=== PATIENT | male | born 1940 | race Caucasian/White ===

== ENCOUNTER 2017-06-23 11:17 | Inpatient (IN) | payer MEDICARE ==
--- OUTSIDE RECORDS SUMMARY | 2017-06-23 11:41 | XMS REPORT ---
:1940 External Reference #:[id number] Author Organization [facility] Address [address] [place] [address] Phone [phone] Care Team Providers Name Role Phone King Aponte MD Care Team Information Conference Center Coordinator Unavailable Juno Higgins M.D. Primary Care Physician Unavailable Payers Type Date Identification Numbers Payment Provider Subscriber Medicare Primary Policy Number: [id number] Medicare-[facility] Govn Chetan Finleyеленаgirish SRVS PayID: [id number] [address] [place] [address] Medigap Part B Policy Number: [id number] Aar Chetan Alysa Raul PayID: [id number] [address] [place] [address] Problems Date Description Provider Status Onset: 04/05/2009 Essential hypertension Tera Yoder MD Active Onset: 06/15/2013 Diaphragmatic hernia Juno Cohen M.D. Active Onset: 06/15/2013 Esophageal dysmotility Juno Cohen M.D. Active Onset: 06/02/2013 Essential tremor Juno Cohen M.D. Active Onset: 06/02/2013 Esophageal dysphagia Juno Cohen M.D. Active Onset: 03/04/2012 Difficulty speaking Juno Cohen M.D. 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 Polyethylene Active 3350NF 17 GM in [place], Glycol 1000 /0000 8 ounces Juno Rodriguez of water Santa daily Salagen Active 5mg 1 po qid [place], 0000 prn Juno Rodriguez M.D. Melatonin Active 1 po [place], /0000 daily Juno Rodriguez M.D. Requip Active 2mg 1 po bid [place], 0000 Juno Rodriguez M.D. Warfarin Sodium Active 2.5mg [place], 0000 Juno Rodriguez M.D. Levocetirizine Active 5mg 1 po [place], Dihydrochloride / daily Juno Rodriguez M.D. Vitamin D Active as [place], 0000 directed Juno Rodriguez M.D. Fluoxetine HCL Active Capsules 50mg Midura, King /0000 Sumatriptan Active Tablets 100mg Midura, King Succinate Iron Active Tablets Unknown Pseudoephedrine Active Tablets 30mg 1 two Unknown HCL times per day Phenylephrine 04/22 Hx Solution 2.5% nasal Juno N. HCL /2017 spray Vicki - M.D. 06/17 Ipratropium 04/22 Hx Solution 0.06% 3unit 2 sprays J30.0 Juno N. [place] /2017 s in each Vicki, - nostril 4 M.D. 06/17 times day as needed for rhinitis Lansoprazole 04/01 Hx Capsules 30mg 60cap Take One Juno Cortez /2012 DR frederick Capsule Vicki, - By Mouth M.D. 05/14 Twice Day, 30 Minutes Before Breakfast And Dinner Prevacid 08/20 Hx Capsules 30mg 1mont 1 tab po Tera Nixon DR montoya bid (30 MD Beba - min 06/02 before breakfast and dinner) Tizanidine HCL Hx 4mg take 2 po [place], /0000 tid Kate Bernard M.D. 04/22 Neurontin /00 Hx Unknown - 08/20 Stool Softener / Hx Unknown / - 08/20 Simvastatin Hx Unknown / - 08/20 Ranitidine /00 Hx Unknown / - 08/20 Melatonin Hx Unknown / - 08/20 Testosterone Hx Unknown Enanthate / - 06/02 Betamethasone 00/00 Hx 0.05% apply to [place], /0000 feet as Juno Rodriguez Dipropionate - yuliet M.DLucero 05/14 pr Famotidine / Hx Unknown - 12/24 Topamax Hx 100mg 1 po [place], /0000 daily Kate Bernard M.D. 04/22 Klonopin 00/ Hx 1mg 1 po at [place], /0000 qhs then Kate Bernard 1/2 tab M.DLucero 04/22 Prevacid 00/ Hx Unknown - 12/24 Clotrimazole Hx 1-0.05% apply to [place], /0000 feet as Juno Rodriguez - yuliet M.DLucero 05/14 pr Naproxen 00/ Hx Unknown - 06/02 Zofran / Hx Unknown / - 06/02 Beconase Aq / Hx Unknown - 06/02 Singulair Hx 10mg [place], /0000 Kate Bernard M.D. 04/22 Imitrex 00/ Hx 100mg 1 po prn [place], /0000 Kate Bernard M.D. 04/22 Trazodone HCL 00/ Hx 150mg 1 po qhs [place], /0000 Kate Bernard M.D. 04/22 Bentyl 00/00 Hx Unknown / - 12/24 Amantadine HCL 00/00 Hx 100mg 1 po bid [place], /0000 Kate Bernard M.D. 05/14 Ondansetron HCL 00/00 Hx 4mg [place], /0000 Kate Bernard M.D. 04/22 Neurontin Hx 300mg [place], /0000 Kate Bernard M.D. 05/14 Saw [place] / Hx as [place], /0000 directed Kate Bernard M.D. 05/14 Clomiphene 0000 Hx 50mg as [place], Citrate /0000 directed Kate Bernard M.D. 05/14 Omeprazole 00/00 Hx Midura, King /0000 MD - 04/22 Fluoxetine HCL 00/00 Hx Capsules 20mg Midura, King (PMDD) /0000 - 04/22 Levocetirizine Hx Tablets 5mg Duke MCGRAW, Dihydrochloride /0000 [facility] - [facility]/22 Montelukast / Hx Tablets 10mg Midura, King Sodium /0000 MD - 04/22 Morphine Sulfate Hx Tablets 15mg Midura, King /0000 MD - 04/22 Fluoxetine HCL Hx Capsules 10mg Midura, King /0000 MD - 04/22 Qnasl Hx Aerosol 80mcg/Act Alex P.Darian, /0000 Richar - 06/17 Polyethylene / Hx Powder 3350NF Midura, King Glycol 3350 /0000 MD - 04/22 Ropinirole HCL /00 Hx Tablets 1mg Midura, King /0000 MD - 04/22 Azelastine HCL Hx Solution 0.15% Fenstermacher (Nasal) / Janessa HARTMAN - 06/17 Warfarin Sodium /00 Hx Tablets 5mg Midura, King /0000 MD - 04/22 Clonazepam / Hx Tablets 0.125mg Midura, King /0000 Dispers - 04/22 Trazodone HCL Hx Tablets 50mg Midura, King /0000 MD - 04/22 Topiramate / Hx Tablets 100mg Midura, King /0000 MD - 04/22 Symbicort 00 Hx Aerosol 160-4.5mc Duke MCGRAW, /0000 g/Act Андрей - 04/22 Phenylephrine Hx Solution 2.5% Unknown HCL /0000 - 04/22 Vital Signs Date Vital Result Comment 06/17/2017 Weight 154.00 lb Weight in kg's 69.854 Height 67 inches 5'7" Height in cm's 170.2 cm BMI (Body Mass Index) 24.1 kg/m2 04/22/2017 BP Systolic 160 mmHg BP Diastolic 100 mmHg Heart Rate 65 /min Respiratory Rate 17 /min Weight 154.00 lb Weight in kg's 69.854 Height 67 inches 5'7" Height in cm's 170.2 cm BMI (Body Mass Index) 24.1 kg/m2 05/14/2016 BP Systolic 93 mmHg BP Diastolic 58 mmHg Heart Rate 68 /min Respiratory Rate 17 /min Weight 154.00 lb Weight in kg's 69.854 Height 67 inches 5'7" Height in cm's 170.2 cm BMI (Body Mass Index) 24.1 kg/m2 11/28/2015 BP Systolic 99 mmHg BP Diastolic 49 mmHg Heart Rate 71 /min Respiratory Rate 17 /min Weight 154.00 lb Weight in kg's 69.854 Height 67 inches 5'7" Height in cm's 170.2 cm BMI (Body Mass Index) 24.1 kg/m2 08/18/2013 BP Systolic 119 mmHg BP Diastolic 69 mmHg Heart Rate 91 /min Respiratory Rate 16 /min Weight 185.00 lb Weight in kg's 83.916 Height 67 inches 5'7" Height in cm's 170.2 cm BMI (Body Mass Index) 29.0 kg/m2 06/02/2013 BP Systolic 128 mmHg BP Diastolic 72 mmHg Heart Rate 71 /min Respiratory Rate 16 /min Weight 179.00 lb Weight in kg's 81.194 Height 67 inches 5'7" Height in cm's 170.2 cm BMI (Body Mass Index) 28.0 kg/m2 06/02/2013 Respiratory Rate 17 /min Weight 179.00 lb Weight in kg's 81.194 Height 67 inches 5'7" Height in cm's 170.2 cm BMI (Body Mass Index) 28.0 kg/m2 03/04/2012 BP Systolic 150 mmHg BP Diastolic 80 mmHg Heart Rate 74 /min Respiratory Rate 16 /min Weight 186.00 lb Weight in kg's 84.370 Height 67 inches 5'7" Height in cm's 170.2 cm BMI (Body Mass Index) 29.1 kg/m2 08/21/2011 BP Systolic 121 mmHg BP Diastolic 68 mmHg Heart Rate 62 /min Respiratory Rate 16 /min Weight 186.00 lb Weight in kg's 84.370 Height 67 inches 5'7" Height in cm's 170.2 cm BMI (Body Mass Index) 29.1 kg/m2 04/05/2009 BP Systolic 106 mmHg BP Diastolic 76 mmHg Heart Rate 77 /min Respiratory Rate 16 /min Results Test Date Test Result H/L Range Note Surgical Pathology 10/29/2013 S RUN DATE: <SEE NOTE> Surgical Pathology 09/26/2011 Surgical Pathology 2 <SEE NOTE> 1 RUN DATE: 11/01/13 [facility] LAB LIVE PAGE 1 RUN TIME: [address] [place] [id number] Specimen Inquiry Name: CHETAN CARTER : [address]: Johnny Beckman MD Acct: [id number] Unit: [id number] AGE: 73 Location: ENDO Re10/29/13 SEX: M Status: REG REF SPEC: [id number] FRANCISCO: 10/29/13- SUBM DR: Johnny Beckman MD REQ: [id number] RECD: 10/29/13-1170 STATUS: SOUT OTHR DR: King Cohen MD _ ORDERED: LEVEL IV FINAL DIAGNOSIS Esophagus, GE junction, biopsies: A. Gastroesophageal transition zone mucosa with mild reflux esophagitis and extensive goblet cell metaplasia. B. Reactive squamous and glandular epithelial changes. C. No dysplasia identified. CLINICAL HISTORY Garcia's esophagus, GERD POST-OPERATIVE DIAGNOSIS EGD, u.c. crico negative, prominent epiglottis, esophagus negative. Distal esophagus islands of unremarkable Garcia's. No erosive esophagitis. Stomach, pylorus , and duct retained vegetable material - little digestion. No mucosal disease - impaired gastric peristalsis despite antral initiation. Conclusion: Stable Garcia's, 2. Persistent gastric motility disorder and bezoars. GROSS DESCRIPTION The specimen is received in formalin labeled Chetan Carter, Garcia's Biopsies and consists of a 0.8 x 0.5 x 0.2 cm. aggregate of multiple celaya-white irregular soft tissue fragments. Submitted entirely, one cassette. Signed (signature on file) Mike Nuñez MD 1410 END OF REPORT * ML=Testing performed at Main Lab DEPARTMENT OF PATHOLOGY, [address] [place] [address] Mike Nuñez M.D. Director [facility] # [id number] 2 --- RUN DATE: 09/27/11 [facility] NMI LIVE PAGE 1 RUN TIME: 1340 Specimen Inquiry RUN USER: INTERFACE -- [id number] Status: REG REF Re09/26/11 Age/Sex: 71/M Unit#: [id number] Location: [facility]. : [birth year] -- Specimen: [id number] SOUT Spec Date:09/26/11- Dr: Johnny Beckman MD Spec Type: SURGICAL P Received:09/26/11-1252 Copies to: Juno pearce MD SPECIMEN DISTAL ESOPHAGUS BIOPSIES HISTORY POST-OP DIAGNOSIS: No hiatal hernia. Possible short segment Garcia's. CLINICAL INFORMATION: Voice change. Choking episodes. Reflux. GROSS DESCRIPTION The specimen is received in formalin labelled Chetan Carter, Distal Esophagus Biopsies, and consists of several fragments of celaya-brown tissue measuring in aggregate 0.8 x 0.8 x 0.2 cm. Submitted entirely, one cassette. DIAGNOSIS Distal esophagus, biopsy: A. Squamous mucosa with evidence of reflux disease. B. Cardia type mucosa with extensive intestinal metaplasia and acute gastritis. C. Indefinite for dysplasia. COMMENT Due to marked acute inflammation, definitive evidence of dysplasia cannot be done at this point. Repeat biopsy after treatment and close follow-up is recommended. Signed Electronically by: LEON HYDE 09/27/11 1340 -- -- DEPARTMENT OF PATHOLOGY, [address] [place] [address] [facility] Permit #[id number] Mike Nuñez M.D. Director Leon Hyde M.D. [employer] Dir panfilo -- Procedures Date CPT Code Description Status 05/14/2016 48990 Fiberoptic Laryngoscopy Completed 08/18/2013 62846 Behavioral & Qualitative Analysis Of Voice & Completed Resonance 08/18/2013 80354 Videostroboscopy Completed 06/02/2013 85318 Flex Fiberoptic End Of Swallow Ta Completed 06/02/2013 59818 Eval Of Swallowing Function Oral Completed 03/04/2012 32384 Eval Of Speech, Voice, Communicat Completed 03/04/2012 36198 Videostroboscopy Completed 08/21/2011 41833 Tympanometry Completed 08/21/2011 49902 Comprehensive Audiogram Completed 08/21/2011 82418 Fiberoptic Laryngoscopy Completed 04/05/2009 07005 Fiberoptic Laryngoscopy Completed Encounters Type Date Location Provider CPT E/M Dx Office Visit 06/17/2017 2:15p [place],After 03/31/07 Juno Cohen, 69453 J30.0 [place] H92.02 Office Visit 04/22/2017 3:15p [place],After 03/31/07 Juno Cohen 98404 R51 [place] J30.0 J30.0 R51 Office Visit 11/28/2015 1:45p [place],After 03/31/07 Juno Cortez 66000 S02.2xxD [place] Cohen Office Visit 06/15/2013 2:45p [place],After 03/31/07 Juno Cortez 74094 530.5 [place] Cohen 553.3 Office Visit 12/25/2011 2:15p [place],After 03/31/07 [place] [address] 784.49 530.81 Office Visit 10/23/2011 2:45p [place],After 03/31/07 [place] [address] 784.49 530.81 Office Visit 08/21/2011 2:00p [place],After 03/31/07 [place] [address] 784.49 530.81 389.10 Office Visit 04/05/2009 2:00p [place],After 03/31/07 [place] [address] 527.2 787.20 478.79 401.9 Plan of Care 06/17/2017 - Juno Cohen M.D.J30.0 Vasomotor rhinitisComments:The patient returned today for his rhinitis that I thought was vasomotor rhinitis. He has stopped the Phenylephrine and the Q-Nasl and the Azelastine and the Ipratropium bromide and his headaches are better and his nose is feeling good. As long as he is dong well that is what is important. I do recommend some saline spray. His is to start CPAP and I have recommended he use humidity when he starts the CPAP. you can also get CPAP induced rhinitis and the best option if this happens is the Ipratropium bromide at bedtime.H92.02 Otalgia, left earComments:He also reports some left ear pain. I think this might be referred pain from some cervical musculoskeletal problems He used to box.
--- OUTSIDE RECORDS SUMMARY | 2017-06-23 11:42 | XMS REPORT ---
:1940 External Reference #:[id number] Author Organization [facility] Address [address] [facility] [address] [place] [address] Phone [phone] Care Team Providers Name Role Phone King Aponte MD Primary Care Physician Unavailable Payers Type Date Identification Numbers Payment Provider Subscriber Medicare Primary Effective: Policy Number: Medicare Chetan Watt 1997 [id number] Raul PayID: [id number] [address] [place] [address] [facility] Policy Number: [facility] Chetan Carter [id number] PayID: [id number] [address] [place] [address] Problems Date Description Provider Status Onset: 06/07/2013 Electrocardiogram abnormal Isabella Bejarano M.D. Onset: 06/07/2013 Mixed hyperlipidemia Isabella Bejarano M.D. Onset: 06/07/2013 Conduction disorder of the heart Isabella Bejarano M.D. Onset: 07/01/2013 Supraventricular premature beats Nurse Visit cc Active Onset: 07/01/2013 Premature beats Nurse Visit cc Active Onset: 09/08/2013 Chest pain Isabella Bejarano M.D. Onset: 04/11/2014 Lumbosacral stenosis Chetna Alcazar M.D. Active Onset: 04/11/2014 Chronic migraine without aura Chetna Alcazar M.D. Active Onset: 04/11/2014 Restless legs Chetna Alcazar M.D. Active Onset: 04/11/2014 Idiopathic peripheral neuropathy Chetna Alcazar M.D. Active Onset: 04/19/2015 Lesion of ulnar nerve Chetna Alcazar M.D. Active Onset: 11/09/2015 Localized, primary osteoarthritis Jodi Brothers M.D. 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 Cigarette Use Never Smoked Cigarettes ETOH Use Denies alcohol use Smoking Patient has never smoked Recreational Drug Use Denies Drug Use Daily Caffeine Consumes on average 2 cups of 2-3 regular coffee per day Exercise Type/Frequency Exercises regularly walks every other on treadmill, dance Not recently, not feeling well 04/24/17, still on hold 06/16/17 Allergies, Adverse Reactions, Alerts Date Description Reaction Status Severity Comments 09/04/2015 Wellbutrin "drunk feeling" active when taken with trazodone 04/28/2013 NKDA inactive Medications Medication Date Status Form Strength Qnty SIG Indications Ordering Provider Ondansetron 05/31 Active Tablets 4mg 30tab 1 tab Chetna /2015 Dispers s under gregory Alcazar M.D. every 8 hours as needed for nausea Sumatriptan Active Tablets 100mg 1 tab po Breiman, Succinate / prn MD Juno migraine Polyethylene Active Powder 3350NF qam Darlow, Glycol 3350 /0000 Garret Farmer MD Pilocarpine Active Tablets 5mg 1x day prn Breiman, Hydrochloride / MD [facility] Warfarin Sodium Active Tablets 2.5mg 1 tab po Brown, by mouth Blaze, per protocol Levocetirizine Active Tablets 5mg 90tab 1 po qd Unknown Dihydrochloride /0000 s Omeprazole [address] 20mg 30cap 1 by mouth Unknown /0000 s every day Morphine Sulfate Active Tablets 15mg 60tab 4 tablets Unknown Ir /0000 s po at night Requip 00 Active Tablets 1mg 90tab 1 to 2 Unknown /0000 s tabs everyday Fluoxetine HCL Active Capsules 20mg 2 by mouth Midura, /0000 once MD King daily. 50 mg total per day. Planning to taper to none 06/16/17 Vitamin D3 Active Capsules 2000Unit 1 by mouth Unknown /0000 every day Vitamin B Active Tablets 1 by mouth Unknown Complex /0000 every day Ferrous Active Tablets 325(36Fe) take 1 Unknown Gluconate /0000 mg tablet by mouth twice a day Melatonin Active Capsules 3mg 1 tab by Unknown /0000 mouth every night at bedtime Testosterone Active Solution Im once Unknown Cypionate /0000 every 3 weeks Fluoxetine HCL Active Capsules 10mg 1 by mouth Unknown / every day, in addition to 20 mg tabs. Total 50 mg per day. Planning to taper to none 06/16/17 [place] 03/14 Hx Tablets 5-325mg 30tab 1-2 by s mouth q4-6 Brothers, - hour as M.D. 10/08 needed pain [place] 02/06 Hx Tablets 5-325mg 40tab one to two s tabs by Brothers, - mouth M.D. 02/26 every 4- hours as needed pain [place] 01/28 Hx Tablets 5-325mg 40tab 1-2 by s mouth Brothers, - every 4 to M.D. 02/26 6 hours needed Ondansetron 06/28 Hx Tablets 4mg 30tab 1 tab Q 8h Dispers s sl prn for Ottoniel, - nausea M.D. 07/26 Enoxaparin 06/07 Hx Solution 80mg/0.8M Qutaybeh Sodium /2013 L S. - Maghaydah, 07/23 M.D. Gabapentin 02/02 Hx Capsules 300mg 90cap take 1 po s qhs Ottoniel, - M.D. 04/11 Ropinirole HCL Hx Tablets 1mg 90tab 1 tab by Chetna / s mouth in Ottoniel, - am, 1 by M.DLucero 09/02 mouth hour prior to bedtime, Nasonex 00/00 Hx Suspension 50mcg/Act Breiman, /0000 MD Juno - 04/28 Flunisolide /00 Hx Solution 25mcg/Act Brown, /0000 (0.025%) Kate Thaukr MD 04/28 Androgel Pump 00/00 Hx Gel 20.25mg/A Topical Law, Andrea, /0000 ct daily - (1.62%) 06/07 Clonazepam /00 Hx Tablets 1mg 1 tab tid Brown, /0000 Kate Thakur MD 06/29 Morphine Sulfate 00/00 Hx Tablets 15mg 1 tab qid Brown, /0000 prn Kate Thakur MD 06/07 Famotidine Hx Tablets 40mg 1 tab po [place], /0000 daily Kate Kellogg [employer] 06/07 Tizanidine HCL / Hx Tablets 4mg 1 tab po Brown, /0000 qhs up to Blaze - 6/day prn 09/11 (pt /2015 discontinu ed) Trazodone HCL Hx Tablets 100mg 1 tab po Breiman, /0000 qhs prn- MD Juno - pt states 10/08 tapering, currently 50mg Topiramate /00 Hx Tablets 100mg 1 po qam Breiman, /0000 and 3 po MD Juno - qpm 10/08 Montelukast /00 Hx Tablets 10mg 1 tab po Breiman, Sodium /0000 qhs MD Juno - 07/26 Pancrelipase / Hx Caps [id number] 1 cap po West, /0000 Part s tid estefani Turner MD - meals 02/26 Enoxaparin /00 Hx Solution 80mg/0.8M Brown, Sodium /0000 L Kate Thakur MD 04/28 Levocetirizine 00 Hx Tablets 5mg Brown, Dihydrochloride /0000 Kate Thakur MD 04/28 Fluticasone 00 Hx Suspension 50mcg/Act Brown, Propionate /0000 Kate Thakur MD 04/28 Ondansetron Odt Hx Tablets 4mg 30tab 1 tab sl Chetna /0000 Dispers s prn Kate Alcazar M.D. 05/31 Ondansetron HCL Hx Tablets 4mg Kevin, /0000 Blaze - 01/18 Axiron Hx Solution 30mg/Act Unknown / - 04/[address] 30mg Gisela, /0000 MD Juno - 04/28 Nystatin Hx Suspension [id number] Rk, /0000 t/ML MD Johnny - 04/28 Androderm Hx Patches 4mg/24HR Kevin, / 24HR Blaze, - 04/28 Amoxicillin/Clav Hx Tablets 875-125mg Kevin ulanate / Blaze, Potassium - 04/28 Prednisone Hx Tablets 10mg Kevin, / Blaze, - 04/[address] 15mg Gisela, /0000 MD Juno - 04/28 Levofloxacin Hx Tablets 750mg Kevin, / Blaze, - 04/28 Clarithromycin Hx Tablets 500mg Unknown /0000 - 04/28 Testosterone Hx Oil 200mg/ml Kevin Enanthate / Blaze, - 04/28 Betamethasone Hx Cream 0.05% Breiman, Dipropionate /0000 MD Juno - 11/01 Beconase Aq Hx Suspension 42mcg/Spr Celiaimalisette, /0000 ay MD Juno - 09/14 Testosterone Hx q 2 weeks Unknown /0000 - 02/26 Tramadol Hx Tablets 50mg 50tab prn Unknown /0000 s - 09/14 Oxycodone HCL Hx Tablets 5mg 30tab 1-2 po qhs Unknown /0000 s prn - 03/01 Qnasl Hx Aerosol 80mcg/Act 8.700 2 Unknown /0000 gm inhalation - s in each 06/15 nostr once daily Gabapentin Hx Capsules 100mg 1 by mouth Unknown /0000 qhs - 08/30 Trazodone HCL Hx Tablets 50mg additional Unknown /0000 prn - pt - states 03/07 tapering /2015 Lyrica 00/00 Hx Capsules 50mg (? 3 tablets Unknown /0000 Dose) at bedtime - 09/02 Ropinirole HCL Hx Tablets ER 2mg 1 by mouth Unknown ER /0000 24HR every - night as 09/02 Linzess Hx Capsules 145mcg Take 04/03 Unknown /0000 prn - 04/24 Clonazepam Hx Tablets 0.5 tapering Unknown /0000 down to - 04/03 tab 03/04 by mouth daily Iron Complex Hx Capsules 1 by mouth Unknown /0000 every day - 11/14 Wellbutrin XL Hx Tablets ER 150mg take 1 by Unknown /0000 24HR mouth each - day 04/24 Ipratropium Hx Solution 0.06% instill 2 Unknown [place] sprays - into each 06/15 nostril twice a day as needed for runny nose Azelastine HCL Hx Solution 0.15% Unknown (Nasal) / - 06/15 Vital Signs Date Vital Result Comment 06/16/2017 Height 67.5 inches 5'7.50" Weight 186.25 lb Heart Rate 74 /min BP Systolic Sitting 118 mmHg Lue large cuff BP Diastolic Sitting 70 mmHg Lue large cuff Respiratory Rate 16 /min O2 % BldC Oximetry 98 % On Ra BMI (Body Mass Index) 28.7 kg/m2 04/24/2017 Height 67.5 inches 5'7.50" Weight 176.50 lb no shoes Heart Rate 72 /min BP Systolic Sitting 148 mmHg Rue reg cuff BP Diastolic Sitting 84 mmHg Rue reg cuff Respiratory Rate 16 /min O2 % BldC Oximetry 98 % On Ra BMI (Body Mass Index) 27.2 kg/m2 Neck Circumference in inches 16 03/05/2017 Height 67.5 inches 5'7.50" Weight 177.00 lb Heart Rate 64 /min BP Systolic Sitting 110 mmHg BP Diastolic Sitting 64 mmHg Respiratory Rate 16 /min BMI (Body Mass Index) 27.3 kg/m2 11/15/2016 Height 67.5 inches 5'7.50" Weight 160.00 lb Heart Rate 60 /min BP Systolic Sitting 112 mmHg BP Diastolic Sitting 82 mmHg Respiratory Rate 12 /min BMI (Body Mass Index) 24.7 kg/m2 10/09/2016 Height 67.5 inches 5'7.50" Weight 156.00 lb with shoes Heart Rate 68 /min BP Systolic Sitting 112 mmHg LA reg cuff BP Diastolic Sitting 62 mmHg LA reg cuff BMI (Body Mass Index) 24.1 kg/m2 Ejection Fraction 55% - 60% echo 06/09/13 05/02/2016 Height 67.5 inches 5'7.50" Weight 155.00 lb Respiratory Rate 16 /min Pain Level 3 BMI (Body Mass Index) 23.9 kg/m2 04/04/2016 Height 67.5 inches 5'7.50" Weight 155.00 lb Body Temperature 98.9 F BMI (Body Mass Index) 23.9 kg/m2 03/18/2016 Height 67.5 inches 5'7.50" Weight 155.00 lb Pain Level 8 BMI (Body Mass Index) 23.9 kg/m2 03/07/2016 Height 67.5 inches 5'7.50" Weight 155.00 lb Pain Level 2 BMI (Body Mass Index) 23.9 kg/m2 02/28/2016 Height 67.5 inches 5'7.50" Weight 155.00 lb Heart Rate 80 /min BP Systolic Sitting 122 mmHg BP Diastolic Sitting 68 mmHg Respiratory Rate 18 /min BMI (Body Mass Index) 23.9 kg/m2 02/05/2016 Height 67.5 inches 5'7.50" Weight 157.00 lb Body Temperature 97.6 F BMI (Body Mass Index) 24.2 kg/m2 01/17/2016 Height 67.5 inches 5'7.50" Weight 157.00 lb Heart Rate 69 /min BP Systolic 121 mmHg BP Diastolic 77 mmHg BMI (Body Mass Index) 24.2 kg/m2 12/14/2015 Height 65.5 inches 5'5.50" Weight 165.00 lb Pain Level 5 BMI (Body Mass Index) 27.0 kg/m2 11/09/2015 Height 65.5 inches 5'5.50" Weight 157.00 lb Heart Rate 60 /min Respiratory Rate 16 /min Pain Level 7 BMI (Body Mass Index) 25.7 kg/m2 09/20/2015 Height 67.5 inches 5'7.50" Weight 156.00 lb Heart Rate 76 /min BP Systolic Sitting 122 mmHg BP Diastolic Sitting 64 mmHg Respiratory Rate 16 /min BMI (Body Mass Index) 24.1 kg/m2 09/19/2015 Height 67.5 inches 5'7.50" Weight 156.75 lb with shoes Heart Rate 72 /min BP Systolic 126 mmHg LA reg cuff BP Diastolic 78 mmHg LA reg cuff BMI (Body Mass Index) 24.2 kg/m2 Ejection Fraction 55% stress test 07/22/13 09/04/2015 Height 67.5 inches 5'7.50" Weight 161.00 lb Heart Rate 74 /min BP Systolic Sitting 106 mmHg BP Diastolic Sitting 62 mmHg Respiratory Rate 16 /min BMI (Body Mass Index) 24.8 kg/m2 07/06/2015 Height 67.5 inches 5'7.50" Weight 168.00 lb Heart Rate 76 /min BP Systolic Sitting 110 mmHg BP Diastolic Sitting 76 mmHg Respiratory Rate 17 /min BMI (Body Mass Index) 25.9 kg/m2 04/19/2015 Height 67.5 inches 5'7.50" Weight 168.00 lb Heart Rate 60 /min BP Systolic Sitting 120 mmHg BP Diastolic Sitting 78 mmHg Respiratory Rate 14 /min BMI (Body Mass Index) 25.9 kg/m2 11/28/2014 Height 67.5 inches 5'7.50" Weight 172.00 lb w/shoes Heart Rate 66 /min BP Systolic Sitting 118 mmHg LA reg cuff BP Diastolic Sitting 78 mmHg LA reg cuff BMI (Body Mass Index) 26.5 kg/m2 Ejection Fraction 55 Stress test 07/22/13 11/02/2014 Height 67.5 inches 5'7.50" Weight 172.00 lb Heart Rate 64 /min BP Systolic Sitting 100 mmHg BP Diastolic Sitting 68 mmHg Respiratory Rate 14 /min BMI (Body Mass Index) 26.5 kg/m2 08/31/2014 Height 67.5 inches 5'7.50" Weight 182.00 lb Heart Rate 68 /min BP Systolic Sitting 120 mmHg BP Diastolic Sitting 66 mmHg Respiratory Rate 16 /min BMI (Body Mass Index) 28.1 kg/m2 04/11/2014 Height 67.5 inches 5'7.50" Weight 190.00 lb Heart Rate 72 /min BP Systolic Sitting 106 mmHg BP Diastolic Sitting 64 mmHg Respiratory Rate 16 /min BMI (Body Mass Index) 29.3 kg/m2 03/02/2014 Height 67.5 inches 5'7.50" Weight 196.00 lb Heart Rate 80 /min BP Systolic Sitting 118 mmHg LA, reg BP Diastolic Sitting 74 mmHg LA, reg BMI (Body Mass Index) 30.2 kg/m2 09/22/2013 Height 67.5 inches 5'7.50" Weight 188.00 lb Heart Rate 88 /min BP Systolic Sitting 114 mmHg BP Diastolic Sitting 68 mmHg Respiratory Rate 18 /min BMI (Body Mass Index) 29.0 kg/m2 09/15/2013 Height 67.5 inches 5'7.50" Weight 180.00 lb Heart Rate 100 /min BP Systolic Sitting 120 mmHg BP Diastolic Sitting 76 mmHg Respiratory Rate 16 /min BMI (Body Mass Index) 27.8 kg/m2 09/08/2013 Heart Rate 80 /min BP Systolic Sitting 100 mmHg BP Diastolic Sitting 70 mmHg Respiratory Rate 16 /min 07/26/2013 Heart Rate 96 /min BP Systolic Sitting 128 mmHg BP Diastolic Sitting 68 mmHg 06/07/2013 Weight 187.00 lb Heart Rate 68 /min BP Systolic Sitting 130 mmHg BP Diastolic Sitting 80 mmHg Respiratory Rate 16 /min 04/28/2013 Heart Rate 64 /min BP Systolic Sitting 120 mmHg BP Diastolic Sitting 76 mmHg Respiratory Rate 12 /min 03/04/2013 Height 67.5 inches 5'7.50" Weight 174.00 lb Heart Rate 63 /min BP Systolic 114 mmHg BP Diastolic 71 mmHg BMI (Body Mass Index) 26.8 kg/m2 Results Test Date Test Result H/L Range Note Laboratory test 07/20/2015 Surgical Pathology SEE RESULT BELOW 1 finding Laboratory test 09/08/2013 Troponin I 0.00 ng/mL <0.03 2, 3 finding Basic Metabolic Panel 09/08/2013 Sodium 136 mmol/L 133-145 2 Potassium 3.9 mmol/L 3.7-5.6 2 Chloride 105 mmol/L 101-111 2 Co2 Carbon Dioxide 26 mmol/L 22-32 2 Anion Gap 5 mmol/L 2-11 2 Glucose 93 mg/dL 70-100 2 Blood Urea Nitrogen 22 mg/dL 6-24 2 Creatinine 1.40 mg/dL High 0.67-1.17 2 BUN/Creatinine Ratio 15.7 8-20 2 Calcium 9.0 mg/dL 8.6-10.3 2 Egfr Non- 50.0 >60 2 Egfr 64.2 >60 2, 4 Order 07/01/2013 Holter Monitor <pending> 1 SEE RESULT BELOW Name: CHETAN CARTER : [address]: Johnny Beckman MD Acct: [id number] Unit: [id number] AGE: 75 Location: ENDO Re07/20/15 SEX: M Status: REG REF SPEC: [id number] FRANCISCO: 07/20/15-[address] [facility] [address]: Johnny Beckman MD REQ: [id number] RECD: 07/20/153283 STATUS: VALERIE FLOWERS DR: Asim Slaughter MD _ ORDERED: LEVEL IV FINAL DIAGNOSIS Esophagus, distal, biopsy: -- Squamous and columnar mucosa with chronic inflammation and intestinal metaplasia. -- Negative for dysplasia. CLINICAL HISTORY Resolved Bezoar 10/13/12 POST-OPERATIVE DIAGNOSIS Body of esophagus - normal, distal esophagus 1-2 cm. 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 Signed (signature on file) Shannen Huynh MD 1359 END OF REPORT * ML=Testing performed at Main Lab DEPARTMENT OF PATHOLOGY, [address] [place] [address] Mike Nuñez M.D. Director [facility] # [id number] 2 PLEASE CALL RESULTS TO [phone] 3 Reference Range and Interpretation: TnI (ng/mL) Interpretation Less Than 0.03 ng/mL Not supportive of diagnosis of [place] 0.03 - 0.50 ng/mL Indeterminate: suggest serial studies if clinically indicated. Greater than 0.5 ng/mL Consistent with diagnosis of [place] 4 Because ethnic data is not always readily available, this report includes an eGFR for both -Americans and non- Americans. The National Kidney Disease Education Program (NKDEP) does not endorse the use of the MDRD equation for patients that are not between the ages of 18 and 70, are , have extremes of body size, muscle mass, or nutritional status, or are non- or non-. According to the National Kidney Foundation, irrespective of diagnosis, the stage of the disease is based on the level of kidney function: Stage Description GFR(mL/min/1.73 m(2)) 1 Kidney damage with normal or decreased GFR 90 2 Kidney damage with mild decrease in GFR 60-89 3 Moderate decrease in GFR 30-59 4 Severe decrease in GFR 15-29 5 Kidney failure <15 (or dialysis) Procedures Date CPT Code Description Status 04/29/2017 66030 Polysomnography Sleep Staging 4+ Parameters Completed 10/09/2016 96023 EKG Tracing & Interpretation Completed 03/12/2016 90084 Neuroplasty &/Or Transposition; Ulnar Nerve At Completed Elbow 03/12/2016 42912 Neuroplasty &/Or Transposition; Ulnar Nerve At Completed Elbow 01/23/2016 64427 Neuroplasty &/Or Transposition; Ulnar Nerve At Completed Elbow 01/23/2016 73226 Neuroplasty &/Or Transposition; Ulnar Nerve At Completed Elbow 09/19/2015 49755 EKG Tracing & Interpretation Completed 07/06/2015 02731 Nerve Conduction 07-08 Studies Completed 07/06/2015 49494 Needle Electromyography Complete, Five Or More Muscles Completed Studied 11/28/2014 08214 EKG Tracing & Interpretation Completed 03/02/2014 69543 EKG Tracing & Interpretation Completed 09/08/2013 35224 EKG Tracing & Interpretation Completed 08/16/2013 21228 Treadmill Interp/Report Only Completed 08/16/2013 62952 Stress Test Supervsn W/Out I/R Completed 07/22/2013 94470 ECHO Stress Test Incl Perf Contiuous ekg Monitoring Completed W/Phys Superv 07/22/2013 01576 ECHO Stress Test Incl Perf Contiuous ekg Monitoring Completed W/Phys Superv 07/01/2013 21109 Holter Monitoring 24 HR New Completed 06/10/2013 48932 ECHO Transthoracic, Real-Time 2D With Doppler And Color Completed Flow 06/07/2013 54880 EKG Tracing & Interpretation Completed 07/15/2012 14818 Xray Knee 3 Views Completed 07/15/2012 19321 Rad Exam; Knee, Ap&L Completed 02/07/2012 07076 Nerve Conduction, Sensory Completed 02/07/2012 20164 Nerve Conduction, Motor W/F-Wave Study Completed 02/07/2012 52720 Nerve Conduction, Motor W/O F-Wave Study Completed 02/07/2012 22780 Needle Electromyography Each Extremity W/Related Completed Paraspinal Areas 12/30/2011 80613 Arthroscopy,Shoulder Decompression Of Subacromial Space Completed W/Acromio 12/30/2011 14641 Arthroscopy,Shoulder Decompression Of Subacromial Space Completed W/Acromio 12/30/2011 18195 Arthroscopy Shoulder Debridement Limited Completed 12/30/2011 01865 Arthroscopy Shoulder Debridement Limited Completed Encounters Type Date Location Provider CPT E/M Dx Office Visit 04/24/2017 [place] [address] R06.83 2:30p [facility] [employer] [facility] G25.81 G47.50 Office Visit 03/05/2017 1:30p [facility] Chetna Alcazar M.D. 31715 G31.84 [facility] [employer] Office Visit 11/15/2016 2:30p [facility] Chetna Alcazar M.D. 32633 G25.81 [facility] [employer] R41.89 Office Visit 10/09/2016 4:40p [facility] Helen Wallace, 18747 E78.2 M.DLucero I34.0 I36.1 Office Visit 02/28/2016 11:00a [facility] Chetna Alcazar M.D. 39200 G56.22 [facility] [employer] R41.89 G25.81 Office Visit 12/14/2015 11:00a [facility] Jodi Brothers 75932 G56.21 Of Soledad Pratt G56.22 Office Visit 11/09/2015 1:00p [facility] Jodi Brothers 60396 G56.21 Of Soledad Pratt G56.22 Office Visit 09/20/2015 2:45p [facility] Chetna Alcazar M.D. 43367 G56.21 [facility] [employer] G56.22 R47.81 Office Visit 09/19/2015 3:20p [facility] Helen Wallace, 13775 E78.2 MLuceroDLucero I34.0 I36.1 Office Visit 09/04/2015 3:30p [facility] Chetna Alcazar M.D. 00136 G56.21 [facility] [employer] G56.22 R47.81 Office Visit 07/06/2015 1:00p [facility] Chetna Alcazar M.D. 90866 G56.21 [facility] [employer] G56.22 G56.02 M54.12 R63.4 Office Visit 04/19/2015 2:30p [facility] Chetna Alcazar M.D. 61128 G25.81 [facility] [employer] G43.709 G56.22 G56.21 Office Visit 03/24/2015 8:46a [facility],rodrigue Gasca, 54711 R55 Hospitalists N.P. R00.2 Office Visit 03/23/2015 8:46a [facility], Oskar Estes M.D. 43531 R55 Hospitalists R00.2 Office Visit 11/28/2014 2:40p [facility] Qutaybeh S. Maghaydah, 45784 356.9 M.D. 794.31 272.2 424.0 397.0 Office Visit 11/02/2014 2:00p [facility] [place] [address] 346.70 [facility] [employer] Office Visit 08/31/2014 3:00p [facility] Chetna Alcazar, 22035 724.02 Services [facility] [employer] MLuceroDLucero 333.94 346.70 780.79 Office Visit 04/11/2014 3:00p [facility] Chetna Alcazar M.D. 30056 724.02 [facility] [employer] 356.9 346.70 333.94 Office Visit 03/02/2014 2:40p [facility] Qutaybeh S. Maghaydah, 14308 794.31 M.D. 272.2 397.0 424.0 Office Visit 09/22/2013 2:30p [facility] MINNIE Díaz 01612PWT 724.02 794.31 356.9 728.89 786.50 Office Visit 09/15/2013 2:15p [facility] Chetna Alcazar M.D. 03918 346.70 [facility] [employer] 724.02 333.94 Office Visit 09/08/2013 2:30p [facility] Qutaybeh S. Maghaydah, 40268 794.31 M.DLucero 786.50 272.2 Office Visit 08/16/2013 10:30a [facility] Qutaybeh S. Maghaydah, 12034 794.31 M.D. 427.89 Office Visit 07/26/2013 1:20p [facility] Qutaybeh S. Maghaydah, 27722 427.61 M.DLucero 427.69 272.2 424.0 397.0 Office Visit 07/22/2013 11:30a [facility] Qutaybeh S. Maghaydah, 83710 794.31 M.DLucero 427.61 427.69 Office Visit 06/07/2013 1:40p [facility] Helen Wallace, 25413 346.70 M.DLucero 794.31 272.2 427.89 Office Visit 04/28/2013 1:30p [facility] Chetna Alcazar M.D. 04172 346.70 [facility] [employer] 333.94 724.02 356.9 Office Visit 03/04/2013 9:30a [facility] Of Giacomo Ortiz M.D. 15793 836.2 C.M.ALucero 840.9 840.0 Office Visit 10/08/2012 2:45p [facility] Of Ambrosio Coughlin 99290 836.2 C.MJonny Pratt Office Visit 09/03/2012 10:30a [facility] Of Ambrosio Coughlin 40315 719.46 C.Rafi Pratt 840.7 Office Visit 07/29/2012 10:15a [facility] Of Ambrosio Coughlin 33794 719.46 C.MJonny Pratt 726.12 Office Visit 07/15/2012 10:15a [facility] Of Ambrosio Coughlin 88511 719.46 C.Rafi Pratt Office Visit 02/07/2012 12:30p [facility] Chetna Alcazar M.D. 48115 356.9 Services Of Bi 724.02 788.62 Office Visit 02/03/2012 1:30p [facility] Chetna Alcazar M.D. 96760 333.94 Services Of Bi 724.02 Office Visit 12/19/2011 11:00a [facility] Of Ambrosio Coughlin M.D. 22427 726.2 C.MJonny 726.19 Office Visit 11/21/2011 10:00a [facility] Of Ambrosio Coughlin 66538 726.19 C.MJonny Pratt 726.2 Office Visit 11/18/2011 1:45p [facility] Chetna Alcazar M.D. 44768 346.90 Services Of [employer] 333.94 Office Visit 05/03/2010 9:00a [facility] Of Giacomo Ortiz M.D. 86619 726.5 C.M.A. 728.89 Office Visit 03/01/2010 8:30a [facility] Of Giacomo Ortiz M.D. 14184 726.5 C.M.A. Office Visit 04/19/2009 1:45a [facility],pc Ashlyn Vyas, 72314 977.9 Hospitalists M.D. 304.90 Office Visit 04/18/2009 2:00a [facility], Ashlyn Lilliam, 74636 300.00 Hospitalists M.D. 304.90 Office Visit 04/17/2009 2:15a [facility], Ashlyn Pradoima, 05786 292.0 Hospitalists M.D. 977.9 300.00 276.8 Office Visit 04/16/2009 3:15a [facility], Ashlyn Vyas, 48158 427.89 Hospitalists M.D. 977.9 292.0 276.8 Office Visit 04/15/2009 12:30a [facility], Nilton Albrecht, 72410 977.9 Hospitalists M.D. 304.90 427.89 Office Visit 01/20/2007 9:30a [facility] Cayetano Olmstead, 38216 354.2 Of [facility] 723.1 723.0 Plan of Care Future Appointment(s):09/12/2017 2:15 pm - Chetna Alcazar M.D. at [facility] [facility]06/16/2017 - Rosario Golden DNP, RN, MANAGER H[employer]AN [employer]OURCES-BCG47.33 Obstructive sleep apnea (adult) (pediatric)New Orders:Sleep-HomecareComments: NPSG AHI 16.6/hour, worse supine 47/hour, prone 40/hour, madelaine oxygen 79% wt 177Follow up:6 weeksRecommendations:Sleep apnea to start PAP at 5-12 cm Review of sleep study in detail. Review of risks of untreated sleep apnea including cardiovascular events: rhythm irregularities, heart attack , stroke; gastroesophageal reflux disease (GERD); diabetes; anxiety, depression ; high blood pressure; accidents (machinery and automobile) Recommendation for PAP other treatment modalities NON-PAP including oral appliance/mandibular advancement device, positional strategies , and surgery discussed. Referral for PAP device to be sent to [facility] [facility] phone: [phone] Equipment appointment will take about 45 minutes, the DME provider will call you within 5 days to set you up for the device. If you do not hear from them call the Sleep Center. The mask will have a 30-day guarantee, if you have mask problems call the DME provider to have a fitting for a different mask.If you have problems with the air pressure call the sleep center and speak to a nurse. If you haveany sleepiness while driving you MUST avoid operating a vehicle or machinery. If you have any further questions, please call the Sleep Disorder Center at [phone].
--- OUTSIDE RECORDS SUMMARY | 2017-06-23 11:42 | XMS REPORT ---
:1940 External Reference #:[id number] Author Organization [facility] Address [address] [facility] [address] [place] [address] Phone [phone] Care Team Providers Name Role Phone King Aponte MD Primary Care Physician Unavailable Payers Type Date Identification Numbers Payment Provider Subscriber Medicare Primary Effective: Policy Number: Medicare Chetan Watt 1997 [id number] Raul PayID: [id number] [address] [place] [address] [facility] Policy Number: [facility] Chetan Carter [id number] PayID: [id number] [address] [place] [address] Problems Date Description Provider Status Onset: 06/07/2013 [...] No known sleep apnea Father due to GA () Father 94 Mother Parkinson's Disease Mother due to Natural Causes () Children None First Sister Alive And Well Social History Type Date Description Comments Marital Status Single Lives With Alone 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 Planning to taper to none 06/16/17 [place] 03/14 Hx Tablets 5-325mg 30tab 1-2 by s mouth q4-6 Brothers, - hour as M.D. 10/08 needed pain [place] 02/06 Hx Tablets 5-325mg 40tab one to two s tabs by Brothers, - mouth M.D. 02/26 every 4- hours as needed pain [place] 01/28 Hx Tablets 5-325mg 40tab 1-2 by [...] Hx Solution 25mcg/Act Brown, /0000 (0.025%) Kate Thakur MD 04/28 Androgel Pump 00/00 Hx Gel 20.25mg/A Topical Law, Andrea, /0000 ct daily - (1.62%) 06/07 Clonazepam /00 Hx Tablets 1mg 1 tab tid Brown, /0000 Kate Thakur MD 06/29 Morphine Sulfate 00/00 Hx Tablets 15mg 1 tab qid Brown, /0000 prn Kate Thakur MD 06/07 Famotidine Hx Tablets 40mg 1 tab po [place], /0000 daily Kate Kellogg PATHOLOGY TECH-C 06/07 Tizanidine HCL / Hx Tablets 4mg [...] [place] - 07/26 Pancrelipase / Hx Caps 30180Mkds 1 cap po [place], /0000 Part s [...] MD Juno - 04/28 Nystatin Hx Suspension 222891Dmv Rk, /0000 t/ML MD Johnny - 04/28 [...] Ipratropium Hx Solution 0.06% instill 2 Unknown [place] sprays - into each 06/15 nostril twice [...] [address]: Johnny Beckman MD Acct: [id number] Unit: [id number] AGE: 75 Location: ENDO Re07/20/15 SEX: M Status: REG REF SPEC: [id number] FRANCISCO: 07/20/15-1240 [facility] DR: Johnny Beckman MD REQ: [id number] RECD: 07/20/151953 STATUS: VALERIE FLOWERS DR: Asim Slaughter MD [...] performed at Main Lab DEPARTMENT OF PATHOLOGY, [address] [place] [address] Mike Nueñz M.D. Director [facility] # [id number] 2 PLEASE CALL RESULTS TO [phone] 3 Reference Range and Interpretation: TnI (ng/mL) Interpretation Less Than 0.03 ng/mL Not supportive of diagnosis of GA 0.03 - 0.50 ng/mL Indeterminate: suggest serial studies if clinically indicated. Greater than 0.5 ng/mL Consistent with diagnosis of GA 4 Because ethnic data is not always [...] Procedures Date CPT Code Description Status 04/29/2017 48806 Polysomnography Sleep Staging 4+ Parameters Completed 10/09/2016 47900 EKG Tracing & Interpretation Completed 03/12/2016 33558 Neuroplasty &/Or Transposition; Ulnar Nerve At Completed Elbow 03/12/2016 45018 Neuroplasty &/Or Transposition; Ulnar Nerve At Completed Elbow 01/23/2016 62964 Neuroplasty &/Or Transposition; Ulnar Nerve At Completed Elbow 01/23/2016 81797 Neuroplasty &/Or Transposition; Ulnar Nerve At Completed Elbow 09/19/2015 44999 EKG Tracing & Interpretation Completed 07/06/2015 15152 Nerve Conduction 07-08 Studies Completed 07/06/2015 22564 Needle Electromyography Complete, Five Or More Muscles Completed Studied 11/28/2014 20386 EKG Tracing & Interpretation Completed 03/02/2014 47063 EKG Tracing & Interpretation Completed 09/08/2013 45100 EKG Tracing & Interpretation Completed 08/16/2013 89654 Treadmill Interp/Report Only Completed 08/16/2013 81584 Stress Test Supervsn W/Out I/R Completed 07/22/2013 17707 ECHO Stress Test Incl Perf Contiuous ekg Monitoring Completed W/Phys Superv 07/22/2013 22697 ECHO Stress Test Incl Perf Contiuous ekg Monitoring Completed W/Phys Superv 07/01/2013 96097 Holter Monitoring 24 HR New Completed 06/10/2013 11820 ECHO Transthoracic, Real-Time 2D With Doppler And Color Completed Flow 06/07/2013 78775 EKG Tracing & Interpretation Completed 07/15/2012 36540 Xray Knee 3 Views Completed 07/15/2012 27741 Rad Exam; Knee, Ap&L Completed 02/07/2012 85122 Nerve Conduction, Sensory Completed 02/07/2012 27579 Nerve Conduction, Motor W/F-Wave Study Completed 02/07/2012 96612 Nerve Conduction, Motor W/O F-Wave Study Completed 02/07/2012 17566 Needle Electromyography Each Extremity W/Related Completed Paraspinal Areas 12/30/2011 50089 Arthroscopy,Shoulder Decompression Of Subacromial Space Completed W/Acromio 12/30/2011 49125 Arthroscopy,Shoulder Decompression Of Subacromial Space Completed W/Acromio 12/30/2011 65420 Arthroscopy Shoulder Debridement Limited Completed 12/30/2011 98090 Arthroscopy Shoulder Debridement Limited Completed Encounters Type Date Location Provider CPT E/M Dx Office Visit 04/24/2017 [place] [address] R06.83 2:30p Services Of [facility] G25.81 G47.50 Office Visit 03/05/2017 1:30p [facility] Chetna Alcazar M.D. 68956 G31.84 Services Of Web Designer Office Visit 11/15/2016 2:30p [facility] Chetna Alcazar M.D. 72463 G25.81 Services Of Web Designer R41.89 Office Visit 10/09/2016 4:40p [facility] Helen Wallace, 87247 E78.2 M.DLucero I34.0 I36.1 Office Visit 02/28/2016 11:00a [facility] Chetna Alcazar M.D. 98426 G56.22 Services Of Web Designer R41.89 G25.81 Office Visit 12/14/2015 11:00a [facility] Jodi Brothers 99252 G56.21 Of Soledad Pratt G56.22 Office Visit 11/09/2015 1:00p [facility] Jodi Brothers 18793 G56.21 Of Soledad Pratt G56.22 Office Visit 09/20/2015 2:45p [facility] Chetna Alcazar M.D. 23255 G56.21 Services Of Web Designer G56.22 R47.81 Office Visit 09/19/2015 3:20p [facility] Helen Wallace, 22411 E78.2 MLuceroDLucero I34.0 I36.1 Office Visit 09/04/2015 3:30p [facility] Chetna Alcazar M.D. 00994 G56.21 Services Of Web Designer G56.22 R47.81 Office Visit 07/06/2015 1:00p [facility] Chetna Alcazar M.D. 46074 G56.21 Services Of Web Designer G56.22 G56.02 M54.12 R63.4 Office Visit 04/19/2015 2:30p [facility] Chetna Alcazar M.D. 63010 G25.81 Services Of Web Designer G43.709 G56.22 G56.21 Office Visit 03/24/2015 8:46a [facility],rodrigue Gasca, 80372 R55 Hospitalists N.P. R00.2 Office Visit 03/23/2015 8:46a [facility], Oskar Estes M.D. 99403 R55 Hospitalists R00.2 Office Visit 11/28/2014 2:40p [facility] Qutaybeh S. Maghaydah, 83850 356.9 M.D. 794.31 272.2 424.0 397.0 Office Visit 11/02/2014 2:00p [facility] [place] [address] 346.70 Services Of Web Designer Office Visit 08/31/2014 3:00p [facility] Chetna Alcazar, 18607 724.02 Services Of Web Designer MLuceroDLucero 333.94 346.70 780.79 Office Visit 04/11/2014 3:00p [facility] Chetna Alcazar M.D. 03943 724.02 Services Of Web Designer 356.9 346.70 333.94 Office Visit 03/02/2014 2:40p [facility] Qutaybeh S. Maghaydah, 22096 794.31 M.D. 272.2 397.0 424.0 Office Visit 09/22/2013 2:30p [facility] MINNIE Díaz 41648QWL 724.02 794.31 356.9 728.89 786.50 Office Visit 09/15/2013 2:15p [facility] Chetna Alcazar M.D. 48881 346.70 Services Of Web Designer 724.02 333.94 Office Visit 09/08/2013 2:30p [facility] Qutaybeh S. Maghaydah, 25229 794.31 M.DLucero 786.50 272.2 Office Visit 08/16/2013 10:30a [facility] Qutaybeh S. Maghaydah, 66661 794.31 M.D. 427.89 Office Visit 07/26/2013 1:20p [facility] Qutaybeh S. Maghaydah, 98592 427.61 M.DLucero 427.69 272.2 424.0 397.0 Office Visit 07/22/2013 11:30a [facility] Qutaybeh S. Maghaydah, 86060 794.31 M.DLucero 427.61 427.69 Office Visit 06/07/2013 1:40p [facility] Helen Wallace, 70736 346.70 M.DLucero 794.31 272.2 427.89 Office Visit 04/28/2013 1:30p [facility] Chetna Alcazar M.D. 88052 346.70 Services Of Web Designer 333.94 724.02 356.9 Office Visit 03/04/2013 9:30a [facility] Of Giacomo Ortiz M.D. 57226 836.2 C.M.ALucero 840.9 840.0 Office Visit 10/08/2012 2:45p [facility] Of Ambrosio Coughlin 14706 836.2 C.MJonny Pratt Office Visit 09/03/2012 10:30a [facility] Of Ambrosio Coughlin 27722 719.46 C.Rafi Pratt 840.7 Office Visit 07/29/2012 10:15a [facility] Of Ambrosio Coughlin 35635 719.46 C.MJonny Pratt 726.12 Office Visit 07/15/2012 10:15a [facility] Of Ambrosio Coughlin 67065 719.46 C.Rafi Pratt Office Visit 02/07/2012 12:30p [facility] Chetna Alcazar M.D. 91019 356.9 Services Of Bi 724.02 788.62 Office Visit 02/03/2012 1:30p [facility] Chetna Alcazar M.D. 21626 333.94 Services Of Bi 724.02 Office Visit 12/19/2011 11:00a [facility] Of Ambrosio Coughlin M.D. 44357 726.2 C.MJonny 726.19 Office Visit 11/21/2011 10:00a [facility] Of Ambrosio Coughlin 79730 726.19 C.MJonny Pratt 726.2 Office Visit 11/18/2011 1:45p [facility] Chetna Alcazar M.D. 56762 346.90 Services Of Web Designer 333.94 Office Visit 05/03/2010 9:00a [facility] Of Giacomo Ortiz M.D. 50865 726.5 C.M.A. 728.89 Office Visit 03/01/2010 8:30a [facility] Of Giacomo Ortiz M.D. 85687 726.5 C.M.A. Office Visit 04/19/2009 1:45a [facility],pc Ashlyn Vyas, 35714 977.9 Hospitalists M.D. 304.90 Office Visit 04/18/2009 2:00a [facility],pc Ashlyn Pradoima, 85298 300.00 Hospitalists M.D. 304.90 Office Visit 04/17/2009 2:15a [facility], Ashlyn Vyas, 39867 292.0 Hospitalists M.D. 977.9 300.00 276.8 Office Visit 04/16/2009 3:15a [facility],pc Ashlyn Vyas, 23474 427.89 Hospitalists M.D. 977.9 292.0 276.8 Office Visit 04/15/2009 12:30a [facility], Nilton Albrecht, 47391 977.9 Hospitalists M.D. 304.90 427.89 Office Visit 01/20/2007 9:30a [facility] Cayetano Olmstead, 22731 354.2 Of [facility] 723.1 723.0 Plan of Care Future Appointment(s):08/05/2017 2:00 pm - Rosario Golden DNP, RN, KRYSTA- at [facility]09/12/2017 2:15 pm - Chetna Alcazar M.D. at [facility]06/16/2017 - Rosario Golden DNP, RN, PATHOLOGY TECH- BCG47.33 Obstructive sleep apnea (adult) (pediatric)New Orders:Sleep- HomecareComments:04/29 NPSG AHI 16.6/hour, worse supine 47/hour, prone 40/ hour, madelaine oxygen 79% wt 177Follow up:6 weeksRecommendations:Sleep apnea to start PAP at 5-12 cm Review of sleep study in detail. Review of risks of untreated sleep apnea including cardiovascular events: rhythm irregularities, heart attack, stroke; gastroesophageal reflux disease (GERD); diabetes; anxiety , depression; high blood pressure; accidents (machinery and automobile) Recommendation for PAP other treatment modalities NON-PAP including oral appliance/mandibular advancement device, positional strategies , and surgery discussed. Referral for PAP device to be sent to [facility] phone: [phone] Equipment appointment will take about 45 minutes, [...] please call the Sleep Disorder Center at .
[2017-06-23] MEDS ORDERED: NS 0.9% 1000 ML* 1,000 ML IV ONE (12:25)
[2017-06-23 13:02] LABS: ABS Basophils 0 10^3/ul (0-0.2); ABS Eosinophils 0.2 10^3/ul (0-0.6); ABS Lymphocytes 0.9 10^3/ul (1.0-4.8); ABS Monocytes 0.7 10^3/ul (0-0.8); ABS Neutrophils 4.8 10^3/ul (1.5-7.7); ABS Nucleated RBC 0 10^3/ul; Eosinophil % 3.1 % (0-6); Hematocrit 44 % (42-52); Hemoglobin 14.9 g/dl (14.0-18.0); Lymphocyte % 13.8 % (25-47); Mean Corpuscular HGB Conc 34 g/dl (31-36); Mean Corpuscular Hemoglobin 31 pg (27-31); Mean Corpuscular Volume 93 fL (80-94); Mean Platelet Volume 9.5 um3 (7.4-10.4); Nucleated Red Blood Cells % 0.1; Platelet Count 179 10^3/ul (150-450); Red Blood Count 4.75 10^6/ul (4.0-5.4); Red Cell Distribution Width 14 % (10.5-15); White Blood Count 6.7 10^3/ul (3.5-10.8)
[2017-06-23 13:20] LABS: EGFR Non-African American 61.5 (>60)
[2017-06-23 13:26] LABS: INR 5.28 (0.77-1.02)
--- NOTE | 2017-06-23 13:28 | RAD ---
HISTORY: Chest pain COMPARISONS: March 23, 2015 VIEWS: 1: frontal portable view of the chest at 12:55 PM FINDINGS: LINES AND TUBES: None. CARDIOMEDIASTINAL SILHOUETTE: The cardiomediastinal silhouette is normal for portable technique. PLEURA: The costophrenic angles are sharp. No pleural abnormalities are noted. LUNG PARENCHYMA: The lungs are clear. ABDOMEN: The upper abdomen is clear. There is no subphrenic gas. BONES AND SOFT TISSUES: No bone or soft tissue abnormalities are noted. IMPRESSION: NO ACTIVE CARDIOPULMONARY DISEASE.
[2017-06-23] MEDS ORDERED: Iohexol 300* (CONTRAST) 10 ML SDV IV ONE (14:59)
--- NOTE | 2017-06-23 16:11 | RAD ---
CLINICAL HISTORY: Right lower quadrant pain. Relevant surgical history includes appendectomy. COMPARISON: Most recent comparison CT of the abdomen and pelvis is dated September 21, 2015 TECHNIQUE: Contrast enhanced CT examination of the abdomen and pelvis from the lung bases through the initial tuberosities. The patient received 100 mL Omnipaque 350 intravenously prior to imaging.The patient received oral contrast as well prior to imaging. FINDINGS: VISUALIZED LUNG BASES: The visualized lung bases are grossly clear. There is no pleural effusion. ABDOMEN AND PELVIS: The liver, spleen, pancreas and adrenal glands are grossly normal in appearance. 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 The gallbladder is normal. The kidneys are normal in appearance without focal mass, calcification or signs of hydronephrosis. The oral contrast has progressed as far as the distal small bowel which limits evaluation of the terminal ileum and colon. At the low right of midline small bowel there is minimal dilatation of the small bowel up to just shy of 3 cm in diameter (coronal image 46). Distal to this there is relative reduction in the luminal diameter of the small bowel.. Consistent with the patient's surgical history, the appendix is not seen. The colon is largely stool-filled. The transverse colon measures 7 cm in diameter. There is no definite wall thickening or focal inflammatory change. There is no gross retroperitoneal or mesenteric lymphadenopathy. The pelvic viscera is normal in appearance. The abdominal aorta and iliac arteries are normal in course and diameter. Degenerative changes include multilevel loss of intervertebral disc height involving the lower thoracic and lumbar spine.There are no sinister bone lesions. IMPRESSION: 1. The midpoint small bowel is relatively dilated up to just shy of 3 cm. Though this does not represent pathologic small bowel dilatation by size criteria, it is comparatively reduced distal to this point potentially representing a partial small bowel obstruction. 2. There is a large amount of stool throughout the length of the colon with the transverse colon minimally dilated up to 7 cm in diameter. Please correlate to clinical signs and symptoms of constipation. 3. The common portal vein is dilated up to 1.6 cm in diameter which can be a finding associated with portal venous hypertension. There are no other signs of portal venous hypertension including dilated perigastric veins or splenomegaly. 4. Additional chronic, degenerative and postsurgical changes described in the body of the report.
[2017-06-23] MEDS ORDERED: NS 0.9% 1000 ML* 1,000 ML IV SCH (18:00)
--- NOTE | 2017-06-23 18:46 | ED ---
Angélica Flaherty Julia, scribed for Gio Muñiz on 06/23/17 at 1224 . Abdominal Pain/Male - HPI Summary HPI Summary: This patient is a 76 year old M presenting to [facility] with a chief complaint of sudden RLQ abdominal pain since this morning. Patient reports nausea for past two days. The patient rates the pain 1/10 in severity. Patient describes pain as gas bubbles. He states he is not passing gas. Patient had an appendectomy. - History of Current Complaint Chief Complaint: EDAbdPain Stated Complaint: RIGHT SIDE ABD PAIN Time Seen by Provider: 06/23/17 12:20 Hx Obtained From: Patient Onset/Duration: Sudden Onset, Lasting Hours - currently improved Severity Initially: Moderate Severity Currently: Mild Pain Intensity: 1 Pain Scale Used: 0-10 Numeric Location: Discrete At: RLQ Radiates: No Associated Signs And Symptoms: Positive: Constipation - unable to pass gas - Allergies/Home Medications Allergies/Adverse Reactions: Allergies Allergy/AdvReac Type Severity Reaction Status Date / Time buspirone [From BuSpar] Allergy Unknown Verified 06/23/17 13:22 Reaction Details Horse/Equine Containing Allergy Unknown Verified 06/23/17 13:22 Products Reaction Details testosterone Allergy Unknown Verified 06/23/17 13:22 Reaction Details Home Medications: Home Medications Cephalexin CAP* [Keflex CAP*] 500 mg PO BID 06/23/17 [History Confirmed 06/23/17 ] FLUoxetine CAP* [PROzac CAP*] 20 - 40 mg PO DAILY 06/23/17 [History Confirmed ] Montelukast Sodium TAB* [Singulair TAB*] 10 mg PO DAILY 06/23/17 [History Confirmed 06/23/17] Morphine Sulfate 15 mg PO Q6H PRN MDD 4 tablets 06/23/17 [History Confirmed ] Polyethylene Glycol 3350* [Miralax*] 17 gm PO DAILY PRN 06/23/17 [History Confirmed 06/23/17] SUMAtriptan TAB* [Imitrex TAB*] 100 mg PO DAILY PRN 06/23/17 [History Confirmed 06/23/17] Testosterone Cypionate [Depo-Testosterone] 0.5 ml IM .EVERYTHREEWEEKS 06/23/17 [ History Confirmed 06/23/17] Triamterene/HCTZ 37.5-25 MG* [Dyazide CAP*] 1 cap PO DAILY 06/23/17 [History Confirmed 06/23/17] Warfarin TAB(*) [Coumadin TAB(*)] 7.5 mg PO EVERY OTHER DAY 06/23/17 [History Confirmed 06/23/17] Warfarin TAB(*) [Coumadin TAB(*)] 10 mg PO EVERY OTHER DAY 06/23/17 [History Confirmed 06/23/17] rOPINIRole TAB* [Requip TAB*] 1 mg PO BID 06/23/17 [History Confirmed 06/23/17] PMH/Surg Hx/FS Hx/Imm Hx Endocrine/Hematology History: Reports: Hx Anemia - IRON TABLET Denies: Hx Diabetes, Hx Thyroid Disease Cardiovascular History: Reports: Other Cardiovascular Problems/Disorders - DVT 2012-LEFT LEG Denies: Hx Angina, Hx Congestive Heart Failure, Hx Coronary Artery Disease, Hx Deep Vein Thrombosis, Hx Hypercholesterolemia, Hx Hypertension, Hx Myocardial Infarction, Hx Pacemaker/ICD, Hx Valvular Heart Disease Respiratory History: Reports: Hx Asthma - "slight" Denies: Hx Chronic Obstructive Pulmonary Disease (COPD), Hx Lung Cancer GI History: Reports: Hx Gastroesophageal Reflux Disease - CONTROL WITH MEDS, Hx Irritable Bowel - POSSIBLE PER PATIENT, Other GI Disorders - HX BEZOAR 1 YEAR AGO. also slow peristalsis Denies: Hx Gall Bladder Disease, Hx Gastrointestinal Bleed, Hx Ulcer, Hx Urosepsis History: Denies: Hx Kidney Stones, Hx Renal Disease Musculoskeletal History: Reports: Hx Scoliosis, Other Musculoskeletal History - spinal stenosis, and extreme restless leg syndrome Sensory History: Reports: Hx Contacts or Glasses - GLASSES Denies: Hx Hearing Aid Opthamlomology History: Reports: Hx Contacts or Glasses - GLASSES Neurological History: Reports: Hx Headaches - SOMETIMES DAILY, MAYBE SIDE EFFECT OF MEDICATION, Hx Migraine - LAST ONE WAS 12/7 - USUALLY 2 TIMES A WEEK Denies: Hx Dementia, Hx Seizures, Hx Transient Ischemic Attacks (TIA) Comment Only: Other Neuro Impairments/Disorders - DYSTHIMIA Psychiatric History: Reports: Hx Depression - CONTROL WITH MED Denies: Hx Anxiety, Hx Panic Disorder, Hx Schizophrenia, Hx Bipolar Disorder - Surgical History Surgery Procedure, Year, and Place: APPENDECTOMY, [facility]. TONSILLECTOMY A CHILD. [facility]. 2003 L4-5 LAMINECTOMY, [facility]. 1964 AND 2000'S LEFT SHOULDER SURGERY. 2011 RIGHT SHOULDER SURGERY, [facility]. 1970'S HEMORRHOIDECTOMY,. 01/23/2016 LEFT ELBOW DECOMPRESSION SURGERY, [facility] Hx Anesthesia Reactions: No - Immunization History Date of Tetanus Vaccine: Unk Date of Influenza Vaccine: Fall 2014 Infectious Disease History: No Infectious Disease History: Denies: Traveled Outside the [place] in Last 30 Days - Family History Known Family History: Negative: Renal Disease, Blood Disorder - Social History Alcohol Use: None Substance Use Type: Reports: None Smoking Status (MU): Never Smoked Tobacco Review of Systems Negative: Fever Positive: Abdominal Pain, Nausea All Other Systems Reviewed And Are Negative: Yes Physical Exam - Summary Physical Exam Summary: Appearance: Well appearing, no pain distress Skin: warm, dry, reflects adequate perfusion Head/face: normal Eyes: EOMI, CAL ENT: normal Neck: supple, non-tender Respiratory: CTA, breath sounds present Cardiovascular: RRR, pulses symmetrical Abdomen: RLQ tender, soft Bowel: present Musculoskeletal: normal, strength/ROM intact Neuro: normal, sensory motor intact, A&Ox3 Triage Information Reviewed: Yes Vital Signs On Initial Exam: Initial Vitals Temp Pulse Resp BP Pulse Ox 97.2 F 80 18 140/98 98 06/23/17 11:25 06/23/17 11:25 06/23/17 11:25 06/23/17 11:25 06/23/17 11:25 Vital Signs Reviewed: Yes Diagnostics - Vital Signs Vital Signs Temp Pulse Resp BP Pulse Ox 06/23/17 11:25 97.2 F 80 18 140/98 98 - Laboratory Lab Results: Lab Results 06/23/17 06/23/17 06/23/17 Range/Units 12:52 12:52 12:52 WBC 6.7 (3.5-10.8) 10^3/ul RBC 4.75 (4.0-5.4) 10^6/ul Hgb 14.9 (14.0-18.0) g/dl Hct 44 (42-52) % MCV 93 (80-94) fL MCH 31 (27-31) pg MCHC 34 (31-36) g/dl RDW 14 (10.5-15) % Plt Count 179 (150-450) 10^3/ul MPV 9.5 (7.4-10.4) um3 Neut % (Auto) 71.9 (38-83) % Lymph % (Auto) 13.8 L (25-47) % Mercer % (Auto) 10.7 H (0-7) % Eos % (Auto) 3.1 (0-6) % Baso % (Auto) 0.5 (0-2) % Absolute Neuts (auto) 4.8 (1.5-7.7) 10^3/ul Absolute Lymphs (auto) 0.9 L (1.0-4.8) 10^3/ul Absolute Monos (auto) 0.7 (0-0.8) 10^3/ul Absolute Eos (auto) 0.2 (0-0.6) 10^3/ul Absolute Basos (auto) 0 (0-0.2) 10^3/ul Absolute Nucleated RBC 0 10^3/ul Nucleated RBC % 0.1 INR (Anticoag Therapy) 5.28 H* (0.77-1.02) APTT 53.0 H (26.0-36.3) seconds Sodium 128 L (133-145) mmol/L Potassium 4.0 (3.5-5.0) mmol/L Chloride 93 L (101-111) mmol/L Carbon Dioxide 31 (22-32) mmol/L Anion Gap 4 (2-11) mmol/L BUN 21 (6-24) mg/dL Creatinine 1.16 (0.67-1.17) mg/dL Est GFR ( Amer) 79.2 (>60) Est GFR (Non-Af Amer) 61.5 (>60) BUN/Creatinine Ratio 18.1 (8-20) Glucose 102 H (70-100) mg/dL Lactic Acid (0.5-2.0) mmol/L Calcium 9.7 (8.6-10.3) mg/dL Total Bilirubin 0.50 (0.2-1.0) mg/dL AST 18 (13-39) U/L ALT 17 (7-52) U/L Alkaline Phosphatase 75 (34-104) U/L Troponin I 0.00 (<0.04) ng/mL C-Reactive Protein 4.04 (< 5.00) mg/L Total Protein 6.5 (6.4-8.9) g/dL Albumin 4.1 (3.2-5.2) g/dL Globulin 2.4 (2-4) g/dL Albumin/Globulin Ratio 1.7 (1-3) Lipase < 10 L (11.0-82.0) U/L 06/23/17 Range/Units 12:52 WBC (3.5-10.8) 10^3/ul RBC (4.0-5.4) 10^6/ul Hgb (14.0-18.0) g/dl Hct (42-52) % MCV (80-94) fL MCH (27-31) pg MCHC (31-36) g/dl RDW (10.5-15) % Plt Count (150-450) 10^3/ul MPV (7.4-10.4) um3 Neut % (Auto) (38-83) % Lymph % (Auto) (25-47) % Mercer % (Auto) (0-7) % Eos % (Auto) (0-6) % Baso % (Auto) (0-2) % Absolute Neuts (auto) (1.5-7.7) 10^3/ul Absolute Lymphs (auto) (1.0-4.8) 10^3/ul Absolute Monos (auto) (0-0.8) 10^3/ul Absolute Eos (auto) (0-0.6) 10^3/ul Absolute Basos (auto) (0-0.2) 10^3/ul Absolute Nucleated RBC 10^3/ul Nucleated RBC % INR (Anticoag Therapy) (0.77-1.02) APTT (26.0-36.3) seconds Sodium (133-145) mmol/L Potassium (3.5-5.0) mmol/L Chloride (101-111) mmol/L Carbon Dioxide (22-32) mmol/L Anion Gap (2-11) mmol/L BUN (6-24) mg/dL Creatinine (0.67-1.17) mg/dL Est GFR ( Amer) (>60) Est GFR (Non-Af Amer) (>60) BUN/Creatinine Ratio (8-20) Glucose (70-100) mg/dL Lactic Acid 0.9 (0.5-2.0) mmol/L Calcium (8.6-10.3) mg/dL Total Bilirubin (0.2-1.0) mg/dL AST (13-39) U/L ALT (7-52) U/L Alkaline Phosphatase (34-104) U/L Troponin I (<0.04) ng/mL C-Reactive Protein (< 5.00) mg/L Total Protein (6.4-8.9) g/dL Albumin (3.2-5.2) g/dL Globulin (2-4) g/dL Albumin/Globulin Ratio (1-3) Lipase (11.0-82.0) U/L Result Diagrams: 06/23/17 12:52 06/23/17 12:52 Lab Statement: Any lab studies that have been ordered have been reviewed, and results considered in the medical decision making process. - Radiology CXR Radiology Interpretation Completed By: Radiologist - NO ACTIVE CARDIOPULMONARY DISEASE. ED Physician has reviewed this report. - CT A/P CT Interpretation Completed By: Radiologist - 1. The midpoint small bowel is relatively dilated up to just shy of 3 cm. Though this does not represent pathologic small bowel dilatation by size criteria, it is comparatively reduced distal to this point potentially representing a partial small bowel obstruction. 2. There is a large amount of stool throughout the length of the colon with the transverse colon minimally dilated up to 7 cm in diameter. Please correlate to clinical signs and symptoms of constipation. 3. The common portal vein is dilated up to 1.6 cm in diameter which can be a finding associated with portal venous hypertension. There are no other signs of portal venous hypertension including dilated perigastric veins or splenomegaly. 4. Additional chronic, degenerative and postsurgical changes described in the body of the report. ED Physician has reviewed this report. - EKG 1240 Cardiac Rate: NL - at 67 BPM EKG Rhythm: Sinus Rhythm ST Segment: Non-Specific Re-Evaluation - Re-Evaluation 1 Re-Evaluation Time: 16:30 Comment: Discussed results with patient. Patient will be admitted. Abdominal Pain Fem Course/Dx - Course Course Of Treatment: Patient presents with sudden RLQ abdominal pain since this morning. A CXR and EKG are of no acute concern. A CT A/P is indicative of a partial SBO. Lab results reveal and INR of 5.28. Dr. España recommends patient is admitted to medicine. Dr. Carvajal agrees to admit and will speak to Dr. España. - Diagnoses Differential Diagnosis/HQI/PQRI: Bowel Obstruction, Diverticulitis, Gall Bladder Disease, Pancreatitis, Renal Colic, Ureteral Stone Provider Diagnoses: Small bowel obstruction, partial Discharge - Sign-Out/Discharge Documenting (check all that apply): Discharge - Discharge Plan Condition: Stable Disposition: ADMITTED TO [facility] - Billing Disposition and Condition Condition: STABLE Disposition: [facility]P-[facility] Consult Consult: At 16:35, Dr. España, surgeon, recommends patient be admitted to medicine. At 16:45, Dr. Carvajal, hospitalist, agrees to admit patient and states she will speak with Dr. España. The documentation as recorded by the Angélica rey Julia accurately reflects the service I personally performed and the decisions made by , Gio Muñiz.
--- NOTE | 2017-06-23 21:03 | HP ---
HISTORY AND PHYSICAL: DATE OF ADMISSION: 06/23/17 TIME OF ADMISSION: 5:30 p.m. PCP: Dr. Aponte. CHIEF COMPLAINT: Chest pain. HISTORY OF PRESENT ILLNESS: This is a 76-year-old male with history of spinal stenosis. He is presenting with left-sided abdominal pain that started this morning at 9 a.m. He says he woke between 7 and 8 a.m. and felt okay; however, after he ate breakfast, which consisted of oatmeal, blueberries and coffee, he began to have sharp left-sided lower quadrant abdominal pain without radiation that was associated with some nausea. So, he came to the emergency department. In thinking back on the past two days, he does admit to having some nausea yesterday; however, he had eaten as usual and had no emesis. He has not had any recent fevers or chills. He does note a change in the caliber of his stool. His last bowel movement was approximately one hour ago and he says it was thin like a pencil and yesterday he had had several hard bowel movements. He does have spinal stenosis for which he takes morphine chronically for. He has noticed no changes in his lower extremity strength. He denies any urinary or fecal incontinence and he has no lower extremity numbness or tingling. He also reported one brief episode of left sided chest pain that occurred at rest this morning, which also raised his concern and caused him to come to the emergency department. REVIEW OF SYSTEMS: He denies fevers, chills, weight loss, weight gain. He does complain of decreased appetite and nausea. He denies cough, shortness of breath, headache, rashes. PAST MEDICAL HISTORY: 1. Chronic pain syndrome. 2. Restless leg syndrome. 3. Spinal stenosis. 4. GERD. 5. Migraines. PAST SURGICAL HISTORY: Appendectomy many years ago. SOCIAL HISTORY: He does not smoke. He does not drink. 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 He has a roommate who was his emergency contact. Her name is Marlene Wilburn and her phone number is [phone]. PHYSICAL EXAMINATION GENERAL: Alert, well appearing man, in no distress wearing a ball cap. VITAL SIGNS: Blood pressure 142/90, heart rate 68, pulse ox 96% on room air, temperature 97.2 degrees. HEENT: Pupils are equal, round and reactive to light, no nystagmus. Mucosa moist without pharyngeal exudate or erythema. NECK: No cervical lymphadenopathy. No jugular venous pressure. LUNGS: Clear bilaterally. No wheezes, rales or rhonchi. CHEST: Regular rate and rhythm. No murmurs. PMI nondisplaced. ABDOMEN: Soft, liver is nonpalpable. He has mild tenderness to deep palpation in the right lower quadrant without rebound. He has no guarding. No CVA tenderness. No spinous process tenderness. EXTREMITIES: Strength is 5/5 in all extremities. He has trace lower extremity edema bilaterally. His sensation is intact in bilateral lower extremities. PSYCHOLOGIC: Poor short term memory. Flat affect. LABORATORY DATA: White blood cells 6.7, hemoglobin 14.9, platelets 179, INR 5.28, sodium 128, potassium 4.0, chloride 93, BUN 21, creatinine 1.16, glucose 102, lactate 0.9, LFTs are within normal limits. Lipase is less than 10. IMAGING: Abdomen and pelvis CT shows: 1. The mid point small bowel is relatively dilated up to just shy of 3 cm though this does not represent pathologic small bowel dilation by size criteria. It is comparatively reduced distal to this point potentially representing a partial small bowel obstruction. 2. There is large amount of stool throughout the length of the colon with the transverse colon minimally dilated up to 7 cm in diameter. Please correlate to clinical signs and symptoms of constipation. 3. The common portal vein is dilated up to 1.6 cm in diameter, which can be a finding associated with portal venous hypertension. No other signs of portal venous hypertension. ASSESSMENT AND PLAN: This is a 76-year-old male with a history of spinal stenosis who presents to the emergency department with right lower quadrant abdominal pain and is found to have concerns for a partial small bowel obstruction on CT scan. 1. Concern for partial small bowel obstruction on CT scan. He does have some clinical findings concerning for a partial small bowel obstruction including nausea and some abdominal pain. He does note thin hard stools since yesterday. At this point I would like to admit him for supportive care. If he develops any vomiting, he should have an NG tube placed but there is no indication for one right now. Surgery has been consulted by the emergency department. I am keeping him n.p.o. and giving him normal saline. His small bowel obstruction versus ileus may be caused by his narcotics. He does have history of abdominal surgery with an appendectomy; however, there is no evidence of adhesions leading to an small bowel obstruction on his CT scan. I do not see any other medication on his home medication list that would cause decreased GI transit. 2. Coagulopathy. He is on warfarin for his history of deep vein thrombosis. The deep vein thrombosis was last reported in our system in 2014. He is not sure why he had a deep vein thrombosis and whether it was provoked or unprovoked , so presumably the reason he is on warfarin three years later is because it was an unprovoked deep vein thrombosis. It is also likely increased in the setting of poor p.o. intake over the past day. He has no evidence of liver dysfunction, so I am holding his warfarin. He also has no evidence of bleeding. 3. Hyponatremia, likely hypovolemic. So, I am starting normal saline. 4. Spinal stenosis. He is on chronic morphine and has no evidence of spinal involvement on physical exam that could be contributing to his partial small bowel obstruction. 5. DVT prophylaxis, supratherapeutic on therapeutic anticoagulation. 6. Disposition. Admit to hospitalist service, n.p.o. and full code. [id number]/[facility] #: [id number] [facility]ENTERUnruly
[2017-06-23] MEDS: Morphine INJ* 2 MG/ML 1 ML CARPUJECT IV PRN (21:35)
[2017-06-24] MEDS: Morphine INJ* 2 MG/ML 1 ML CARPUJECT IV PRN ×3 (03:14→23:09)
[2017-06-24 04:34] LABS: Urine Appearance Clear; Urine Blood Negative (Negative); Urine Color Yellow; Urine Ketones Negative (Negative); Urine Protein Negative (Negative); Urine Specific Gravity 1.012 (1.010-1.030); Urine Urobilinogen Negative (Negative)
[2017-06-24 06:53] LABS: ABS Basophils 0 10^3/ul (0-0.2); ABS Eosinophils 0.3 10^3/ul (0-0.6); ABS Lymphocytes 0.9 10^3/ul (1.0-4.8); ABS Monocytes 0.6 10^3/ul (0-0.8); ABS Neutrophils 3.9 10^3/ul (1.5-7.7); ABS Nucleated RBC 0 10^3/ul; Eosinophil % 5.1 % (0-6); Hematocrit 43 % (42-52); Hemoglobin 14.8 g/dl (14.0-18.0); Lymphocyte % 15.7 % (25-47); Mean Corpuscular HGB Conc 35 g/dl (31-36); Mean Corpuscular Hemoglobin 32 pg (27-31); Mean Corpuscular Volume 92 fL (80-94); Mean Platelet Volume 9.5 um3 (7.4-10.4); Nucleated Red Blood Cells % 0; Platelet Count 155 10^3/ul (150-450); Red Blood Count 4.62 10^6/ul (4.0-5.4); Red Cell Distribution Width 14 % (10.5-15); White Blood Count 5.7 10^3/ul (3.5-10.8)
[2017-06-24 07:11] LABS: EGFR Non-African American 72.2 (>60)
[2017-06-24 07:31] LABS: INR 5.14 (0.77-1.02)
[2017-06-24] MEDS ORDERED: Polyethylene Glycol 3350* 17 GM PACKET PO PRN (10:01)
[2017-06-24] MEDS ORDERED: Morphine ORAL.SOLN 10 mg* 2 MG/ML UDC 5 ml PO PRN (10:01)
[2017-06-24] MEDS: Ondansetron INJ* 2 MG/ML VIAL IV PRN ×2 (10:59→18:14)
[2017-06-24] MEDS: Cephalexin CAP* 500 MG PO SCH ×2 (11:00→20:17)
[2017-06-24] MEDS: Montelukast Sodium TAB* 10 MG PO SCH (11:00)
[2017-06-24] MEDS: Triamterene/HCTZ 37.5-25 MG* CAP PO SCH (11:00)
[2017-06-24] MEDS: FLUoxetine CAP* 20 MG PO SCH (11:00)
[2017-06-24] MEDS: Acetaminophen TAB* 325 MG PO PRN (11:01)
[2017-06-24] MEDS ORDERED: Methylnaltrexone SQ (NF) 12 MG/0.6 ML VIAL SUBCUT ONE (11:03)
[2017-06-24] MEDS ORDERED: METHYLNALTREXONE 12 MG/0.6 ML SUBCUT ONE (11:30)
[2017-06-24] MEDS: SUMAtriptan TAB* 100 MG PO PRN (12:18)
[2017-06-24] MEDS: NS 0.9% 1000 ML* 1,000 ML IV SCH (12:18)
--- NOTE | 2017-06-24 13:06 | PN ---
Subjective Date of Service: 06/24/17 Interval History: Patient seen and examined. Was nauseous this AM, now resolved. No vomiting, states abdominal pain is tolerable and improving. Also states he feels a migraine coming on. Denies fever or chills. Had BM this am mixed watery and some formed stool per RN. Described stool as pencil thin at home, still feels somewhat constipated. Denies fever or chills, no SOB, no chest pain. Per RN, patient requested psychiatric consultation, states he feels his depression is getting worse and is concerned. Objective Active Medications: Acetaminophen (Tylenol Tab*) 650 mg PO Q6H PRN PRN Reason: FEVER/HEADACHE Last Admin: 06/24/17 11:01 Dose: 650 mg Cephalexin HCl (Keflex Cap*) 500 mg PO BID [facility] Last Admin: 06/24/17 11:00 Dose: 500 mg Fluoxetine HCl (Prozac Cap*) 20 mg PO DAILY [facility] Last Admin: 06/24/17 11:00 Dose: 20 mg Sodium Chloride (Ns 0.9% 1000 Ml*) 1,000 mls @ 100 mls/hr IV PER RATE [facility] Last Admin: 06/24/17 12:18 Dose: 100 mls/hr Montelukast Sodium (Singulair Tab*) 10 mg PO DAILY [facility] Last Admin: 06/24/17 11:00 Dose: 10 mg Morphine Sulfate (Morphine Inj (Syringe)*) 2 mg IV Q4H PRN PRN Reason: PAIN Last Admin: 06/24/17 03:14 Dose: 2 mg Morphine Sulfate (Morphine Oral.Soln 10 Mg*) 15 mg PO Q6H PRN PRN Reason: PAIN Ondansetron HCl (Zofran Inj*) 4 mg IV Q4H PRN PRN Reason: NAUSEA Last Admin: 06/24/17 10:59 Dose: 4 mg Polyethylene Glycol/Electrolytes (Miralax*) 17 gm PO DAILY PRN PRN Reason: CONSTIPATION Ropinirole HCl (Requip Tab*) 1 mg PO BID [facility] Sumatriptan Succinate (Imitrex Tab*) 100 mg PO DAILY PRN PRN Reason: HEADACHE Last Admin: 06/24/17 12:18 Dose: 100 mg Triamterene/HCTZ (Dyazide Cap*) 1 cap PO DAILY [facility] Last Admin: 03/27/18 11:00 Dose: 1 cap Oxygen Devices in Use Now: None Appearance: Alert, NAD, well appearing Eyes: No Scleral Icterus, PERRLA Ears/Nose/Mouth/Throat: NL Teeth, Lips, Gums, Mucous Membranes Moist Neck: NL Appearance and Movements; NL JVP, Trachea Midline Respiratory: Symmetrical Chest Expansion and Respiratory Effort, Clear to Auscultation Cardiovascular: NL Sounds; No Murmurs; No JVD, RRR, No Edema Abdominal: - - tender RLQ and LLQ, hyperactive BS noted Extremities: No Edema, No Clubbing, Cyanosis Skin: No Rash or Ulcers Neurological: Alert and Oriented x 3, NL Gait Nutrition: - - NPO since admission Result Diagrams: 06/24/17 06:37 06/24/17 06:37 Additional Lab and Data: Lab Results 06/23/17 06/23/17 06/23/17 Range/Units 12:52 12:52 12:52 WBC 6.7 (3.5-10.8) 10^3/ul RBC 4.75 (4.0-5.4) 10^6/ul Hgb 14.9 (14.0-18.0) g/dl Hct 44 (42-52) % MCV 93 (80-94) fL MCH 31 (27-31) pg MCHC 34 (31-36) g/dl RDW 14 (10.5-15) % Plt Count 179 (150-450) 10^3/ul MPV 9.5 (7.4-10.4) um3 Neut % (Auto) 71.9 (38-83) % Lymph % (Auto) 13.8 L (25-47) % [place] % (Auto) 10.7 H (0-7) % Eos % (Auto) 3.1 (0-6) % Baso % (Auto) 0.5 (0-2) % Absolute Neuts (auto) 4.8 (1.5-7.7) 10^3/ul Absolute Lymphs (auto) 0.9 L (1.0-4.8) 10^3/ul Absolute Monos (auto) 0.7 (0-0.8) 10^3/ul Absolute Eos (auto) 0.2 (0-0.6) 10^3/ul Absolute Basos (auto) 0 (0-0.2) 10^3/ul Absolute Nucleated RBC 0 10^3/ul Nucleated RBC % 0.1 INR (Anticoag Therapy) 5.28 H* (0.77-1.02) APTT 53.0 H (26.0-36.3) seconds Sodium 128 L (133-145) mmol/L Potassium 4.0 (3.5-5.0) mmol/L Chloride 93 L (101-111) mmol/L Carbon Dioxide 31 (22-32) mmol/L Anion Gap 4 (2-11) mmol/L BUN 21 (6-24) mg/dL Creatinine 1.16 (0.67-1.17) mg/dL Est GFR ( Amer) 79.2 (>60) Est GFR (Non-Af Amer) 61.5 (>60) BUN/Creatinine Ratio 18.1 (8-20) Glucose 102 H (70-100) mg/dL Lactic Acid (0.5-2.0) mmol/L Calcium 9.7 (8.6-10.3) mg/dL Total Bilirubin 0.50 (0.2-1.0) mg/dL AST 18 (13-39) U/L ALT 17 (7-52) U/L Alkaline Phosphatase 75 (34-104) U/L Troponin I 0.00 (<0.04) ng/mL C-Reactive Protein 4.04 (< 5.00) mg/L Total Protein 6.5 (6.4-8.9) g/dL Albumin 4.1 (3.2-5.2) g/dL Globulin 2.4 (2-4) g/dL Albumin/Globulin Ratio 1.7 (1-3) Lipase < 10 L (11.0-82.0) U/L 06/23/17 Range/Units 12:52 WBC (3.5-10.8) 10^3/ul RBC (4.0-5.4) 10^6/ul Hgb (14.0-18.0) g/dl Hct (42-52) % MCV (80-94) fL MCH (27-31) pg MCHC (31-36) g/dl RDW (10.5-15) % Plt Count (150-450) 10^3/ul MPV (7.4-10.4) um3 Neut % (Auto) (38-83) % Lymph % (Auto) (25-47) % [place] % (Auto) (0-7) % Eos % (Auto) (0-6) % Baso % (Auto) (0-2) % Absolute Neuts (auto) (1.5-7.7) 10^3/ul Absolute Lymphs (auto) (1.0-4.8) 10^3/ul Absolute Monos (auto) (0-0.8) 10^3/ul Absolute Eos (auto) (0-0.6) 10^3/ul Absolute Basos (auto) (0-0.2) 10^3/ul Absolute Nucleated RBC 10^3/ul Nucleated RBC % INR (Anticoag Therapy) (0.77-1.02) APTT (26.0-36.3) seconds Sodium (133-145) mmol/L Potassium (3.5-5.0) mmol/L Chloride (101-111) mmol/L Carbon Dioxide (22-32) mmol/L Anion Gap (2-11) mmol/L BUN (6-24) mg/dL Creatinine (0.67-1.17) mg/dL Est GFR ( Amer) (>60) Est GFR (Non-Af Amer) (>60) BUN/Creatinine Ratio (8-20) Glucose (70-100) mg/dL Lactic Acid 0.9 (0.5-2.0) mmol/L Calcium (8.6-10.3) mg/dL Total Bilirubin (0.2-1.0) mg/dL AST (13-39) U/L ALT (7-52) U/L Alkaline Phosphatase (34-104) U/L Troponin I (<0.04) ng/mL C-Reactive Protein (< 5.00) mg/L Total Protein (6.4-8.9) g/dL Albumin (3.2-5.2) g/dL Globulin (2-4) g/dL Albumin/Globulin Ratio (1-3) Lipase (11.0-82.0) U/L Diagnostic Imaging: Patient Name: COLLETTE NOLAND Medical Record#: [id number] Ordering Physician: Gio Muñiz MD Acct.#: [id number] : 1940 Age: 76 Sex: M Location: EMERGENCY DEPARTMENT Exam Date: 06/23/17 1226 ADM Status: REG ER Order Information: CT ABD/PEL W Accession Number: [id number] CPT: 99896 CLINICAL HISTORY: Right lower quadrant pain. Relevant surgical history includes appendectomy. COMPARISON: Most recent comparison CT of the abdomen and pelvis is dated August TECHNIQUE: Contrast enhanced CT examination of the abdomen and pelvis from the lung bases through the initial tuberosities. The patient received 100 mL Omnipaque 350 intravenously prior to imaging.The patient received oral contrast as well prior to imaging. FINDINGS: VISUALIZED LUNG BASES: The visualized lung bases are grossly clear. There is no pleural effusion. ABDOMEN AND PELVIS: The liver, spleen, pancreas and adrenal glands are grossly normal in appearance. 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 The gallbladder is normal. The kidneys are normal in appearance without focal mass, calcification or signs of hydronephrosis. The oral contrast has progressed as far as the distal small bowel which limits evaluation of the terminal ileum and colon. At the low right of midline small bowel there is minimal dilatation of the small bowel up to just shy of 3 cm in diameter (coronal image 46). Distal to this there is relative reduction in the luminal diameter of the small bowel.. Consistent with the patient's surgical history, the appendix is not seen. The colon is largely stool-filled. The transverse colon measures 7 cm in diameter. There is no definite wall thickening or focal inflammatory change. There is no gross retroperitoneal or mesenteric lymphadenopathy. The pelvic viscera is normal in appearance. The abdominal aorta and iliac arteries are normal in course and diameter. Degenerative changes include multilevel loss of intervertebral disc height involving the lower thoracic and lumbar spine.There are no sinister bone lesions. IMPRESSION: 1. The midpoint small bowel is relatively dilated up to just shy of 3 cm. Though this does not represent pathologic small bowel dilatation by size criteria, it is comparatively reduced distal to this point potentially representing a partial small bowel obstruction. 2. There is a large amount of stool throughout the length of the colon with the transverse colon minimally dilated up to 7 cm in diameter. Please correlate to clinical signs and symptoms of constipation. 3. The common portal vein is dilated up to 1.6 cm in diameter which can be a finding associated with portal venous hypertension. There are no other signs of portal venous hypertension including dilated perigastric veins or splenomegaly. 4. Additional chronic, degenerative and postsurgical changes described in the body of the report. 1 of 2 Assess/Plan/Problems-Billing Assessment: This is a 76 year old male patient with hx of chronic back pain/spinal stenosis , GERD and previous abdominal surgery that presents with abdominal pain, obstipation, supratherapeutic INR and hyponatremia. - Patient Problems (1) Abdominal pain Code(s): R10.9 - UNSPECIFIED ABDOMINAL PAIN SNOMED Code(s): 68480583 Comment: - Per notes, CT abdomen was reviewed by surgery while in ER and feels it does not represent partial SBO - No n/v, no need for NG tube and pain is improving - Will trial clears - Recommend outpatient colonoscopy to ensure no masses given current symptoms (2) Constipation due to pain medication therapy Code(s): K59.03 - DRUG INDUCED CONSTIPATION SNOMED Code(s): 44902673 Comment: - Will trial one dose of relistor and see if this pain is a result of narcotic induced constipation, as CT did show large amount of stool - If relistor helps, would recommend follow up with PCP for intiating movantik as an outpatient and scheduling outpatient colonoscopy (3) Supratherapeutic INR Code(s): R79.1 - ABNORMAL COAGULATION PROFILE SNOMED Code(s): 901579899 Comment: - INR remains at 5.14 today, hold coumadin for another day and recheck INR in AM - No obvious signs of bleeding (4) Depression Code(s): F32.9 - MAJOR DEPRESSIVE DISORDER, SINGLE EPISODE, UNSPECIFIED SNOMED Code(s): 72104367 Comment: - On fluoxatine - Patient requested psych eval, feels his mood is declining - Consulted psychiatry (5) Chronic pain Code(s): G89.29 - OTHER CHRONIC PAIN SNOMED Code(s): 51257306 Comment: - 2/2 spinal stenosis - Continue home morphine dose - Discussed resulting constipation and chronic opioid use at length with patient (6) Migraines Code(s): G43.909 - MIGRAINE, UNSP, NOT INTRACTABLE, WITHOUT STATUS MIGRAINOSUS SNOMED Code(s): 56115493 Comment: - Sumatriptan as needed (7) Spinal stenosis Code(s): M48.00 - SPINAL STENOSIS, SITE UNSPECIFIED SNOMED Code(s): 45655142 Comment: - Continue PO morphine as needed (8) Restless leg syndrome Comment: - Continue requip (9) Hypertension Code(s): I10 - ESSENTIAL (PRIMARY) HYPERTENSION SNOMED Code(s): 01519980 Comment: - Continue home BP meds (10) DVT prophylaxis Code(s): NFV2119 - SNOMED Code(s): 254136245 Comment: - On coumadin with high INR (11) Full code status Code(s): Z78.9 - OTHER SPECIFIED HEALTH STATUS SNOMED Code(s): 503518583 Status and Disposition: Remain inpatient Counseling and/or Coordination of Care Minutes: coordinated with staff and RN.
[2017-06-24] MEDS: ALPRAZolam TAB* 0.25 MG PO PRN (15:54)
--- NOTE | 2017-06-24 16:32 | CONS ---
CC: Hospitalist * CONSULTATION NOTE: DATE OF CONSULTATION: 06/24/17 SUPERVISING PHYSICIAN: Dean Moreno MD. JUSTIFICATION FOR CONSULT: The patient requests a psychiatric consult. CHIEF COMPLAINT: "I am quite bummed and have been for a couple of days." HISTORY OF PRESENT ILLNESS: The patient is a 76-year-old man who is single, who lives with a roommate, and he has a history of mild depression. He is found in room 414-2, reclining in bed. He is here due to a bowel obstruction. Chetan is not thinking of suicide. 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 He states that he is forgetting huge amounts of information, but when pursued about that, it appears that it is most like things like "I can't find my keys and what appointment did I have today." He also complaints of having a "odd throat for quite a while, it is granular, a prolonged cough." He is stressed by aging it appears. He is also stressed by this physical problem of having a bowel obstruction which is the problem he is being treated for here. His symptoms include decreased energy, some psychomotor retardation, a little bit of worry about memory and cognitive deficits, but he does not meet criteria for major depressive disorder or generalized anxiety disorder. In fact, he does not talk about anxiety at all other than being worried about his memory and his bowels. PAST PSYCHIATRIC HISTORY: He states that he was on an antidepressant which was Prozac. He said he was switched to something else, but he does not know what it is. Nevertheless, it appears to be Prozac 20 mg daily. He states he has tried it several times in the past. He thinks that he restarted Prozac and a month and a half ago, but he states it could be as recently as a couple of weeks. PAST MEDICAL HISTORY: He has spinal stenosis. He has chronic pain, restless leg syndrome, GERD, migraine, hypertension, and depression. MEDICATIONS: He takes morphine for spinal stenosis. Dr. Aponte is his primary care physician. He takes testosterone injections which are prescribed by Dr. Tucker, and he declares that his memory is poor as he forgets things very easily. FAMILY HISTORY: He states that his family is psychiatrically well. He states his dad used to use dextroamphetamine and his dad was a psychiatrist and psychoanalyst in [place]. Sometimes Chetan would borrow some of that Dexedrine and he states he quit doing that. Mom does not have a psychiatric history. SUBSTANCE ABUSE: He denies using nicotine, alcohol, or pot or any other illegal substance. SOCIAL HISTORY: He grew up in [facility]. He denies abuse. He went to [employer] for social work and he went to [employer] for graduate school. He has a roommate, it is not a sexual relationship, but she is helpful to him. 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 No history. No legal problems. REVIEW OF SYSTEMS: The patient reports feeling alert. Denies shortness of breath, heat or cold intolerance, chest pain, or abdominal pain. Denies neurological symptoms. Denies fevers or changes in weight. MENTAL STATUS EXAM: He grooming is adequate, he is wearing a baseball cap. He appears to have some psycho-motor retardation. His eye contact is good. He is calm and cooperative. His speech is normal rate and tone. His volume is slightly low. He appears to be dysthymic. He has a full affect. Thought processes are clear. The rate is potentially a little slowed. He has clear thought content. He is not suicidal, not homicidal. He is not experiencing any hallucinations. His insight is fair. His judgment is good. He is alert and awake x3. He has average to high intelligence given his academic background. RECOMMENDATIONS: It would be helpful to Chetan to try a trial of Wellbutrin XL 150 mg in addition to the Prozac that he is already taking. It may also be helpful to increase the Prozac up to 40 mg. These can be done in tandem. Thank you for this interesting consult. SHYLA FRANKLIN, OLIVERIO [id number]/[facility] #: [id number] DELON
[2017-06-24] MEDS: rOPINIRole TAB* 1 MG PO SCH (16:48)
[2017-06-24] MEDS ORDERED: PROCHLORPERAZINE INJ 5 MG/ML 2 ML VIAL IV PRN (19:38)
[2017-06-24] MEDS ORDERED: rOPINIRole TAB* 1 MG PO SCH (21:00)
[2017-06-24] MEDS ORDERED: Ropinirole TAB* 0.5 MG TAB PO ONE (21:32)
[2017-06-25] MEDS: NS 0.9% 1000 ML* 1,000 ML IV SCH (00:06)
[2017-06-25] MEDS ORDERED: CMCS: Melatonin (NF) 3 MG TAB PO PRN (00:06)
[2017-06-25] MEDS: ALPRAZolam TAB* 0.25 MG PO PRN (00:07)
[2017-06-25] MEDS: Acetaminophen TAB* 325 MG PO PRN (02:49)
[2017-06-25] MEDS: Morphine INJ* 2 MG/ML 1 ML CARPUJECT IV PRN ×2 (02:56→11:48)
[2017-06-25 06:46] LABS: INR 3.85 (0.77-1.02)
[2017-06-25] MEDS: SUMAtriptan TAB* 100 MG PO PRN (08:02)
[2017-06-25] MEDS: FLUoxetine CAP* 20 MG PO SCH (09:00)
[2017-06-25] MEDS: Triamterene/HCTZ 37.5-25 MG* CAP PO SCH (09:00)
[2017-06-25] MEDS: Cephalexin CAP* 500 MG PO SCH (09:00)
[2017-06-25] MEDS: Montelukast Sodium TAB* 10 MG PO SCH (09:01)
[2017-06-25 13:09] VITALS: BP 126/78
[2017-06-25] MEDS: rOPINIRole TAB* 1 MG PO SCH (13:53)
[2017-06-25] MEDS ORDERED: BuPROPion XL* 150 MG TAB.XL PO SCH (14:00)
--- NOTE | 2017-06-26 08:04 | DS ---
CC: Dr. Aponte * DISCHARGE SUMMARY: DATE OF ADMISSION: 06/23/17 DATE OF DISCHARGE: 06/25/17 PRIMARY CARE PROVIDER: Dr. King Aponte. ATTENDING FOR THIS ADMISSION: Dr. Teresa Carvajal. MY ATTENDING FOR TODAY: Dr. Janell Bess.* (DICTATED BY OZZIE DAVIS NP) HOSPITAL COURSE: This is a pleasant 76-year-old male patient who arrived in the emergency department with a complaint of abdominal pain and bloating. The patient states he was not able to pass gas and he had point tenderness in the right and left lower quadrants. Abdomen and pelvis were scanned by CT imaging, which showed potentially a partial small bowel obstruction. The mid point of small bowel was relatively dilated just under 3 cm. Also, there was a large amount of stool throughout the length of colon with the transverse colon also mildly dilated to 7 cm. The emergency doctor actually had a discussion with Surgery and reviewed the CAT scan. Surgery did not feel that the patient actually met criteria for a partial small-bowel obstruction; however, it was thought that he should be admitted for further monitoring in case the patient did become fully obstructed or show clinical signs of ileus. Of significant note, the patient does take chronic pain medications. 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 The patient was given aggressive hydration with normal saline, kept n.p.o. and then was advanced to clears. Today, patient states pain has just about gone. He is passing gas and has had several bowel movements. He did receive one dose of Relistor yesterday and we discussed bowel regimen with him at the point of discharge. Also of note, patient did state that he was having some ongoing depression and requested to be seen by Psychiatry. He was seen by Lilly Morgan, psychiatric behavioral unit whose consultation states that the patient does not meet criteria for major depressive disorder. He is on an antidepressant at home. However, she felt it would be warranted to add an additional medication and then have outpatient followup. The patient was not making any statements of harming himself or others. She has been very appropriate and has had no further issues. The patient was ready to be discharged today on 06/25/17. PHYSICAL EXAMINATION: Vital signs on the day of discharge, 97.5 temperature, heart rate 63, respiratory rate 18, satting at 98% on room air, blood pressure is 126/78. HEENT: The patient is atraumatic, normocephalic. PERRLA with nonicteric sclerae. Neck is supple, nontender. No JVD noted. No thyromegaly appreciated. Cardiovascular: S1, S2 were present. No murmurs, gallops, or rubs. Rate and rhythm are regular. Lungs are clear bilaterally to auscultation with no wheezing, rhonchi, or rales. Abdomen is soft, nontender. Positive bowel sounds in all 4 quadrants. No rebound or guarding noted. was deferred. Musculoskeletal: There is no clubbing, no cyanosis, and no edema. He has +2 distal pulses palpable. Steady gait. Neurologic: Grossly intact with no focal deficits. Psychiatric: He is cooperative and appropriate , although he does have a bit of a flat affect. LABORATORY DATA: WBC is 5.7, RBC is 4.62, hemoglobin 14.8, hematocrit 43, platelets 155. Sodium 132, potassium 4.0, chloride 99, CO2 27, BUN 13, creatinine 1.01, GFR 72.2, glucose 88, lactic acid 0.9, calcium 9.1. DISCHARGE DIAGNOSES: 1. Abdominal pain likely related to constipation, not likely a small bowel obstruction. 2. Migraine headache. 3. Nausea and vomiting, now resolved. 4. History of depression. 5. History of deep venous thrombosis in the past with supratherapeutic INR. 6. Chronic pain secondary to spinal stenosis. 7. Restless leg syndrome. 8. Hypertension. DISCHARGE MEDICATIONS: Include: 1. Tylenol 650 mg q. 6 hours as needed. 2. Xanax 0.25 mg q. 8 hours as needed. 3. Bupropion/hydrochloride XL 150 mg daily. 4. Keflex 500 mg 2 times a day. 5. Fluoxetine 20 mg daily. 6. Singulair 10 mg daily. 7. Morphine oral solution 15 mg q. 6 hours as needed. 8. MiraLax 17 g daily. 9. Ropinirole 1 mg daily at 3 o'clock. 10. Imitrex 100 mg daily as needed. 11. Dyazide one capsule daily. 12. Warfarin 2.5 mg daily, although this is on hold until Friday. 13. Testosterone cypionate 0.5 mL IM every 3 weeks. FOLLOWUP: This patient was instructed to followup with Dr. King Aponte this week and further clarify his dose of Coumadin. His INR was supratherapeutic while here. INR today is 3.85, but was 5.28 at admission. His Coumadin has been held for the duration of this admission. We suggest holding the Coumadin at least until Friday, then restarting and having his INR tested on the when he goes to see his primary care provider. It would also be warranted for patient to seek outpatient psychotherapy services as needed for his depression and also for monitoring of his current medication changes. Patient was discharged in stable condition on 06/25/17. Diet: Recommended soft diet and continued bowel regimen. The patient was also instructed to return to the emergency department or call his primary care physician if his abdominal pain increases again or he has any concurrent nausea and vomiting with abdominal pain which may require additional imaging at that point. OZZIE DAVIS NP [id number]/[facility] #: [id number] DELON
== END 2017-06-25 14:00 | disposition home or self-care (01) | DRG 392 ==
LOC: ED 11:17 → MED 17:46 → OBSVTOIN 06-24 09:30
PROVIDERS: ADMIT Internal Medicine; ATTEND Hospitalist
DX: K59.03 Drug induced constipation (principal); E87.1 Hypo-osmolality and hyponatremia; G43.909 Migraine, unspecified, not intractable, without status migrainosus; F32.9 Major depressive disorder, single episode, unspecified; M48.00 Spinal stenosis, site unspecified; G25.81 Restless legs syndrome; I10 Essential (primary) hypertension; R10.32 Left lower quadrant pain; G89.4 Chronic pain syndrome; K21.9 Gastro-esophageal reflux disease without esophagitis; R79.1 Abnormal coagulation profile; E86.1 Hypovolemia; Z79.01 Long term (current) use of anticoagulants; Z86.718 Personal history of other venous thrombosis and embolism
CPT/HCPCS: 36415; 71045; 74177; 80048; 80053; 81003; 83605; 83690; 84484; 85025; 85610; 85730; 86140; 93005; 99284; A9270-GY; G0378; J0780; J2270; J2405; Q9967

== ENCOUNTER 2017-06-26 15:43 | Emergency (ER) | payer MEDICARE ==
[2017-06-26] MEDS ORDERED: NS 0.9% 1000 ML* 1,000 ML IV ONE (16:57)
[2017-06-26 17:47] LABS: ABS Basophils 0 10^3/ul (0-0.2); ABS Eosinophils 0.1 10^3/ul (0-0.6); ABS Lymphocytes 0.8 10^3/ul (1.0-4.8); ABS Monocytes 0.6 10^3/ul (0-0.8); ABS Neutrophils 5.9 10^3/ul (1.5-7.7); ABS Nucleated RBC 0 10^3/ul; Eosinophil % 1.7 % (0-6); Hematocrit 42 % (42-52); Hemoglobin 14.4 g/dl (14.0-18.0); Lymphocyte % 10.4 % (25-47); Mean Corpuscular HGB Conc 35 g/dl (31-36); Mean Corpuscular Hemoglobin 32 pg (27-31); Mean Corpuscular Volume 92 fL (80-94); Mean Platelet Volume 9.7 um3 (7.4-10.4); Nucleated Red Blood Cells % 0.1; Platelet Count 169 10^3/ul (150-450); Red Blood Count 4.52 10^6/ul (4.0-5.4); Red Cell Distribution Width 14 % (10.5-15); White Blood Count 7.5 10^3/ul (3.5-10.8)
--- NOTE | 2017-06-26 17:52 | RAD ---
INDICATION: Abdominal pain COMPARISON: None TECHNIQUE: Supine and upright views of the abdomen were obtained. FINDINGS: Dilated loops of air-filled bowel measure up to 9.2 cm in diameter overlying the left abdomen. There is a large amount of stool overlying the cecum. There is no definite free intraperitoneal air. There is a paucity of gas overlying the distal colon and rectum. The rectum appears to be stool filled measuring 10 cm in diameter. IMPRESSION: In the correct clinical setting radiographic findings could be compatible with rectal fecal impaction with subsequent colonic dilatation up to 9.2 cm in diameter. There is no evidence of free air.
[2017-06-26 17:55] LABS: INR 3.77 (0.77-1.02)
[2017-06-26 18:02] LABS: EGFR Non-African American 71.4 (>60)
[2017-06-26] MEDS ORDERED: Magnesium CITRATE* 300 ML BTL PO ONE (18:09)
--- NOTE | 2017-06-26 18:36 | ED ---
Wing Flaherty Stephanie, scribed for Lele Roman MD on 06/26/17 at 1657 . Abdominal Pain/Male - HPI Summary HPI Summary: The pt is a 76 y/o M presenting to the ED with c/o RLQ pain that began at 14: 30. The pt was discharged from [facility] yesterday for the same chief complaint. He states that he felt fine last night at home after he was discharged. Symptoms include diarrhea that occurred yesterday prior to discharge from hospital and nausea. The abd pain is described as an intermittent stabbing pain and is rated as a 6 in severity. The pt denies fever and chills. Aggravating factors include standing up straight. - History of Current Complaint Chief Complaint: EDAbdPain Stated Complaint: ABD PAIN Time Seen by Provider: 06/26/17 16:37 Hx Obtained From: Patient Onset/Duration: Sudden Onset, Lasting Hours - 2, Still Present Timing: Intermittent Severity Currently: Moderate Pain Intensity: 6 Pain Scale Used: 0-10 Numeric Location: Discrete At: RLQ Radiates: No Character: Sharp Aggravating Factor(s): Other: - standing up straight Alleviating Factor(s): Nothing Associated Signs And Symptoms: Positive: Nausea, Diarrhea, Other - Negative: chills. Negative: Fever - Allergies/Home Medications Allergies/Adverse Reactions: Allergies Allergy/AdvReac Type Severity Reaction Status Date / Time buspirone [From BuSpar] Allergy Unknown Verified 06/26/17 17:43 Reaction Details Horse/Equine Containing Allergy Unknown Verified 06/26/17 17:43 Products Reaction Details testosterone Allergy Unknown Verified 06/26/17 17:43 Reaction Details PMH/Surg Hx/FS Hx/Imm Hx Endocrine/Hematology History: Reports: Hx Anemia - IRON TABLET Denies: Hx Diabetes, Hx Thyroid Disease Cardiovascular History: Reports: Other Cardiovascular Problems/Disorders - DVT 2013-LEFT LEG Denies: Hx Angina, Hx Congestive Heart Failure, Hx Coronary Artery Disease, Hx Deep Vein Thrombosis, Hx Hypercholesterolemia, Hx Hypertension, Hx Myocardial Infarction, Hx Pacemaker/ICD, Hx Valvular Heart Disease Respiratory History: Reports: Hx Asthma - "slight" Denies: Hx Chronic Obstructive Pulmonary Disease (COPD), Hx Lung Cancer GI History: Reports: Hx Gastroesophageal Reflux Disease - CONTROL WITH MEDS, Hx Irritable Bowel - POSSIBLE PER PATIENT, Other GI Disorders - HX BEZOAR 1 YEAR AGO. also slow peristalsis Denies: Hx Gall Bladder Disease, Hx Gastrointestinal Bleed, Hx Ulcer, Hx Urosepsis History: Denies: Hx Kidney Stones, Hx Renal Disease Musculoskeletal History: Reports: Hx Scoliosis, Other Musculoskeletal History - spinal stenosis, and extreme restless leg syndrome Sensory History: Reports: Hx Contacts or Glasses - GLASSES Denies: Hx Hearing Aid Opthamlomology History: Reports: Hx Contacts or Glasses - GLASSES Neurological History: Reports: Hx Headaches - SOMETIMES DAILY, MAYBE SIDE EFFECT OF MEDICATION, Hx Migraine - LAST ONE WAS 03/06 - USUALLY 2 TIMES A WEEK Denies: Hx Dementia, Hx Seizures, Hx Transient Ischemic Attacks (TIA) Comment Only: Other Neuro Impairments/Disorders - DYSTHIMIA Psychiatric History: Reports: Hx Depression - CONTROL WITH MED Denies: Hx Anxiety, Hx Panic Disorder, Hx Schizophrenia, Hx Bipolar Disorder - Surgical History Surgery Procedure, Year, and Place: APPENDECTOMY, [facility]. TONSILLECTOMY A CHILD. JAW SURGERY. 2003 L4-5 LAMINECTOMY, [facility] [place]. 1964 AND LEFT SHOULDER SURGERY. 2011 RIGHT SHOULDER SURGERY, [facility]. HEMORRHOIDECTOMY,. 01/23/2016 LEFT ELBOW DECOMPRESSION SURGERY, [facility] Hx Anesthesia Reactions: No - Immunization History Date of Tetanus Vaccine: Unk Date of Influenza Vaccine: Fall 2014 Infectious Disease History: No Infectious Disease History: Denies: Traveled Outside the [place] in Last 30 Days - Family History Known Family History: Negative: Renal Disease, Blood Disorder - Social History Occupation: Retired Lives: Alone Alcohol Use: None Hx Substance Use: No Substance Use Type: Reports: None Hx Tobacco Use: No Smoking Status (MU): Never Smoked Tobacco Have You Smoked in the Last Year: No Review of Systems Negative: Fever, Chills Positive: Abdominal Pain, Diarrhea, Nausea All Other Systems Reviewed And Are Negative: Yes Physical Exam - Summary Physical Exam Summary: General: well-appearing, no pain distress Skin: warm, color reflects adequate perfusion, dry Head: normal Eyes: EOMI, CAL ENT: normal Neck: supple, nontender Respiratory: CTA, breath sounds present Cardiovascular: RRR Abdomen: soft, mild tenderness to palpation to RLQ and suprapubic region Bowel: positive bowel sounds Musculoskeletal: normal, strength/ROM intact Neurological: normal, sensory/motor intact, A&O x3 Psychological: affect/mood appropriate Triage Information Reviewed: Yes Vital Signs On Initial Exam: Initial Vitals Temp Pulse Resp BP Pulse Ox 98.7 F 84 20 140/81 97 06/26/17 15:59 06/26/17 15:59 06/26/17 15:59 06/26/17 15:59 06/26/17 15:59 Vital Signs Reviewed: Yes Diagnostics - Vital Signs Vital Signs Temp Pulse Resp BP Pulse Ox 06/26/17 15:59 98.7 F 84 20 140/81 97 - Laboratory Lab Results: Lab Results 06/26/17 06/26/17 06/26/17 Range/Units 17:27 17:27 17:27 WBC (3.5-10.8) 10^3/ul RBC (4.0-5.4) 10^6/ul Hgb (14.0-18.0) g/dl Hct (42-52) % MCV (80-94) fL MCH (27-31) pg MCHC (31-36) g/dl RDW (10.5-15) % Plt Count (150-450) 10^3/ul MPV (7.4-10.4) um3 Neut % (Auto) (38-83) % Lymph % (Auto) (25-47) % [place] % (Auto) (0-7) % Eos % (Auto) (0-6) % Baso % (Auto) (0-2) % Absolute Neuts (auto) (1.5-7.7) 10^3/ul Absolute Lymphs (auto) (1.0-4.8) 10^3/ul Absolute Monos (auto) (0-0.8) 10^3/ul Absolute Eos (auto) (0-0.6) 10^3/ul Absolute Basos (auto) (0-0.2) 10^3/ul Absolute Nucleated RBC 10^3/ul Nucleated RBC % INR (Anticoag Therapy) 3.77 H (0.77-1.02) APTT 55.3 H (26.0-36.3) seconds Sodium 132 L (139-145) mmol/L Potassium 4.8 (3.5-5.0) mmol/L Chloride 97 L (101-111) mmol/L Carbon Dioxide 27 (22-32) mmol/L Anion Gap 8 (2-11) mmol/L BUN 16 (6-24) mg/dL Creatinine 1.02 (0.67-1.17) mg/dL Est GFR ( Amer) 91.8 (>60) Est GFR (Non-Af Amer) 71.4 (>60) BUN/Creatinine Ratio 15.7 (8-20) Glucose 99 (70-100) mg/dL Lactic Acid (0.5-2.0) mmol/L Calcium 9.3 (8.6-10.3) mg/dL Total Bilirubin 0.70 (0.2-1.0) mg/dL AST 25 (13-39) U/L ALT 23 (7-52) U/L Alkaline Phosphatase 71 (34-104) U/L C-Reactive Protein 2.22 (< 5.00) mg/L B-Natriuretic Peptide 19 ( - 100) pg/mL Total Protein 6.3 L (6.4-8.9) g/dL Albumin 4.1 (3.2-5.2) g/dL Globulin 2.2 (2-4) g/dL Albumin/Globulin Ratio 1.9 (1-3) Lipase 75 (11.0-82.0) U/L 06/26/17 06/26/17 Range/Units 17:27 17:27 WBC 7.5 (3.5-10.8) 10^3/ul RBC 4.52 (4.0-5.4) 10^6/ul Hgb 14.4 (14.0-18.0) g/dl Hct 42 (42-52) % MCV 92 (80-94) fL MCH 32 H (27-31) pg MCHC 35 (31-36) g/dl RDW 14 (10.5-15) % Plt Count 169 (150-450) 10^3/ul MPV 9.7 (7.4-10.4) um3 Neut % (Auto) 79.3 (38-83) % Lymph % (Auto) 10.4 L (25-47) % [place] % (Auto) 8.1 H (0-7) % Eos % (Auto) 1.7 (0-6) % Baso % (Auto) 0.5 (0-2) % Absolute Neuts (auto) 5.9 (1.5-7.7) 10^3/ul Absolute Lymphs (auto) 0.8 L (1.0-4.8) 10^3/ul Absolute Monos (auto) 0.6 (0-0.8) 10^3/ul Absolute Eos (auto) 0.1 (0-0.6) 10^3/ul Absolute Basos (auto) 0 (0-0.2) 10^3/ul Absolute Nucleated RBC 0 10^3/ul Nucleated RBC % 0.1 INR (Anticoag Therapy) (0.77-1.02) APTT (26.0-36.3) seconds Sodium (139-145) mmol/L Potassium (3.5-5.0) mmol/L Chloride (101-111) mmol/L Carbon Dioxide (22-32) mmol/L Anion Gap (2-11) mmol/L BUN (6-24) mg/dL Creatinine (0.67-1.17) mg/dL Est GFR ( Amer) (>60) Est GFR (Non-Af Amer) (>60) BUN/Creatinine Ratio (8-20) Glucose (70-100) mg/dL Lactic Acid 1.5 (0.5-2.0) mmol/L Calcium (8.6-10.3) mg/dL Total Bilirubin (0.2-1.0) mg/dL AST (13-39) U/L ALT (7-52) U/L Alkaline Phosphatase (34-104) U/L C-Reactive Protein (< 5.00) mg/L B-Natriuretic Peptide ( - 100) pg/mL Total Protein (6.4-8.9) g/dL Albumin (3.2-5.2) g/dL Globulin (2-4) g/dL Albumin/Globulin Ratio (1-3) Lipase (11.0-82.0) U/L Result Diagrams: 06/26/17 17:27 06/26/17 17:27 Lab Statement: Any lab studies that have been ordered have been reviewed, and results considered in the medical decision making process. - Radiology Abdomen XRay Xray Interpretation: Positive (See Comments) Radiology Interpretation Completed By: Radiologist - In the correct clinical setting radiographic findings could be compatible with rectal fecal impaction with subsequent colonic dilatation up to 9.2 cm in diameter. There is no evidence of free air. ED physician has reviewed this report. Re-Evaluation - Re-Evaluation First Eval Re-Evaluation Time: 18:14 Change: Improved - The pt's pain has improved. ED physician offered the pt an enema. The pt declined the enema. ED physician discussed plan of discharge with the pt. The pt understands discharge instructions and agrees to discharge plan. The pt will be sent home with a bottle of magnesium citrate. Abdominal Pain Fem Course/Dx - Course Course Of Treatment: BP noted and advised to follow up with PCP. PAIN IMPROVED IN ED. DISCUSSED RESULTS WITH THE PATIENT AND RECOMMENDED AN ENEMA. PATIENT DECLINED THE ENEMA AND ASKED FOR ORAL MEDICATION. HOME WITH MAG CITRATE. F/U PMD; RETURN IF WORSE. - Diagnoses Provider Diagnoses: Elevated BP without diagnosis of hypertension, Abdominal pain, Abdominal pain, right lateral, Suprapubic abdominal pain, Constipation Discharge - Sign-Out/Discharge Documenting (check all that apply): Discharge - Discharge Plan Condition: Stable Disposition: HOME Patient Education Materials: Constipation (ED), High Fiber Diet (ED), Acute Abdominal Pain (ED) Referrals: King Aponte MD [Primary Care Provider] - Additional Instructions: FOLLOW UP WITH YOUR DOCTOR. RETURN TO THE EMERGENCY DEPARTMENT FOR ANY WORSENING OF YOUR CONDITION OR QUESTIONS OR CONCERNS. - Billing Disposition and Condition Condition: STABLE Disposition: HOME The documentation as recorded by the Wing rey Stephanie accurately reflects the service I personally performed and the decisions made by me, Lele Roman MD.
[2017-06-26 18:56] VITALS: BP 133/77
== END 2017-06-26 18:56 | disposition home or self-care (01) ==
LOC: ED 15:43
DX: R03.0 Elevated blood-pressure reading, without diagnosis of hypertension (principal); K59.00 Constipation, unspecified; R11.0 Nausea; R19.7 Diarrhea, unspecified; R10.9 Unspecified abdominal pain
CPT/HCPCS: 36415; 74019; 80053; 83605; 83690; 83880; 85025; 85610; 85730; 86140; 96360; 99282; A9270-GY

== ENCOUNTER 2018-05-18 16:18 | Inpatient (IN) | payer MEDICARE ==
[2018-05-18 17:26] LABS: Urine Appearance Cloudy; Urine Bilirubin Negative (Negative); Urine Blood Negative (Negative); Urine Color Amber; Urine Glucose Negative (Negative); Urine Ketones Negative (Negative); Urine Nitrite Negative (Negative); Urine Protein Negative (Negative); Urine Specific Gravity 1.012 (1.010-1.030); Urine Urobilinogen Negative (Negative)
[2018-05-18 18:02] LABS: ABS Basophils 0 10^3/ul (0-0.2); ABS Eosinophils 0.3 10^3/ul (0-0.6); ABS Lymphocytes 0.7 10^3/ul (1.0-4.8); ABS Monocytes 0.7 10^3/ul (0-0.8); ABS Neutrophils 3.6 10^3/ul (1.5-7.7); ABS Nucleated RBC 0 10^3/ul; Eosinophil % 5.4 %; Hematocrit 36 % (42-52); Hemoglobin 12.2 g/dl (14.0-18.0); Lymphocyte % 12.6 %; Mean Corpuscular HGB Conc 33 g/dl (31-36); Mean Corpuscular Hemoglobin 30 pg (27-31); Mean Corpuscular Volume 89 fL (80-94); Mean Platelet Volume 9.4 fL (7.4-10.4); Nucleated Red Blood Cells % 0.1; Platelet Count 173 10^3/ul (150-450); Red Cell Distribution Width 15 % (10.5-15); White Blood Count 5.4 10^3/ul (3.5-10.8)
[2018-05-18 18:10] LABS: INR 4.97 (0.77-1.02)
[2018-05-18 18:17] LABS: Albumin 3.8 g/dL (3.2-5.2); Albumin/Globulin Ratio 1.9 (1-3); BUN/Creatinine Ratio 32.1 (8-20); Calcium 8.6 mg/dL (8.6-10.3); EGFR African American 59.8 (>60); EGFR Non-African American 49.4 (>60); Magnesium 2.1 mg/dL (1.9-2.7); Phosphorus 3.3 mg/dL (2.5-5.0); Potassium 5.7 mmol/L (3.5-5.0); Total Bilirubin 0.3 mg/dL (0.2-1.0); Total Protein 5.8 g/dL (6.4-8.9)
[2018-05-18] MEDS ORDERED: Patiromer POWDER* 8.4 GM PAK PO ONE (20:18)
--- NOTE | 2018-05-18 20:18 | ED ---
Lower Extremity - HPI Summary HPI Summary: Patient sent by PCP Dr. Cabrales to ED for evaluation of bilateral foot and leg swelling and decreased blood pressure. Asians themselves unaware of what blood pressure reading was at PCP. Patient states he has a history of bilateral pedal edema, states worse today. Also complains of fatigue and decreased energy 4 days. Chronic nausea each a.m. states 4 pounds weight gain since 4 days. Denies CP, SOB, fever, cough, sore throat, abdominal pain, change in urine, change in BM. Endoscope in January 2018 for chronic nausea negative. Patient on Coumadin for history of blood clot 2 more than 5 years ago. Medical history is GERD, HTN, migraines, blood clots, chronic back pain. - History of Current Complaint Chief Complaint: EDGeneral Stated Complaint: ABD AND CHEST PAIN/BOTH LEGS SWOLLEN Time Seen by Provider: 05/18/18 16:44 Hx Obtained From: Patient, Family/Commercial Attorney Mechanism Of Injury: Unknown Onset of Pain: Days Onset/Duration: Weeks Severity Initially: Mild Severity Currently: Mild Pain Intensity: 2 Pain Scale Used: 0-10 Numeric Timing: Constant Location: Is Discrete @ Character Of Pain: Dull Associated Signs And Symptoms: Positive: Swelling Aggravating Factor(s): Standing, Ambulation, Weight Bearing - Allergies/Home Medications Allergies/Adverse Reactions: Allergies Allergy/AdvReac Type Severity Reaction Status Date / Time buspirone [From BuSpar] Allergy Unknown Verified 05/18/18 16:29 Reaction Details cat dander Allergy Hay fever Verified 05/18/18 16:29 dog dander Allergy Hay fever Verified 05/18/18 16:29 Horse/Equine Containing Allergy Hay fever Verified 05/18/18 16:29 Products testosterone Allergy Redness Verified 05/18/18 16:29 Home Medications: Home Medications LevoCETirizine TAB (NF) [Xyzal TAB (NF)] 5 mg PO QPM 05/18/18 [History Confirmed 05/18/18] Morphine Sulfate 30 mg PO TID 05/18/18 [History Confirmed 05/18/18] PMH/Surg Hx/FS Hx/Imm Hx Endocrine/Hematology History: Reports: Hx Anemia - IRON TABLET Denies: Hx Diabetes, Hx Thyroid Disease Cardiovascular History: Reports: Other Cardiovascular Problems/Disorders - DVT 2012-LEFT LEG Denies: Hx Angina, Hx Congestive Heart Failure, Hx Coronary Artery Disease, Hx Deep Vein Thrombosis, Hx Hypercholesterolemia, Hx Hypertension, Hx Myocardial Infarction, Hx Pacemaker/ICD, Hx Valvular Heart Disease Respiratory History: Reports: Hx Asthma - "slight" Denies: Hx Chronic Obstructive Pulmonary Disease (COPD), Hx Lung Cancer GI History: Reports: Hx Gastroesophageal Reflux Disease - CONTROL WITH MEDS, Hx Irritable Bowel - POSSIBLE PER PATIENT, Other GI Disorders - HX BEZOAR 1 YEAR AGO. also slow peristalsis Denies: Hx Gall Bladder Disease, Hx Gastrointestinal Bleed, Hx Ulcer, Hx Urosepsis History: Denies: Hx Kidney Stones, Hx Renal Disease Musculoskeletal History: Reports: Hx Scoliosis, Other Musculoskeletal History - spinal stenosis, and extreme restless leg syndrome Sensory History: Reports: Hx Contacts or Glasses - GLASSES Denies: Hx Hearing Aid Opthamlomology History: Reports: Hx Contacts or Glasses - GLASSES Neurological History: Reports: Hx Headaches - SOMETIMES DAILY, MAYBE SIDE EFFECT OF MEDICATION, Hx Migraine - LAST ONE WAS 03/06 - USUALLY 2 TIMES A WEEK Denies: Hx Dementia, Hx Seizures, Hx Transient Ischemic Attacks (TIA) Comment Only: Other Neuro Impairments/Disorders - DYSTHIMIA Psychiatric History: Reports: Hx Depression - CONTROL WITH MED Denies: Hx Anxiety, Hx Panic Disorder, Hx Schizophrenia, Hx Bipolar Disorder - Surgical History Surgery Procedure, Year, and Place: APPENDECTOMY, [facility]. TONSILLECTOMY A CHILD. JAW SURGERY. 2003 L4-5 LAMINECTOMY, [facility] [place]. [place] AND LEFT SHOULDER SURGERY. 2011 RIGHT SHOULDER SURGERY, [facility]. HEMORRHOIDECTOMY,. 01/23/2016 LEFT ELBOW DECOMPRESSION SURGERY, [facility] Anesthesia Reactions: No - Immunization History Date of Tetanus Vaccine: Unk Date of Influenza Vaccine: Fall 2014 Infectious Disease History: No Infectious Disease History: Denies: Traveled Outside the [place] in Last 30 Days - Family History Known Family History: Negative: Renal Disease, Blood Disorder - Social History Alcohol Use: None Hx Substance Use: No Substance Use Type: Reports: None Hx Tobacco Use: No Smoking Status (MU): Never Smoked Tobacco Have You Smoked in the Last Year: No Review of Systems Constitutional: Negative Eyes: Negative ENT: Negative Cardiovascular: Negative Respiratory: Negative Gastrointestinal: Negative Genitourinary: Negative Musculoskeletal: Negative Skin: Other Neurological: Negative Psychological: Normal All Other Systems Reviewed And Are Negative: Yes Physical Exam - Summary Physical Exam Summary: Minimal swelling and bilateral lower extremities. Nonpitting. PMS intact bilateral extremities. No erythema, ecchymosis, deformity, extra warmth noted. Triage Information Reviewed: Yes Vital Signs On Initial Exam: Initial Vitals Temp Pulse Resp BP Pulse Ox 98 F 79 20 105/57 96 05/18/18 16:22 05/18/18 16:22 05/18/18 16:22 05/18/18 16:22 05/18/18 16:22 Vital Signs Reviewed: Yes Appearance: Positive: Well-Appearing Skin: Positive: Warm Head/Face: Positive: Normal Head/Face Inspection Eyes: Positive: Normal Neck: Positive: Supple Respiratory/Lung Sounds: Positive: Clear to Auscultation Cardiovascular: Positive: Normal Abdomen Description: Positive: Nontender Musculoskeletal: Positive: Normal Neurological: Positive: Normal Psychiatric: Positive: Normal - Mobile Coma Scale Best Eye Response: 4 - Spontaneous Best Motor Response: 6 - Obeys Commands Best Verbal Response: 5 - Oriented Coma Scale Total: 15 Diagnostics - Vital Signs Vital Signs Temp Pulse Resp BP Pulse Ox 05/18/18 20:00 20 05/18/18 19:34 59 15 126/76 96 05/18/18 19:04 60 17 128/79 96 05/18/18 19:00 60 18 97 05/18/18 18:39 59 17 130/62 98 05/18/18 18:09 60 16 103/62 98 05/18/18 18:00 56 14 97 05/18/18 17:40 52 13 108/61 96 05/18/18 17:05 58 12 111/63 98 05/18/18 17:03 15 05/18/18 16:22 98 F 79 20 105/57 96 - Laboratory Lab Results: Lab Results 05/18/18 05/18/18 05/18/18 Range/Units 17:19 17:44 17:44 WBC 5.4 (3.5-10.8) 10^3/ul RBC 4.10 (4.00-5.40) 10^6/ul Hgb 12.2 L (14.0-18.0) g/dl Hct 36 L (42-52) % MCV 89 (80-94) fL MCH 30 (27-31) pg MCHC 33 (31-36) g/dl RDW 15 (10.5-15) % Plt Count 173 (150-450) 10^3/ul MPV 9.4 (7.4-10.4) fL Neut % (Auto) 67.5 % Lymph % (Auto) 12.6 % [place] % (Auto) 13.8 % Eos % (Auto) 5.4 % Baso % (Auto) 0.7 % Absolute Neuts (auto) 3.6 (1.5-7.7) 10^3/ul Absolute Lymphs (auto) 0.7 L (1.0-4.8) 10^3/ul Absolute Monos (auto) 0.7 (0-0.8) 10^3/ul Absolute Eos (auto) 0.3 (0-0.6) 10^3/ul Absolute Basos (auto) 0 (0-0.2) 10^3/ul Absolute Nucleated RBC 0 10^3/ul Nucleated RBC % 0.1 INR (Anticoag Therapy) 4.97 H (0.77-1.02) Sodium (135-145) mmol/L Potassium (3.5-5.0) mmol/L Chloride (101-111) mmol/L Carbon Dioxide (22-32) mmol/L Anion Gap (2-11) mmol/L BUN (6-24) mg/dL Creatinine (0.67-1.17) mg/dL Est GFR ( Amer) (>60) Est GFR (Non-Af Amer) (>60) BUN/Creatinine Ratio (8-20) Glucose (70-100) mg/dL Calcium (8.6-10.3) mg/dL Phosphorus (2.5-5.0) mg/dL Magnesium (1.9-2.7) mg/dL Total Bilirubin (0.2-1.0) mg/dL AST (13-39) U/L ALT (7-52) U/L Alkaline Phosphatase (34-104) U/L Troponin I (<0.04) ng/mL B-Natriuretic Peptide (<=100) pg/mL Total Protein (6.4-8.9) g/dL Albumin (3.2-5.2) g/dL Globulin (2-4) g/dL Albumin/Globulin Ratio (1-3) Urine Color [place] Urine Appearance Cloudy Urine pH 6.0 (5-9) Ur Specific [place] 1.012 (1.010-1.030) Urine Protein Negative (Negative) Urine Ketones Negative (Negative) Urine Blood Negative (Negative) Urine Nitrate Negative (Negative) Urine Bilirubin Negative (Negative) Urine Urobilinogen Negative (Negative) Ur Leukocyte Esterase Negative (Negative) Urine Glucose Negative (Negative) 05/18/18 05/18/18 Range/Units 17:44 17:44 WBC (3.5-10.8) 10^3/ul RBC (4.00-5.40) 10^6/ul Hgb (14.0-18.0) g/dl Hct (42-52) % MCV (80-94) fL MCH (27-31) pg MCHC (31-36) g/dl RDW (10.5-15) % Plt Count (150-450) 10^3/ul MPV (7.4-10.4) fL Neut % (Auto) % Lymph % (Auto) % [place] % (Auto) % Eos % (Auto) % Baso % (Auto) % Absolute Neuts (auto) (1.5-7.7) 10^3/ul Absolute Lymphs (auto) (1.0-4.8) 10^3/ul Absolute Monos (auto) (0-0.8) 10^3/ul Absolute Eos (auto) (0-0.6) 10^3/ul Absolute Basos (auto) (0-0.2) 10^3/ul Absolute Nucleated RBC 10^3/ul Nucleated RBC % INR (Anticoag Therapy) (0.77-1.02) Sodium 125 L (135-145) mmol/L Potassium 5.7 H (3.5-5.0) mmol/L Chloride 96 L (101-111) mmol/L Carbon Dioxide 27 (22-32) mmol/L Anion Gap 2 (2-11) mmol/L BUN 45 H (6-24) mg/dL Creatinine 1.40 H (0.67-1.17) mg/dL Est GFR ( Amer) 59.8 (>60) Est GFR (Non-Af Amer) 49.4 (>60) BUN/Creatinine Ratio 32.1 H (8-20) Glucose 86 (70-100) mg/dL Calcium 8.6 (8.6-10.3) mg/dL Phosphorus 3.3 (2.5-5.0) mg/dL Magnesium 2.1 (1.9-2.7) mg/dL Total Bilirubin 0.30 (0.2-1.0) mg/dL AST 19 (13-39) U/L ALT 19 (7-52) U/L Alkaline Phosphatase 62 (34-104) U/L Troponin I 0.00 (<0.04) ng/mL B-Natriuretic Peptide 32 (<=100) pg/mL Total Protein 5.8 L (6.4-8.9) g/dL Albumin 3.8 (3.2-5.2) g/dL Globulin 2.0 (2-4) g/dL Albumin/Globulin Ratio 1.9 (1-3) Urine Color Urine Appearance Urine pH (5-9) Ur Specific [place] (1.010-1.030) Urine Protein (Negative) Urine Ketones (Negative) Urine Blood (Negative) Urine Nitrate (Negative) Urine Bilirubin (Negative) Urine Urobilinogen (Negative) Ur Leukocyte Esterase (Negative) Urine Glucose (Negative) Result Diagrams: 05/18/18 17:44 05/18/18 17:44 Lab Statement: Any lab studies that have been ordered have been reviewed, and results considered in the medical decision making process. Lower Extremity Course/Dx - Course Course Of Treatment: atient sent by PCP Dr. Cabrales to ED for evaluation of bilateral foot and leg swelling and decreased blood pressure. Asians themselves unaware of what blood pressure reading was at PCP. Patient states he has a history of bilateral pedal edema, states worse today. Also complains of fatigue and decreased energy 4 days. Chronic nausea each a.m. states 4 pounds weight gain since 4 days. Denies CP, SOB, fever, cough, sore throat, abdominal pain, change in urine, change in BM. Endoscope in January 2018 for chronic nausea negative. Patient on Coumadin for history of blood clot 2 more than 5 years ago. Medical history is GERD, HTN, migraines, blood clots, chronic back pain. Physical exam:Minimal swelling and bilateral lower extremities. Nonpitting. PMS intact bilateral extremities. No erythema, ecchymosis, deformity, extra warmth noted. Vital signs within normal limits. Sodium 125. Potassium 5.7. Creatinine 1.4. Labs otherwise unremarkable. Chest x-ray unremarkable. EKG unremarkable. Admitted to hospitalist for hyponatremia, hyperkalemia,CHRISTIANO. - Diagnoses Provider Diagnoses: Edema of both lower legs due to peripheral venous insufficiency, Hyponatremia, Hyperkalemia, Acute kidney injury, Dehydration Discharge - Sign-Out/Discharge Documenting (check all that apply): Patient Departure Patient Received Moderate/Deep Sedation with Procedure: No - Discharge Plan Condition: Stable Disposition: ADMITTED TO [facility] - Billing Disposition and Condition Condition: STABLE Disposition: Admitted to [facility]
[2018-05-18] MEDS ORDERED: Heparin VIAL(*) 5000 UNITS/ML VIAL (FIVE THOUSAND) SUBCUT SCH (22:00)
[2018-05-18] MEDS ORDERED: rOPINIRole TAB* 1 MG PO SCH (22:00)
--- NOTE | 2018-05-18 22:10 | ADMNOTE ---
Subjective Date of Service: 05/18/18 Interval History: ADMISSION HISTORY AND PHYSICAL PCP: Fadi CC: confusion HPI: 77 year old man was sent to ER by his PCP office, Dr. Aponte's office, due to edema, pallor, and 10 lb weight gain. There was also some concern of h/o Garcia's esophagus, h/o GI bleed, sees Dr. Melendez. The patient denies abdominal pain, melena. He does feel weak, tired, and admits to confusion. He does not remember how he got to the ER, though his roommate drove him. He does admit to nausea, headache. He cannot give any other information. Family History: Findings - mother of parkinsons, father natural causes , 1/2 sister well Social History: Findings - single, no children, lives w/ roommate Marlene Wilburn who is HCP, non-smoker, no alcohol/drugs Past Medical History: Findings - chronic back pain, spinal stenosis, RLS, GERD, migraine, h/o depression, h/o DVT 2013, Garcia's esophagus; PSH appendectomy Review of Systems - Measurements Intake and Output: Intake and Output Last 24 Hours 05/16/18 05/17/18 05/18/18 05/19/18 06:59 06:59 06:59 06:59 Weight 96.162 kg - Review of Systems General Comments: poor historian Constitutional Symptoms: Positive: Weight Gain Dermatology: Positive: Normal HEENT: Positive: Normal Eyes: Positive: Normal Thyroid: Positive: Normal Pulmonary: Positive: Normal Cardiology: Positive: Normal Negative: Chest Pain Gastroenterology: Positive: Nausea Negative: Diarrhea, Blood in Stools, Change in Bowel Habits, Haematemesis, Melena Genital - Urinary: Positive: Normal Genitourinary - Male: Negative: Prostatism Musculoskeletal: Negative: Joint Pain Endocrinology: Positive: Normal Neurology: Positive: Headache Psychiatry: Positive: Normal Objective Active Medications: Home Meds: Cholecalciferol (Vitamin D Tab*) 2,000 units PO QAM [facility] Clonazepam (Klonopin Tab(*)) 0.5 mg PO BEDTIME [facility] Montelukast Sodium (Singulair Tab*) 10 mg PO BEDTIME [facility] Morphine Sulfate (Morphine Tab (Nf)) 30 mg PO TID [facility] Omeprazole (Prilosec Cap*) 40 mg PO BID [facility] Polyethylene Glycol/Electrolytes (Miralax*) 17 gm PO DAILY [facility] Ropinirole HCl (Requip Tab*) 1 mg PO .UP TO 6 TIMES DAILY [facility] Tizanidine HCl (Zanaflex Tab*) 4 mg PO TID [facility] Vital Signs - 8 hr 05/18/18 05/18/18 05/18/18 17:40 18:00 18:09 Temperature Pulse Rate 52 56 60 Respiratory 13 14 16 Rate Blood Pressure 108/61 103/62 (mmHg) O2 Sat by Pulse 96 97 98 Oximetry 05/18/18 05/18/18 05/18/18 18:39 19:00 19:04 Temperature Pulse Rate 59 60 60 Respiratory 17 18 17 Rate Blood Pressure 130/62 128/79 (mmHg) O2 Sat by Pulse 98 97 96 Oximetry 05/18/18 05/18/18 19:34 20:00 Temperature Pulse Rate 59 Respiratory 15 20 Rate Blood Pressure 126/76 (mmHg) O2 Sat by Pulse 96 Oximetry Oxygen Devices in Use Now: None Appearance: alert, no distress Eyes: No Scleral Icterus Ears/Nose/Mouth/Throat: NL Teeth, Lips, Gums Neck: NL Appearance and Movements; NL JVP Respiratory: Symmetrical Chest Expansion and Respiratory Effort Cardiovascular: NL Sounds; No Murmurs; No JVD, - - 1+ pitting edema bilat LE Abdominal: No Hepatosplenomegaly, - - +BS, distended, soft Lymphatic: No Cervical Adenopathy Skin: No Rash or Ulcers Neurological: Alert and Oriented x 3 Lines/Tubes/Other Access: Clean, Dry and Intact Peripheral IV Nutrition: Taking PO's Result Diagrams: 05/18/18 17:44 05/18/18 17:44 Additional Lab and Data: Laboratory Tests 05/18/18 05/18/18 05/18/18 17:19 17:44 17:44 INR (Anticoag Therapy) 4.97 H Phosphorus 3.3 Magnesium 2.1 AST 19 ALT 19 Alkaline Phosphatase 62 Troponin I 0.00 B-Natriuretic Peptide Albumin 3.8 Urine Color [place]isselle Ur Specific [place] 1.012 Urine Blood Negative 05/18/18 17:44 INR (Anticoag Therapy) Phosphorus Magnesium AST ALT Alkaline Phosphatase Troponin I B-Natriuretic Peptide 32 Albumin Urine Color Ur Specific [place] Urine Blood Diagnostic Imaging: CXR: no infiltrates, COPD Head CT: pending EKG Data: NSR, normal axis, early transition, ? lead placement Assess/Plan/Problems-Billing Assessment: 77 year old presenting w/ hyponatremia, confusion - Patient Problems (1) Hyponatremia with excess extracellular fluid volume Current Visit: Yes Status: Acute Priority: High Code(s): E87.1 - HYPO- OSMOLALITY AND HYPONATREMIA SNOMED Code(s): 01062907 Comment: -patient has confusion due to low sodium, so admission is required -volume status is mildly hypervolemic, so treatment will be fluid restriction -suspect element of SIADH, no clear cause seen, no lung lesion -will recheck BMP in AM (2) Acute kidney injury Current Visit: Yes Status: Acute Priority: Medium Code(s): N17.9 - ACUTE KIDNEY FAILURE, UNSPECIFIED SNOMED Code(s): 64139669 Comment: -Creatinine well above baseline -may be extravascularly overloaded but intravascularly depleted -will hold any offending medications, recheck in AM -checking FENa, to assess whether pre-renal or renal (3) Supratherapeutic INR Current Visit: No Status: Acute Priority: Medium Code(s): R79.1 - ABNORMAL COAGULATION PROFILE SNOMED Code(s): 201466965 Comment: - INR elevated, compliance in question - hold coumadin for one day and recheck INR in AM - No obvious signs of bleeding (4) Hypertension Current Visit: No Status: Acute Priority: Low Code(s): I10 - ESSENTIAL ( PRIMARY) HYPERTENSION SNOMED Code(s): 86655012 Comment: - BP has been mildly elevated - not currently requiring BP meds - would add norvasc if needed, should not alter sodium (5) DVT prophylaxis Current Visit: No Status: Acute Priority: Low Code(s): IEX9241 - SNOMED Code(s): 551051774 Comment: - On coumadin with high INR Status and Disposition: observation status
[2018-05-18] MEDS: Morphine ORAL.SOLN 10 mg* 2 MG/ML UDC 5 ml PO SCH (23:31)
[2018-05-18] MEDS: clonazePAM TAB(*) 0.5 MG PO SCH (23:32)
[2018-05-18] MEDS ORDERED: Ropinirole TAB* 0.5 MG TAB ONE (23:38)
[2018-05-18] MEDS: rOPINIRole TAB* 1 MG PO SCH (23:42)
[2018-05-19 06:49] LABS: ABS Basophils 0.1 10^3/ul (0-0.2); ABS Eosinophils 0.3 10^3/ul (0-0.6); ABS Lymphocytes 0.7 10^3/ul (1.0-4.8); ABS Monocytes 0.5 10^3/ul (0-0.8); ABS Neutrophils 3.5 10^3/ul (1.5-7.7); ABS Nucleated RBC 0 10^3/ul; Eosinophil % 5.1 %; Hematocrit 43 % (42-52); Hemoglobin 14.3 g/dl (14.0-18.0); Lymphocyte % 14.1 %; Mean Corpuscular HGB Conc 34 g/dl (31-36); Mean Corpuscular Hemoglobin 30 pg (27-31); Mean Corpuscular Volume 89 fL (80-94); Mean Platelet Volume 9.8 fL (7.4-10.4); Nucleated Red Blood Cells % 0; Platelet Count 187 10^3/ul (150-450); Red Cell Distribution Width 15 % (10.5-15); White Blood Count 5.1 10^3/ul (3.5-10.8)
[2018-05-19 06:56] LABS: INR 3.9 (0.77-1.02)
[2018-05-19 07:06] LABS: BUN/Creatinine Ratio 28.4 (8-20); Calcium 9.7 mg/dL (8.6-10.3); EGFR African American 74.3 (>60); EGFR Non-African American 61.4 (>60); Potassium 4.6 mmol/L (3.5-5.0)
[2018-05-19] MEDS ORDERED: Polyethylene Glycol 3350* 17 GM PACKET PO SCH (09:00)
[2018-05-19] MEDS: rOPINIRole TAB* 1 MG PO SCH ×2 (09:24→19:42)
[2018-05-19] MEDS: tiZANidine TAB* 2 MG PO SCH ×3 (09:24→19:41)
[2018-05-19] MEDS: Cholecalciferol TAB* 1000 UNITS PO SCH (09:25)
[2018-05-19] MEDS: Morphine ORAL.SOLN 10 mg* 2 MG/ML UDC 5 ml PO SCH ×3 (09:26→20:42)
[2018-05-19] MEDS: Pantoprazole TAB * 40 MG TAB PO SCH ×2 (09:26→19:41)
[2018-05-19] MEDS ORDERED: Magnesium Hydroxide LIQ* 30 ML UDC PO ONE (11:08)
[2018-05-19] MEDS: Acetaminophen TAB* 325 MG PO PRN (13:39)
[2018-05-19 14:22] LABS: Calcium 9.4 mg/dL (8.6-10.3); EGFR African American 81.5 (>60); EGFR Non-African American 67.4 (>60); Potassium 4.7 mmol/L (3.5-5.0)
[2018-05-19] MEDS: rOPINIRole TAB* 1 MG PO PRN (14:49)
[2018-05-19] MEDS ORDERED: Polyethylene Glycol 3350* 17 GM PACKET PO ONE (14:53)
[2018-05-19] MEDS: Ibuprofen TAB* 600 MG PO PRN (15:02)
--- NOTE | 2018-05-19 17:18 | PN ---
Subjective Date of Service: 05/19/18 Interval History: Mr. Carter is feeling better today. He does not remember all the events from yesterday. Feels his memory is fuzzy. He has not had problems with low sodium in the past. He does not feel as though he consume a lot of water, but feels like he typically drinks less than he should. He does report constipation - has not had a BM in 1 week. He typically suffers from constipation, but this is worse than usual. Otherwise denies CP, SOB, N/V. Family History: Unchanged from Admission Social History: Unchanged from Admission Past Medical History: Unchanged from Admission Objective Active Medications: Acetaminophen (Tylenol Tab*) 650 mg PO Q4H PRN FEVER/PAIN Cholecalciferol (Vitamin D Tab*) 2,000 units PO QAM [facility] Clonazepam (Klonopin Tab(*)) 0.5 mg PO BEDTIME [facility] Ibuprofen (Motrin Tab*) 600 mg PO Q6H PRN PAIN Montelukast Sodium (Singulair Tab*) 10 mg PO BEDTIME [facility] Morphine Sulfate (Morphine Oral.Soln 10 Mg*) 30 mg PO TID [facility] Pantoprazole Sodium (Protonix Tab*) 40 mg PO BID [facility] Polyethylene Glycol/Electrolytes (Miralax*) 17 gm PO DAILY [facility] Ropinirole HCl (Requip Tab*) 1 mg PO BID [facility] Ropinirole HCl (Requip Tab*) 1 mg PO BID PRN [facility] Tizanidine HCl (Zanaflex Tab*) 4 mg PO TID [facility] Vital Signs - 8 hr 05/19/18 05/19/18 05/19/18 09:26 11:26 13:39 Respiratory 16 16 16 Rate Oxygen Devices in Use Now: None Appearance: Elderly male sitting in bed in NAD Eyes: No Scleral Icterus Ears/Nose/Mouth/Throat: Mucous Membranes Moist Neck: NL Appearance and Movements; NL JVP, Trachea Midline Respiratory: Symmetrical Chest Expansion and Respiratory Effort, Clear to Auscultation Cardiovascular: NL Sounds; No Murmurs; No JVD, RRR Abdominal: - - Mildly distended, nontender Extremities: No Edema Skin: No Rash or Ulcers Neurological: Alert and Oriented x 3 Lines/Tubes/Other Access: Clean, Dry and Intact Peripheral IV Nutrition: Taking PO's Result Diagrams: 05/19/18 06:33 05/19/18 13:44 Assess/Plan/Problems-Billing Assessment: Mr. Carter is a 77 yo M with PMH of chronic pain, migraines, DVT, depression , and GERD; who presented to the ED with c/o confusion and was found to be hyponatremic. - Patient Problems (1) Hyponatremia with excess extracellular fluid volume Code(s): E87.1 - HYPO-OSMOLALITY AND HYPONATREMIA Comment: - Improved today; confusion also improved - Suspect element of SIADH, no clear cause - Continue fluid restriction but will increase to 1500mL/day (2) Constipation Code(s): K59.00 - CONSTIPATION, UNSPECIFIED Comment: - Unclear etiology, but appears to be chronic - Continue aggressive bowel regmien (3) Acute kidney injury Code(s): N17.9 - ACUTE KIDNEY FAILURE, UNSPECIFIED Comment: - Resolved - Likely prerenal, but FENa has not been obtained (4) Migraines Code(s): G43.909 - MIGRAINE, UNSP, NOT INTRACTABLE, WITHOUT STATUS MIGRAINOSUS Comment: - Resume sumatriptan (5) History of DVT (deep vein thrombosis) Code(s): Z86.718 - PERSONAL HISTORY OF OTHER VENOUS THROMBOSIS AND EMBOLISM Comment: - Reportedly in 2013 - Hold warfarin d/t supratherapeutic INR (6) Hypertension Code(s): I10 - ESSENTIAL (PRIMARY) HYPERTENSION Comment: - Slightly hypertensive, SBP 130-150s - Not on outpatient medication; will hold off on medication at this point (7) Restless leg syndrome Comment: - Continue Requip (8) GERD (gastroesophageal reflux disease) Code(s): K21.9 - GASTRO-ESOPHAGEAL REFLUX DISEASE WITHOUT ESOPHAGITIS Comment : - Continue pantoprazole (9) DVT prophylaxis Comment: - Resume warfarin when INR normalizes (10) Full code status Code(s): Z78.9 - OTHER SPECIFIED HEALTH STATUS Comment: Status and Disposition: Inpatient. Anticipate d/c home when medically stable. Attending: Tangela Raya
[2018-05-19 18:01] LABS: Urine Creatinine Concentration 82.94 mg/dL
[2018-05-19] MEDS: SUMAtriptan TAB* 100 MG PO PRN (18:10)
[2018-05-19] MEDS: Montelukast Sodium TAB* 10 MG PO SCH (19:41)
[2018-05-19] MEDS: clonazePAM TAB(*) 0.5 MG PO SCH (20:42)
[2018-05-19] MEDS ORDERED: ALPRAZolam TAB* 0.5 MG PO ONE (23:28)
[2018-05-20] MEDS: rOPINIRole TAB* 1 MG PO PRN (00:08)
[2018-05-20] MEDS: Ibuprofen TAB* 600 MG PO PRN ×3 (00:08→22:26)
[2018-05-20 07:27] LABS: BUN/Creatinine Ratio 26.4 (8-20); EGFR African American 70.7 (>60); EGFR Non-African American 58.5 (>60); Potassium 4.5 mmol/L (3.5-5.0)
[2018-05-20] MEDS ORDERED: Magnesium Hydroxide LIQ* 30 ML UDC PO ONE (08:27)
[2018-05-20] MEDS: Acetaminophen TAB* 325 MG PO PRN (08:47)
[2018-05-20] MEDS: Polyethylene Glycol 3350* 17 GM PACKET PO SCH (10:05)
[2018-05-20] MEDS: tiZANidine TAB* 2 MG PO SCH ×3 (10:06→20:17)
[2018-05-20] MEDS: Pantoprazole TAB * 40 MG TAB PO SCH ×2 (10:06→20:17)
[2018-05-20] MEDS: Cholecalciferol TAB* 1000 UNITS PO SCH (10:06)
[2018-05-20] MEDS: Morphine ORAL.SOLN 10 mg* 2 MG/ML UDC 5 ml PO SCH ×3 (10:06→20:16)
[2018-05-20] MEDS: rOPINIRole TAB* 1 MG PO SCH ×2 (10:06→20:17)
[2018-05-20] MEDS: Tamsulosin CAP* 0.4 MG PO SCH (11:51)
[2018-05-20] MEDS: SUMAtriptan TAB* 100 MG PO PRN (15:35)
[2018-05-20 15:56] LABS: INR 1.52 (0.77-1.02)
[2018-05-20 15:59] LABS: BUN/Creatinine Ratio 25.6 (8-20); EGFR African American 68.1 (>60); EGFR Non-African American 56.3 (>60); Potassium 4.5 mmol/L (3.5-5.0)
[2018-05-20] MEDS ORDERED: Bisacodyl SUPP* 10 MG SUPP PR ONE (16:29)
--- NOTE | 2018-05-20 16:33 | PN ---
Subjective Date of Service: 05/20/18 Interval History: Mr. Carter is feeling ok today. He still has not had a BM and is feeling bloated. He continues to have difficulty emptying his bladder, but has not required any further straight cathing. He denies CP, SOB, N/V. No confusion. Had a headache this morning, but states this is typical for him. Family History: Unchanged from Admission Social History: Unchanged from Admission Past Medical History: Unchanged from Admission Objective Active Medications: Acetaminophen (Tylenol Tab*) 650 mg PO Q4H PRN FEVER/PAIN Cholecalciferol (Vitamin D Tab*) 2,000 units PO QAM [facility] Clonazepam (Klonopin Tab(*)) 0.5 mg PO BEDTIME [facility] Sodium Chloride (Ns 0.9% 1000 Ml) 1,000 mls @ 75 mls/hr IV PER RATE [facility] Ibuprofen (Motrin Tab*) 600 mg PO Q6H PRN PAIN Montelukast Sodium (Singulair Tab*) 10 mg PO BEDTIME [facility] Morphine Sulfate (Morphine Oral.Soln 10 Mg*) 30 mg PO TID [facility] Pantoprazole Sodium (Protonix Tab*) 40 mg PO BID [facility] Polyethylene Glycol/Electrolytes (Miralax*) 17 gm PO DAILY [facility] Ropinirole HCl (Requip Tab*) 1 mg PO BID [facility] Ropinirole HCl (Requip Tab*) 1 mg PO BID PRN [facility] Sumatriptan Succinate (Imitrex Tab*) 100 mg PO DAILY PRN [facility] Tamsulosin HCl (Flomax Cap*) 0.4 mg PO DAILY [facility] Tizanidine HCl (Zanaflex Tab*) 4 mg PO TID [facility] Vital Signs - 8 hr 05/20/18 05/20/18 10:06 14:06 Respiratory 20 20 Rate Oxygen Devices in Use Now: None Appearance: Elderly male sitting in bed in NAD Eyes: No Scleral Icterus Ears/Nose/Mouth/Throat: Mucous Membranes Moist Neck: NL Appearance and Movements; NL JVP, Trachea Midline Respiratory: Symmetrical Chest Expansion and Respiratory Effort, Clear to Auscultation Cardiovascular: NL Sounds; No Murmurs; No JVD, RRR Abdominal: - - Distended, slightly tender to palpation Skin: No Rash or Ulcers Neurological: Alert and Oriented x 3 Lines/Tubes/Other Access: Clean, Dry and Intact Peripheral IV Nutrition: Taking PO's Result Diagrams: 05/19/18 06:33 05/21/18 05:52 Assess/Plan/Problems-Billing Assessment: Mr. Carter is a 77 yo M with PMH of chronic pain, migraines, DVT, depression , and GERD; who presented to the ED with c/o confusion and was found to be hyponatremic. - Patient Problems (1) Acute kidney injury Code(s): N17.9 - ACUTE KIDNEY FAILURE, UNSPECIFIED Comment: - Present on admission then resolved, but creatinine back up today - FENa indicates prerenal source, likely hypovolemia at this point - Likely exacerbated by fluid restriction - Start NS at 75mL/hr and recheck in the AM (2) Constipation Code(s): K59.00 - CONSTIPATION, UNSPECIFIED Comment: - Unclear etiology, but appears to be chronic - Continue aggressive bowel regmien (3) Hyponatremia with excess extracellular fluid volume Code(s): E87.1 - HYPO-OSMOLALITY AND HYPONATREMIA Comment: - Resolved - Possible element of SIADH, no clear cause - Stop fluid restriction d/t CHRISTIANO (4) Migraines Code(s): G43.909 - MIGRAINE, UNSP, NOT INTRACTABLE, WITHOUT STATUS MIGRAINOSUS Comment: - Continue sumatriptan, ibuprofen (5) History of DVT (deep vein thrombosis) Code(s): Z86.718 - PERSONAL HISTORY OF OTHER VENOUS THROMBOSIS AND EMBOLISM Comment: - Reportedly in 2013 - Resume warfarin today (6) Hypertension Code(s): I10 - ESSENTIAL (PRIMARY) HYPERTENSION Comment: - Normotensive, SBP 110-120s - Not on outpatient medication (7) BPH (benign prostatic hyperplasia) Code(s): N40.0 - BENIGN PROSTATIC HYPERPLASIA WITHOUT LOWER URINRY TRACT SYMP Comment: - New diagnosis based on urinary retention and imcomplete emptying - Start tamsulosin (8) Restless leg syndrome Comment: - Continue Requip (9) GERD (gastroesophageal reflux disease) Code(s): K21.9 - GASTRO-ESOPHAGEAL REFLUX DISEASE WITHOUT ESOPHAGITIS Comment : - Continue pantoprazole (10) DVT prophylaxis Comment: - Resume warfarin when INR normalizes (11) Full code status Code(s): Z78.9 - OTHER SPECIFIED HEALTH STATUS Comment: Status and Disposition: Inpatient. Anticipate d/c home when medically stable, hopefully tomorrow. Attending: Tangela Raya
[2018-05-20] MEDS: NS 0.9% 1000 ML** 1,000 ML IV SCH (16:55)
[2018-05-20] MEDS: Montelukast Sodium TAB* 10 MG PO SCH (20:17)
[2018-05-20] MEDS: clonazePAM TAB(*) 0.5 MG PO SCH (20:17)
[2018-05-20] MEDS ORDERED: Melatonin 3 MG TAB PO PRN (22:39)
[2018-05-21] MEDS: Ibuprofen TAB* 600 MG PO PRN (05:38)
[2018-05-21 06:34] LABS: BUN/Creatinine Ratio 26.7 (8-20); Calcium 8.8 mg/dL (8.6-10.3); EGFR African American 74.3 (>60); EGFR Non-African American 61.4 (>60); Potassium 4.6 mmol/L (3.5-5.0)
[2018-05-21] MEDS: tiZANidine TAB* 2 MG PO SCH ×3 (09:47→19:55)
[2018-05-21] MEDS: Polyethylene Glycol 3350* 17 GM PACKET PO SCH (09:47)
[2018-05-21] MEDS: Cholecalciferol TAB* 1000 UNITS PO SCH (09:48)
[2018-05-21] MEDS: Tamsulosin CAP* 0.4 MG PO SCH (09:48)
[2018-05-21] MEDS: Pantoprazole TAB * 40 MG TAB PO SCH ×2 (09:48→19:55)
[2018-05-21] MEDS: rOPINIRole TAB* 1 MG PO SCH ×2 (09:48→19:55)
[2018-05-21] MEDS: Morphine ORAL.SOLN 10 mg* 2 MG/ML UDC 5 ml PO SCH ×3 (09:49→19:57)
[2018-05-21] MEDS: NS 0.9% 1000 ML** 1,000 ML IV SCH (09:59)
[2018-05-21] MEDS ORDERED: Sodium Phosphate ADULT ENEMA* 118 ml bottle PR ONE (10:17)
[2018-05-21] MEDS: rOPINIRole TAB* 1 MG PO PRN (14:41)
[2018-05-21] MEDS ORDERED: Magnesium CITRATE* 300 ML BTL PO ONE (16:38)
--- NOTE | 2018-05-21 18:04 | PN ---
Subjective Date of Service: 05/21/18 Interval History: Mr. Carter has still not had a BM. He is feeling bloated and has pain when he palpates his abdomen. He offers no other complaints. Denies headaches, dizziness, confusion. His friend at bedside is concerned about his health and has many questions regarding his care. She reports that he becomes constipated occasionally and castor oil has helped in the past. Family History: Unchanged from Admission Social History: Unchanged from Admission Past Medical History: Unchanged from Admission Objective Active Medications: Acetaminophen (Tylenol Tab*) 650 mg PO Q4H PRN FEVER/PAIN Cholecalciferol (Vitamin D Tab*) 2,000 units PO QAM [facility] Clonazepam (Klonopin Tab(*)) 0.5 mg PO BEDTIME [facility] Ibuprofen (Motrin Tab*) 600 mg PO Q6H PRN PAIN Melatonin (Melatonin) 3 mg PO BEDTIME PRN; Protocol SLEEP Montelukast Sodium (Singulair Tab*) 10 mg PO BEDTIME [facility] Morphine Sulfate (Morphine Oral.Soln 10 Mg*) 30 mg PO TID [facility] Pantoprazole Sodium (Protonix Tab*) 40 mg PO BID [facility] Polyethylene Glycol/Electrolytes (Miralax*) 17 gm PO DAILY [facility] Ropinirole HCl (Requip Tab*) 1 mg PO BID [facility] Ropinirole HCl (Requip Tab*) 1 mg PO BID PRN [facility] Sumatriptan Succinate (Imitrex Tab*) 100 mg PO DAILY PRN [facility] HEADACHE Tamsulosin HCl (Flomax Cap*) 0.4 mg PO DAILY [facility] Tizanidine HCl (Zanaflex Tab*) 4 mg PO TID [facility] Vital Signs - 8 hr 05/21/18 05/21/18 05/21/18 11:36 11:58 13:51 Temperature 97.5 F 97.8 F Pulse Rate 77 85 Respiratory 16 16 18 Rate Blood Pressure 114/62 138/76 (mmHg) O2 Sat by Pulse 97 97 Oximetry Oxygen Devices in Use Now: None Appearance: Elderly male sitting in bed in NAD Eyes: No Scleral Icterus Ears/Nose/Mouth/Throat: Mucous Membranes Moist Neck: NL Appearance and Movements; NL JVP, Trachea Midline Respiratory: Symmetrical Chest Expansion and Respiratory Effort, Clear to Auscultation Cardiovascular: NL Sounds; No Murmurs; No JVD, RRR Abdominal: - - Distended, tender to palpation of LLQ and RLQ Extremities: - - Mild nonpitting to BLE Neurological: Alert and Oriented x 3 Lines/Tubes/Other Access: Clean, Dry and Intact Peripheral IV Nutrition: Taking PO's Result Diagrams: 05/19/18 06:33 05/21/18 05:52 Assess/Plan/Problems-Billing Assessment: Mr. Carter is a 77 yo M with PMH of chronic pain, migraines, DVT, depression , and GERD; who presented to the ED with c/o confusion and was found to be hyponatremic. - Patient Problems (1) Constipation Code(s): K59.00 - CONSTIPATION, UNSPECIFIED Comment: - Unclear etiology, but appears to be somewhat chronic - Continue aggressive bowel regmien (2) Acute kidney injury Code(s): N17.9 - ACUTE KIDNEY FAILURE, UNSPECIFIED Comment: - Resolved - FENa indicates prerenal source, likely hypovolemia (3) Hyponatremia with excess extracellular fluid volume Code(s): E87.1 - HYPO-OSMOLALITY AND HYPONATREMIA Comment: - Resolved - Possible element of SIADH, no clear cause - Stop fluid restriction d/t CHRISTIANO (4) Migraines Code(s): G43.909 - MIGRAINE, UNSP, NOT INTRACTABLE, WITHOUT STATUS MIGRAINOSUS Comment: - Continue sumatriptan, ibuprofen (5) History of DVT (deep vein thrombosis) Code(s): Z86.718 - PERSONAL HISTORY OF OTHER VENOUS THROMBOSIS AND EMBOLISM Comment: - Reportedly in 2013 - Resume warfarin today (6) Hypertension Code(s): I10 - ESSENTIAL (PRIMARY) HYPERTENSION Comment: - Normotensive, SBP 110-130s - Not on outpatient medication (7) BPH (benign prostatic hyperplasia) Code(s): N40.0 - BENIGN PROSTATIC HYPERPLASIA WITHOUT LOWER URINRY TRACT SYMP Comment: - New diagnosis based on urinary retention and imcomplete emptying - Start tamsulosin (8) Restless leg syndrome Comment: - Continue Requip (9) GERD (gastroesophageal reflux disease) Code(s): K21.9 - GASTRO-ESOPHAGEAL REFLUX DISEASE WITHOUT ESOPHAGITIS Comment : - Continue pantoprazole (10) DVT prophylaxis Comment: - Warfarin (11) Full code status Code(s): Z78.9 - OTHER SPECIFIED HEALTH STATUS Comment: Status and Disposition: Inpatient. Anticipate d/c home when medically stable, hopefully tomorrow. Attending: Dallas Garrido
[2018-05-21] MEDS ORDERED: Warfarin TAB(*) 4 MG PO ONE (19:00)
[2018-05-21] MEDS: Ondansetron TAB* 4 MG PO PRN (19:13)
[2018-05-21] MEDS: Montelukast Sodium TAB* 10 MG PO SCH (19:55)
[2018-05-21] MEDS: clonazePAM TAB(*) 0.5 MG PO SCH (19:55)
[2018-05-21] MEDS: SUMAtriptan TAB* 100 MG PO PRN (19:59)
[2018-05-21] MEDS ORDERED: Castor Oil (Pharmaceutic Aid)* 118 ML BTL PO ONE (20:00)
[2018-05-22] MEDS ORDERED: Castor Oil (Pharmaceutic Aid)* 118 ML BTL PO ONE (07:21)
[2018-05-22 07:38] LABS: INR 1.08 (0.77-1.02)
[2018-05-22 07:46] VITALS: BP 115/68
[2018-05-22] MEDS: Polyethylene Glycol 3350* 17 GM PACKET PO SCH (08:40)
[2018-05-22] MEDS: tiZANidine TAB* 2 MG PO SCH (08:41)
[2018-05-22] MEDS: Tamsulosin CAP* 0.4 MG PO SCH (08:41)
[2018-05-22] MEDS: Pantoprazole TAB * 40 MG TAB PO SCH (08:41)
[2018-05-22] MEDS: Cholecalciferol TAB* 1000 UNITS PO SCH (08:41)
[2018-05-22] MEDS: rOPINIRole TAB* 1 MG PO SCH (08:42)
[2018-05-22] MEDS: Morphine ORAL.SOLN 10 mg* 2 MG/ML UDC 5 ml PO SCH (09:56)
[2018-05-22] MEDS: Acetaminophen TAB* 325 MG PO PRN (09:56)
[2018-05-22] MEDS: Ondansetron TAB* 4 MG PO PRN (10:46)
[2018-05-22] MEDS ORDERED: Docusate CAP* 100 MG PO PRN (10:48)
[2018-05-22] MEDS ORDERED: Senna TAB PO PRN (10:48)
[2018-05-22] MEDS ORDERED: Magnesium Hydroxide LIQ* 30 ML UDC PO PRN (10:48)
[2018-05-22] MEDS ORDERED: Warfarin TAB(*) 5 MG PO ONE (12:30)
--- NOTE | 2018-05-22 20:16 | DS ---
CC: Dr. King Aponte * DISCHARGE SUMMARY: DATE OF ADMISSION: 05/18/18 DATE OF DISCHARGE: 05/22/18 PRIMARY CARE PROVIDER: Dr. King Aponte. ATTENDING PHYSICIAN: Dr. Laureano * (dictated by Jace Marie NP). PRIMARY DIAGNOSES: 1. Hyponatremia, hypovolemic. 2. Acute kidney injury. 3. Constipation, opioid induced. 4. Benign prostatic hyperplasia. SECONDARY DIAGNOSES: 1. Migraines. 2. History of deep vein thrombosis. 3. Hypertension. 4. Restless legs syndrome. 5. Gastroesophageal reflux disease. STUDIES WHILE IN THE HOSPITAL: 1. EKG on 05/18/18 shows sinus bradycardia with a rate of 56, QTc 391, minimal ST elevation in II. 2. Chest x-ray on 05/18/18 reads as stigmata of obstructive lung disease. No acute pulmonary or cardiac process evident. 3. Brain CT on 05/18/18 reads as there is stable age-related diffuse cerebral volume loss and chronic microvascular ischemic change. No acute intracranial pathology. No intracranial hemorrhage including subdural hematoma. 4. Abdomen x-ray on 05/20/18 reads as large volume of stool throughout the colon. No evidence of bowel obstruction. HISTORY OF PRESENT ILLNESS AND HOSPITAL COURSE: Mr. Carter is a 77-year- old male with past medical history of chronic back pain, migraine, DVT, restless legs syndrome and GERD, who presented to the emergency room on with complaints of confusion. Please see the history and physical by Dr. Slaughter for complete summary of the events leading up to this hospitalization. In short, the patient reported feeling weak, tired and somewhat confused. He did not remember how he got to the emergency room. He had no nausea or headaches and was not able to provide any further information. In the emergency room, he had labs which revealed a supratherapeutic INR of 4.97, hyponatremia with a sodium of 125, hyperkalemia with a potassium of 5.7 and acute kidney injury with a creatinine of 1.4. The patient was admitted by the hospitalist service because of the concern for confusion. On admission, it was felt as though the hyponatremia was due to extracellular volume and it was believed that the patient was hypervolemic, so he was put on a fluid restriction of 1200 mL daily. He was not given any IV fluids for his acute kidney injury. His creatinine resolved the following day and his sodium increased to 133. His confusion resolved with the improvement in sodium. I attempted to discharge the patient on 05/19/18, though prior to discharge, the patient reported to me that he had not had a bowel movement in 1 week. He reported that he typically suffers from some degree of constipation, though 1 week was not normal for him. I started an aggressive bowel regimen and ultimately, the patient received 2 doses of castor oil, 1 dose of magnesium citrate, multiple doses of MiraLAX and senna as well as milk of mag. The patient did not have a bowel movement until 05/22/18 and did not feel comfortable going home without having a bowel movement. I did do an abdomen x- ray on 05/20/18, results are noted above, but there was no evidence of obstruction at that point. I will note that the patient's creatinine bumped again on 05/20/18 back up to 1.21. At that point, I felt as though this hyponatremia was secondary to hypovolemia, hence causing acute kidney injury. The patient got IV fluids and his sodium and creatinine resolved. As of 05/21/18 , sodium was 135, potassium was 4.6, and creatinine was 1.16. The patient was noted to have some episodes of urinary retention and incomplete emptying while here in the hospital and ultimately I felt as though this represented BPH and started the patient on tamsulosin on 05/20/18, which he responded well to. Regarding the patient's INR, his warfarin was initially held due to the supratherapeutic INR on 05/18/18 and 05/19/18 and the patient received warfarin yesterday, though INR is still subtherapeutic at that point, this is likely also related to the IV fluids that were administered. As of today, the patient reports feeling well. He still feels somewhat bloated and has some mild tenderness to the lower quadrants on palpation, but he is comfortable going home. There has been no further confusion or obvious urinary retention. Mr. Carter is stable for discharge today. Vital signs are as follows: Temp 98.0, heart rate 77, respiratory rate 16, oxygen saturation 99% on room air , blood pressure 115/68. DISCHARGE MEDICATIONS: New medications: 1. Docusate 100 mg p.o. b.i.d. 2. Milk of mag 30 mL p.o. q.6 hours p.r.n. constipation. 3. Senna 2 tabs p.o. at bedtime p.r.n. constipation. 4. Tamsulosin 0.4 mg p.o. daily. Changed medications: 1. Warfarin 5 mg p.o. today. 2. MiraLAX 17 g p.o. b.i.d. (previously was daily). Continued medications: 1. Beclomethasone dipropionate 80 mcg nasal daily. 2. Calcium carbonate 1000 mg p.o. q.4 hours p.r.n. indigestion. 3. Cholecalciferol 2000 units p.o. daily. 4. Clonazepam 0.5 mg p.o. at bedtime. 5. Desloratadine 5 mg p.o. daily. 6. Levocetirizine 5 mg p.o. daily. 7. Mometasone 50 mcg both nares daily. 8. Montelukast 10 mg p.o. at bedtime. 9. Morphine sulfate 30 mg p.o. t.i.d. p.r.n. pain. 10. Omeprazole 40 mg p.o. b.i.d. 11. ReQuip 1 mg p.o. up to 6 times daily. 12. Sumatriptan 100 mg p.o. daily p.r.n. migraine headache. 13. Testosterone 200 mg IM q.14 days. 14. Zanaflex 4 mg p.o. t.i.d. p.r.n. 15. Vitamin B complex 1 tab p.o. daily. DISCHARGE PLAN: Mr. Carter will be discharged home. Activity will be as tolerated. Diet will be regular as tolerated. Medications are noted above. I have sent in a refill on the patient's ondansetron. I have also prescribed tamsulosin for his BPH. I have advised the patient that he will need to take a more aggressive bowel regimen daily in order to prevent further constipation. I have instructed the patient to take 5 mg of warfarin today as his INR is subtherapeutic. I have ordered an INR for tomorrow. The patient reports that he will go to his primary care office tomorrow to have this checked and he will check in with his PCP about further warfarin dosing for tomorrow. The patient has been instructed to return to the emergency room or nearest hospital for any worsening of symptoms, shortness of breath, lightheadedness, dizziness, chest discomfort, high fevers, chills, night sweats, loss of consciousness, or any other worrisome signs or symptoms. This is a summarized report of a complex medical history and hospital stay. For further details, please see the entire medical record. TIME SPENT: Approximately 45 minutes was spent on this discharge. JACE MARIE, APPLICATION ARCHITECT [id number]/CPS #: [id number] DELON
== END 2018-05-22 12:30 | disposition home or self-care (01) | DRG 644 ==
LOC: ED 16:18 → MED 21:05 → OBSVTOIN 05-19 15:57
PROVIDERS: ADMIT Internal Medicine; ATTEND Student in an Organized Health Care Education/Training Program
DX: E22.2 Syndrome of inappropriate secretion of antidiuretic hormone (principal); N17.9 Acute kidney failure, unspecified; E86.1 Hypovolemia; E87.5 Hyperkalemia; K59.03 Drug induced constipation; T40.2X5A Adverse effect of other opioids, initial encounter; Y92.9 Unspecified place or not applicable; G43.909 Migraine, unspecified, not intractable, without status migrainosus; I10 Essential (primary) hypertension; G25.81 Restless legs syndrome; K21.9 Gastro-esophageal reflux disease without esophagitis; R79.1 Abnormal coagulation profile; N40.1 Benign prostatic hyperplasia with lower urinary tract symptoms; R33.8 Other retention of urine; M48.00 Spinal stenosis, site unspecified; M54.9 Dorsalgia, unspecified; K22.70 Barrett's esophagus without dysplasia; Z86.718 Personal history of other venous thrombosis and embolism; Z84.89 Family history of other specified conditions
CPT/HCPCS: 36415; 70450; 71046; 74019; 80048; 80053; 81003; 82570; 83735; 83880; 83930; 84100; 84300; 84484; 85025; 85610; 90686; 93005; 99284; A9270-GY

== ENCOUNTER 2018-05-23 21:44 | Emergency (ER) | payer MEDICARE ==
[2018-05-23] MEDS ORDERED: NS 0.9% 1000 ML** 1,000 ML IV ONE (21:52)
[2018-05-23 22:25] LABS: ABS Basophils 0 10^3/ul (0-0.2); ABS Eosinophils 0.1 10^3/ul (0-0.6); ABS Lymphocytes 0.3 10^3/ul (1.0-4.8); ABS Monocytes 0.5 10^3/ul (0-0.8); ABS Neutrophils 7.7 10^3/ul (1.5-7.7); ABS Nucleated RBC 0 10^3/ul; Eosinophil % 1.6 %; Hematocrit 41 % (42-52); Hemoglobin 13.9 g/dl (14.0-18.0); Lymphocyte % 3.1 %; Mean Corpuscular HGB Conc 34 g/dl (31-36); Mean Corpuscular Hemoglobin 30 pg (27-31); Mean Corpuscular Volume 89 fL (80-94); Mean Platelet Volume 9.4 fL (7.4-10.4); Nucleated Red Blood Cells % 0; Platelet Count 140 10^3/ul (150-450); Red Blood Count 4.62 10^6/ul (4.00-5.40); Red Cell Distribution Width 15 % (10.5-15); White Blood Count 8.5 10^3/ul (3.5-10.8)
[2018-05-23 22:40] LABS: INR 1.8 (0.77-1.02)
[2018-05-23 22:42] LABS: Albumin 4.2 g/dL (3.2-5.2); Albumin/Globulin Ratio 1.8 (1-3); BUN/Creatinine Ratio 26.8 (8-20); C Reactive Protein 9.21 mg/L (<8.01); Calcium 9.4 mg/dL (8.6-10.3); EGFR African American 77.3 (>60); EGFR Non-African American 63.9 (>60); Globulin 2.3 g/dL (2-4); Potassium 4.9 mmol/L (3.5-5.0); Total Bilirubin 0.6 mg/dL (0.2-1.0); Total Protein 6.5 g/dL (6.4-8.9)
[2018-05-24] MEDS ORDERED: Ondansetron INJ* 2 MG/ML VIAL IV ONE (00:01)
[2018-05-24] MEDS ORDERED: Metoclopramide IV* 5 MG/ML 2 ML VIAL IV ONE (00:09)
[2018-05-24] MEDS ORDERED: diPHENhydraMINE IV* 50 MG/ML 1 ml VIAL (BENADRYL) IM ONE (00:10)
[2018-05-24] MEDS ORDERED: Acetaminophen TAB* 325 MG PO ONE (00:10)
--- NOTE | 2018-05-24 00:17 | ED ---
Nausea/Vomiting/Diarrhea HPI - HPI Summary HPI Summary: Patient was discharged yesterday from [facility] after admission for hyponatremia, probably today complains of sudden onset migraine, N/V 2, diffuse abdominal pain. Also complains of possible constipation. Due to nausea vomiting concerned he would not be able to take his evening meds which include Coumadin. Patient and family deny fever, cough, sore throat, CP, SOB, diarrhea, change in urine. Medical history is prior DVT, versus leg syndrome, spinal stenosis for which patient takes morphine. - History of Current Complaint Chief Complaint: EDNauseaVomitDiarrh Stated Complaint: THROWING UP, CANT KEEP MEDICATION DOWN Time Seen by Provider: 05/23/18 23:59 Hx Obtained From: Patient, Family/Criminology Teacher Onset/Duration: Sudden Onset Severity Initially: Moderate Severity Currently: Moderate Pain Intensity: 6 Pain Scale Used: 0-10 Numeric Location: Diffuse Character: Cramping Aggravating Factor(s): Food Alleviating Factor(s): Nothing Nausea/Vomiting Presence: Nauseated, Vomiting Vomiting Characteristics: Nonbilious Diarrhea Presence: No - Allergies/Home Medications Allergies/Adverse Reactions: Allergies Allergy/AdvReac Type Severity Reaction Status Date / Time buspirone [From BuSpar] Allergy Unknown Verified 05/18/18 16:29 Reaction Details cat dander Allergy Hay fever Verified 05/18/18 16:29 dog dander Allergy Hay fever Verified 05/18/18 16:29 Horse/Equine Containing Allergy Hay fever Verified 05/18/18 16:29 Products testosterone Allergy Redness Verified 05/18/18 16:29 PMH/Surg Hx/FS Hx/Imm Hx Endocrine/Hematology History: Reports: Hx Anemia - IRON TABLET Denies: Hx Diabetes, Hx Thyroid Disease Cardiovascular History: Reports: Other Cardiovascular Problems/Disorders - DVT 2012-LEFT LEG Denies: Hx Angina, Hx Congestive Heart Failure, Hx Coronary Artery Disease, Hx Deep Vein Thrombosis, Hx Hypercholesterolemia, Hx Hypertension, Hx Myocardial Infarction, Hx Pacemaker/ICD, Hx Valvular Heart Disease Respiratory History: Reports: Hx Asthma - "slight" Denies: Hx Chronic Obstructive Pulmonary Disease (COPD), Hx Lung Cancer GI History: Reports: Hx Gastroesophageal Reflux Disease - CONTROL WITH MEDS, Hx Irritable Bowel - POSSIBLE PER PATIENT, Other GI Disorders - HX BEZOAR 1 YEAR AGO. also slow peristalsis Denies: Hx Gall Bladder Disease, Hx Gastrointestinal Bleed, Hx Ulcer, Hx Urosepsis History: Denies: Hx Kidney Stones, Hx Renal Disease Musculoskeletal History: Reports: Hx Scoliosis, Other Musculoskeletal History - spinal stenosis, and extreme restless leg syndrome Sensory History: Reports: Hx Contacts or Glasses - GLASSES Denies: Hx Hearing Aid Opthamlomology History: Reports: Hx Contacts or Glasses - GLASSES Neurological History: Reports: Hx Headaches - SOMETIMES DAILY, MAYBE SIDE EFFECT OF MEDICATION, Hx Migraine - LAST ONE WAS 03/06 - USUALLY 2 TIMES A WEEK Denies: Hx Dementia, Hx Seizures, Hx Transient Ischemic Attacks (TIA) Comment Only: Other Neuro Impairments/Disorders - DYSTHIMIA Psychiatric History: Reports: Hx Depression - CONTROL WITH MED Denies: Hx Anxiety, Hx Panic Disorder, Hx Schizophrenia, Hx Bipolar Disorder - Surgical History Surgery Procedure, Year, and Place: APPENDECTOMY, [facility]. TONSILLECTOMY A CHILD. JAW SURGERY. 2003 L4-5 LAMINECTOMY, [facility]. 1964 AND LEFT SHOULDER SURGERY. 2011 RIGHT SHOULDER SURGERY, [facility]. HEMORRHOIDECTOMY,. 01/23/2016 LEFT ELBOW DECOMPRESSION SURGERY, [facility] Hx Anesthesia Reactions: No - Immunization History Date of Tetanus Vaccine: Unk Date of Influenza Vaccine: Fall 2014 Infectious Disease History: No Infectious Disease History: Denies: Traveled Outside the [place] in Last 30 Days - Family History Known Family History: Negative: Renal Disease, Blood Disorder - Social History Alcohol Use: None Hx Substance Use: No Substance Use Type: Reports: None Hx Tobacco Use: No Smoking Status (MU): Never Smoked Tobacco Have You Smoked in the Last Year: No Review of Systems Constitutional: Negative Eyes: Negative ENT: Negative Cardiovascular: Negative Respiratory: Negative Positive: Abdominal Pain, Vomiting, Nausea Genitourinary: Negative Musculoskeletal: Negative Skin: Negative Positive: Headache Psychological: Normal All Other Systems Reviewed And Are Negative: Yes Physical Exam - Summary Physical Exam Summary: Abdomen mildly diffusely tender. Physical exam otherwise unremarkable. Patient in no apparent distress. Triage Information Reviewed: Yes Vital Signs On Initial Exam: Initial Vitals Temp Pulse Resp BP Pulse Ox 98.9 F 87 16 177/87 98 05/23/18 21:49 05/23/18 21:49 05/23/18 21:49 05/23/18 21:49 05/23/18 21:49 Vital Signs Reviewed: Yes Appearance: Positive: Well-Appearing Skin: Positive: Warm Head/Face: Positive: Normal Head/Face Inspection Eyes: Positive: Normal Neck: Positive: Supple Respiratory/Lung Sounds: Positive: Clear to Auscultation Cardiovascular: Positive: Normal Abdomen Description: Positive: Other: Musculoskeletal: Positive: Normal Neurological: Positive: Normal Psychiatric: Positive: Normal AVPU Assessment: Alert - [place] Coma Scale Best Eye Response: 4 - Spontaneous Best Motor Response: 6 - Obeys Commands Best Verbal Response: 5 - Oriented Coma Scale Total: 15 Diagnostics - Vital Signs Vital Signs Temp Pulse Resp BP Pulse Ox 05/23/18 21:49 98.9 F 87 16 177/87 98 - Laboratory Lab Results: Lab Results 05/23/18 05/23/18 05/23/18 Range/Units 22:17 22:17 22:17 WBC 8.5 (3.5-10.8) 10^3/ul RBC 4.62 (4.00-5.40) 10^6/ul Hgb 13.9 L (14.0-18.0) g/dl Hct 41 L (42-52) % MCV 89 (80-94) fL MCH 30 (27-31) pg MCHC 34 (31-36) g/dl RDW 15 (10.5-15) % Plt Count 140 L (150-450) 10^3/ul MPV 9.4 (7.4-10.4) fL Neut % (Auto) 89.7 % Lymph % (Auto) 3.1 % Jerauld % (Auto) 5.4 % Eos % (Auto) 1.6 % Baso % (Auto) 0.2 % Absolute Neuts (auto) 7.7 (1.5-7.7) 10^3/ul Absolute Lymphs (auto) 0.3 L (1.0-4.8) 10^3/ul Absolute Monos (auto) 0.5 (0-0.8) 10^3/ul Absolute Eos (auto) 0.1 (0-0.6) 10^3/ul Absolute Basos (auto) 0 (0-0.2) 10^3/ul Absolute Nucleated RBC 0 10^3/ul Nucleated RBC % 0 INR (Anticoag Therapy) 1.80 H (0.77-1.02) Sodium 131 L (135-145) mmol/L Potassium 4.9 (3.5-5.0) mmol/L Chloride 100 L (101-111) mmol/L Carbon Dioxide 23 (22-32) mmol/L Anion Gap 8 (2-11) mmol/L BUN 30 H (6-24) mg/dL Creatinine 1.12 (0.67-1.17) mg/dL Est GFR ( Amer) 77.3 (>60) Est GFR (Non-Af Amer) 63.9 (>60) BUN/Creatinine Ratio 26.8 H (8-20) Glucose 105 H (70-100) mg/dL Lactic Acid (0.5-2.0) mmol/L Calcium 9.4 (8.6-10.3) mg/dL Total Bilirubin 0.60 (0.2-1.0) mg/dL AST 23 (13-39) U/L ALT 24 (7-52) U/L Alkaline Phosphatase 84 (34-104) U/L Troponin I 0.00 (<0.04) ng/mL C-Reactive Protein 9.21 H (<8.01) mg/L Total Protein 6.5 (6.4-8.9) g/dL Albumin 4.2 (3.2-5.2) g/dL Globulin 2.3 (2-4) g/dL Albumin/Globulin Ratio 1.8 (1-3) Lipase 19 (11.0-82.0) U/L / Range/Units 22:17 WBC (3.5-10.8) 10^3/ul RBC (4.00-5.40) 10^6/ul Hgb (14.0-18.0) g/dl Hct (42-52) % MCV (80-94) fL MCH (27-31) pg MCHC (31-36) g/dl RDW (10.5-15) % Plt Count (150-450) 10^3/ul MPV (7.4-10.4) fL Neut % (Auto) % Lymph % (Auto) % Jerauld % (Auto) % Eos % (Auto) % Baso % (Auto) % Absolute Neuts (auto) (1.5-7.7) 10^3/ul Absolute Lymphs (auto) (1.0-4.8) 10^3/ul Absolute Monos (auto) (0-0.8) 10^3/ul Absolute Eos (auto) (0-0.6) 10^3/ul Absolute Basos (auto) (0-0.2) 10^3/ul Absolute Nucleated RBC 10^3/ul Nucleated RBC % INR (Anticoag Therapy) (0.77-1.02) Sodium (135-145) mmol/L Potassium (3.5-5.0) mmol/L Chloride (101-111) mmol/L Carbon Dioxide (22-32) mmol/L Anion Gap (2-11) mmol/L BUN (6-24) mg/dL Creatinine (0.67-1.17) mg/dL Est GFR ( Amer) (>60) Est GFR (Non-Af Amer) (>60) BUN/Creatinine Ratio (8-20) Glucose (70-100) mg/dL Lactic Acid 0.9 (0.5-2.0) mmol/L Calcium (8.6-10.3) mg/dL Total Bilirubin (0.2-1.0) mg/dL AST (13-39) U/L ALT (7-52) U/L Alkaline Phosphatase (34-104) U/L Troponin I (<0.04) ng/mL C-Reactive Protein (<8.01) mg/L Total Protein (6.4-8.9) g/dL Albumin (3.2-5.2) g/dL Globulin (2-4) g/dL Albumin/Globulin Ratio (1-3) Lipase (11.0-82.0) U/L Result Diagrams: 05/23/18 22:17 05/23/18 22:17 Lab Statement: Any lab studies that have been ordered have been reviewed, and results considered in the medical decision making process. Naus/Vom/Diarrhea Course/Dx - Course Course Of Treatment: Patient was discharged yesterday from [facility] after admission for hyponatremia, probably today complains of sudden onset migraine, N/V 2, diffuse abdominal pain. Also complains of possible constipation. Patient states no bowel movement during stay at [facility]. One small bowel movement yesterday after taking magnesium citrate. Due to nausea vomiting concerned he would not be able to take his evening meds which include Coumadin. Patient and family deny fever, cough, sore throat, CP, SOB, diarrhea, change in urine. Medical history is prior DVT, versus leg syndrome, spinal stenosis for which patient takes morphine. Physical exam:Abdomen mildly diffusely tender. Physical exam otherwise unremarkable. Patient in no apparent distress. Blood pressure elevated 177/87, vital signs otherwise unremarkable. Labs at patient baseline. EKG sinus rhythm. Nausea controlled with Reglan. KUB positive for stool burden. I advised patient to continue with Mag citrate at home. Rx for Reglan. - Differential Dx/Diagnosis Provider Diagnosis: Nausea & vomiting, Headache Condition At Discharge: Stable Discharge - Sign-Out/Discharge Documenting (check all that apply): Patient Departure Patient Received Moderate/Deep Sedation with Procedure: No - Discharge Plan Condition: Stable Disposition: HOME Prescriptions: Metoclopramide TAB* [Reglan TAB*] 10 mg PO Q8H PRN 3 Days #10 tab PRN Reason: Nausea Patient Education Materials: Acute Headache (ED), Acute Nausea and Vomiting (ED ) Referrals: King Aponte MD [Primary Care Provider] - Additional Instructions: Follow-up with primary care. Return to the ED for any new or worsening symptoms. - Billing Disposition and Condition Condition: STABLE Disposition: Home
[2018-05-24 01:21] VITALS: BP 169/94
== END 2018-05-24 01:57 | disposition home or self-care (01) ==
LOC: ED 21:44
DX: R11.2 Nausea with vomiting, unspecified (principal); R51 Headache; D64.9 Anemia, unspecified; Z86.718 Personal history of other venous thrombosis and embolism; K21.9 Gastro-esophageal reflux disease without esophagitis
CPT/HCPCS: 36415; 74018; 80053; 83605; 83690; 84484; 85025; 85610; 86140; 93005; 96361; 96372; 96374; 96375; 99283; A9270-GY; J1200; J2765

== ENCOUNTER 2018-11-03 14:43 | Inpatient (IN) | payer MEDICARE ==
[2018-11-03 15:39] LABS: ABS Lymphocytes 0.5 10^3/ul (1.0-4.8); ABS Monocytes 0.5 10^3/ul (0-0.8); ABS Neutrophils 9.9 10^3/ul (1.5-7.7); Eosinophil % 0.2 %; Hematocrit 46 % (42-52); Hemoglobin 15.2 g/dL (14.0-18.0); Lymphocyte % 4.8 %; Mean Corpuscular HGB Conc 33 g/dL (31-36); Mean Corpuscular Hemoglobin 27 pg (27-31); Mean Corpuscular Volume 82 fL (80-94); Mean Platelet Volume 9.8 fL (7.4-10.4); Nucleated Red Blood Cells % 0.1; Platelet Count 177 10^3/uL (150-450); Red Blood Count 5.55 10^6 /uL (4.18-5.48); Red Cell Distribution Width 17 % (10-15)
[2018-11-03] MEDS ORDERED: NS 0.9% 1000 ML** 1,000 ML IV ONE (15:44)
[2018-11-03] MEDS ORDERED: Ondansetron INJ* 2 MG/ML VIAL IV ONE ×2 (15:44→17:06)
--- NOTE | 2018-11-03 15:49 | ED ---
Abdominal Pain/Male - HPI Summary HPI Summary: The pt is a 78 Y/O M presenting to [facility] with a CC of LLQ pain that started and worsened throughout the night until this morning and is rated an 8/10 in severity, cramping, a/w nausea and diarrhea. He stated that he has nausea, diarrhea, non-productive cough, and cramping since the onset. He stated that he has not vomited. He also denies any urinary symptoms or genital pains. He reported no aggravating or alleviating factors. He has a pertinent medical history of GERD and an appendectomy in the 1970s. No fevers at home. States he has a hx of chronic headaches. - History of Current Complaint Chief Complaint: Rosenda Stated Complaint: NAUSEA, HEADACHE PER PT Time Seen by Provider: 11/03/18 15:21 Hx Obtained From: Patient Onset/Duration: Sudden Onset, Lasting Days - 1, Still Present, Worse Since - last night, 11/02/18 Timing: Constant Severity Initially: Moderate Severity Currently: Severe Pain Intensity: 8 Pain Scale Used: 0-10 Numeric Location: Discrete At: LLQ Radiates: No Character: Cramping Aggravating Factor(s): Nothing Alleviating Factor(s): Nothing Associated Signs And Symptoms: Positive: Nausea. Negative: Fever, Urinary Symptoms, Decreased Appetite, Vomiting, Diarrhea, Penile Discharge - Allergies/Home Medications Allergies/Adverse Reactions: Allergies Allergy/AdvReac Type Severity Reaction Status Date / Time buspirone [From BuSpar] Allergy Unknown Verified 08/20/18 13:43 Reaction Details cat dander Allergy Hay fever Verified 08/20/18 13:43 dog dander Allergy Hay fever Verified 08/20/18 13:43 Horse/Equine Containing Allergy Hay fever Verified 08/20/18 13:43 Products testosterone Allergy Redness Verified 08/20/18 13:43 Home Medications: Home Medications Acetaminophen TAB* [Tylenol TAB*] 650 mg PO Q6H PRN 11/03/18 [History Confirmed 11/03/18] Cholecalciferol TAB* [Vitamin D TAB*] 400 unit PO DAILY 11/03/18 [History Confirmed 11/03/18] Epinastine 0.05% OPHTH(NF) [Elestat 0.05% OPTH SRUTHI (NF)] 1 - 2 drop BOTH EYES BID PRN 11/03/18 [History Confirmed 11/03/18] Melatonin/Pyridoxine HCl (B6) [Melatonin 3 mg Tablet] 1 tab PO BEDTIME 11/03/18 [History Confirmed 11/03/18] Polyethylene Glycol 3350* [Miralax*] 17 gm PO DAILY 11/03/18 [History Confirmed 11/03/18] Promethazine HCl 25 mg PO Q6HR PRN 11/03/18 [History Confirmed 11/03/18] Pseudoephedrine HCL ER TAB* [Sudafed 12 Hour*] 120 mg PO DAILY 11/03/18 [ History Confirmed 11/03/18] Spironolactone/HCTZ 25-25 MG* [Aldactazide 25-25*] 1 tab PO DAILY PRN 11/03/18 [ History Confirmed 11/03/18] Warfarin TAB(*) [Coumadin TAB(*)] 1.25 tab PO DAILY 11/03/18 [History Confirmed 11/03/18] PMH/Surg Hx/FS Hx/Imm Hx Previously Healthy: Yes Endocrine/Hematology History: Reports: Hx Anemia - IRON TABLET Denies: Hx Diabetes, Hx Thyroid Disease Cardiovascular History: Reports: Other Cardiovascular Problems/Disorders - DVT 2012-LEFT LEG Denies: Hx Angina, Hx Congestive Heart Failure, Hx Coronary Artery Disease, Hx Deep Vein Thrombosis, Hx Hypercholesterolemia, Hx Hypertension, Hx Myocardial Infarction, Hx Pacemaker/ICD, Hx Valvular Heart Disease Respiratory History: Reports: Hx Asthma - "slight" Denies: Hx Chronic Obstructive Pulmonary Disease (COPD), Hx Lung Cancer GI History: Reports: Hx Gastroesophageal Reflux Disease - CONTROL WITH MEDS, Hx Irritable Bowel - POSSIBLE PER PATIENT, Other GI Disorders - HX BEZOAR 1 YEAR AGO. also slow peristalsis Denies: Hx Gall Bladder Disease, Hx Gastrointestinal Bleed, Hx Ulcer, Hx Urosepsis History: Denies: Hx Kidney Stones, Hx Renal Disease Musculoskeletal History: Reports: Hx Scoliosis, Other Musculoskeletal History - spinal stenosis, and extreme restless leg syndrome Sensory History: Reports: Hx Contacts or Glasses - GLASSES Denies: Hx Hearing Aid Opthamlomology History: Reports: Hx Contacts or Glasses - GLASSES Neurological History: Reports: Hx Headaches - SOMETIMES DAILY, MAYBE SIDE EFFECT OF MEDICATION, Hx Migraine - LAST ONE WAS 03/06 - USUALLY 2 TIMES A WEEK Denies: Hx Dementia, Hx Seizures, Hx Transient Ischemic Attacks (TIA) Comment Only: Other Neuro Impairments/Disorders - DYSTHIMIA Psychiatric History: Reports: Hx Depression - CONTROL WITH MED Denies: Hx Anxiety, Hx Panic Disorder, Hx Schizophrenia, Hx Bipolar Disorder - Surgical History Surgery Procedure, Year, and Place: APPENDECTOMY, [facility]. TONSILLECTOMY A CHILD. JAW SURGERY. 2003 L4-5 [place]AM[place] [facility] [place]. [place] AND LEFT SHOULDER SURGERY. 2011 RIGHT SHOULDER [place], [facility] [place]EMORRHOIDECTOMY,. 01/23/2016 LEFT ELBOW DECOMPRESSION SURGERY[place] [facility] [place] Hx Anesthesia Reactions: No - Immunization History Date of Tetanus Vaccine: Unk Date of Influenza Vaccine: Fall 2014 Infectious Disease History: No Infectious Disease History: Denies: Traveled Outside the [place] in Last 30 Days - Family History Known Family History: Negative: Renal Disease, Blood Disorder - Social History Occupation: Employed Part-time, Works From/At Home Lives: Dormitory/Roommates Alcohol Use: None Hx Substance Use: Yes Substance Use Type: Reports: Marijuana, Synthetic Drugs, Prescribed Hx Tobacco Use: No Smoking Status (MU): Never Smoked Tobacco Have You Smoked in the Last Year: No Household Exposure: No Review of Systems Negative: Fever, Chills Positive: Cough - non-productive Positive: Abdominal Pain - LLQ, Diarrhea, Nausea. Negative: Vomiting Positive: no symptoms reported Neurological: Negative - decrease in appetite Negative: Headache, Weakness All Other Systems Reviewed And Are Negative: Yes Physical Exam - Summary Physical Exam Summary: Constitutional: Well-developed, Well-nourished, Alert. (-) Distressed Skin: Warm, Dry HENT: Normocephalic; Atraumatic Eyes: Conjunctiva normal Neck: Musculoskeletal ROM normal neck. (-) JVD, (-) Stridor, (-) Nuchal rigidity Cardio: Rhythm regular, rate normal, Heart sounds normal; Intact distal pulses; Radial pulses are 2+ and symmetric. (-) Murmur Pulmonary/Chest wall: Effort normal. (-) Respiratory distress, (-) Wheezes, (-) Rales Abd: Soft, LLQ tenderness with voluntary guarding, RLQ rebound, also RLQ appendectomy scarring, (-) Distension, Musculoskeletal: (-) Edema Lymph: (-) Cervical adenopathy Neuro: Alert, Oriented x3 but intermittent repetitive questioning Psych: Mood and affect Normal Triage Information Reviewed: Yes Vital Signs On Initial Exam: Initial Vitals Temp Pulse Resp BP Pulse Ox 98.1 F 74 18 171/93 98 11/03/18 14:46 11/03/18 14:46 11/03/18 14:46 11/03/18 14:46 11/03/18 14:46 Vital Signs Reviewed: Yes Diagnostics - Vital Signs Vital Signs Temp Pulse Resp BP Pulse Ox 11/03/18 14:46 98.1 F 74 18 171/93 98 - Laboratory Lab Results: Lab Results 11/03/18 Range/Units 15:28 WBC 11.0 H (3.5-10.8) 10^3/uL RBC 5.55 H (4.18-5.48) 10^6 /uL Hgb 15.2 (14.0-18.0) g/dL Hct 46 (42-52) % MCV 82 (80-94) fL MCH 27 (27-31) pg MCHC 33 (31-36) g/dL RDW 17 H (10-15) % Plt Count 177 (150-450) 10^3/uL MPV 9.8 (7.4-10.4) fL Neut % (Auto) 89.7 % Lymph % (Auto) 4.8 % Mora % (Auto) 4.9 % Eos % (Auto) 0.2 % Baso % (Auto) 0.4 % Absolute Neuts (auto) 9.9 H (1.5-7.7) 10^3/ul Absolute Lymphs (auto) 0.5 L (1.0-4.8) 10^3/ul Absolute Monos (auto) 0.5 (0-0.8) 10^3/ul Absolute Eos (auto) 0.0 (0-0.6) 10^3/ul Absolute Basos (auto) 0.0 (0-0.2) 10^3/ul Absolute Nucleated RBC 0.0 10^3/ul Nucleated RBC % 0.1 Result Diagrams: 11/03/18 15:28 11/03/18 15:28 Lab Statement: Any lab studies that have been ordered have been reviewed, and results considered in the medical decision making process. - EKG 1532 Cardiac Rate: NL - 61 BPM EKG Rhythm: Sinus Rhythm ST Segment: Normal Ectopy: None Summary of EKG Findings: EKG at 1532 reveals normal sinus rhythm 61 BPM, nml axis, nml intervals. No STEMI. No acute changes. Interpreted by Dr. Pineda at 1538 11/03/18. Re-Evaluation - Re-Evaluation First Eval Re-Evaluation Time: 17:25 Change: Worse Comment: The pt states that he currently has a headache (chronic, no new symptoms, hx of similar in past) and that he feels nauseous. He started vomiting and was given Reglan. Second Eval Re-Evaluation Time: 18:50 Comment: He reports his nausea is better, states he has daily headaches, this is not more severe than normal. Patient requesting medication for his restless leg. Patient has been intermittently repetitive with questioning, and wandering in the halls. We'll discuss with the hospitalist team about a CT head. We'll hold off at this time given the contrast and he get a CT head in 6 hours Third Eval Re-Evaluation Time: 19:21 Comment: will check head CT for AMS w/u Abdominal Pain Male Course/Dx - Course Course Of Treatment: 78-year-old male with a history of an appendectomy presents with left lower quadrant pain. Physical exam of the well-appearing male, left lower quadrant tenderness and right rebound tenderness, voluntary guarding. Afebrile. Check labs including a CBC to assess for infection, CMP. Check a CT abdomen and pelvis to rule out diverticulitis. Denies urinary symptoms but check UA. - Diagnoses Provider Diagnoses: Diverticulitis - Provider Notifications Discussed Care Of Patient With: Jorge Luis Lovell Time Discussed With Above Provider: 18:47 Instructed by Provider To: Admit As Inpatient Admit/Transition Orders Completed By ED Provider: Yes Discharge - Sign-Out/Discharge Documenting (check all that apply): Patient Departure - admitted Patient Received Moderate/Deep Sedation with Procedure: No - Discharge Plan Condition: Stable Disposition: ADMITTED TO [facility] Referrals: King Aponte MD [Primary Care Provider] - - Billing Disposition and Condition Condition: STABLE Disposition: Admitted to [facility] - Attestation Statements Document Initiated by Scribe: Yes Documenting Scribe: Lazaro Fenton Provider For Whom Scribe is Documenting (Include Credential): Frank Pineda MD Scribe Attestation: Lazaro Flaherty scribed for Frank Pineda MD on 11/03/18 at 1921. Scribe Documentation Reviewed: Yes Provider Attestation: The documentation as recorded by the scribeLazaro accurately reflects the service I personally performed and the decisions made by me, Frank Pineda MD Status of Scribe Document: Viewed
[2018-11-03 15:57] LABS: ALT 25 U/L (7-52); AST 21 U/L (13-39); Albumin 4.6 g/dL (3.2-5.2); Albumin/Globulin Ratio 1.8 (1-3); Alkaline Phosphatase 85 U/L (34-104); Anion Gap 9 mmol/L (2-11); BUN/Creatinine Ratio 18.2 (8-20); Blood Urea Nitrogen 20 mg/dL (6-24); C Reactive Protein 7.34 mg/L (<8.01); CO2 Carbon Dioxide 26 mmol/L (22-32); Calcium 9.8 mg/dL (8.6-10.3); Chloride 104 mmol/L (101-111); EGFR African American 78.7 (>60); EGFR Non-African American 65.1 (>60); Globulin 2.5 g/dL (2-4); Glucose 111 mg/dL (70-100); Potassium 4.3 mmol/L (3.5-5.0); Sodium 139 mmol/L (135-145); Total Protein 7.1 g/dL (6.4-8.9)
[2018-11-03] MEDS ORDERED: Iohexol 300* (CONTRAST) 10 ML SDV IV ONE (16:05)
[2018-11-03] MEDS ORDERED: Acetaminophen TAB* 325 MG PO ONE (16:49)
[2018-11-03] MEDS ORDERED: Morphine 4 MG/ML VIAL (1 ml) 4 MG/ML VIAL IV ONE (17:06)
[2018-11-03] MEDS ORDERED: Metoclopramide IV* 5 MG/ML 2 ML VIAL IV SLOW PU ONE (17:24)
[2018-11-03] MEDS ORDERED: diPHENhydraMINE IV* 50 MG/ML 1 ml VIAL (BENADRYL) SLOW PUSH ONE (17:41)
[2018-11-03] MEDS ORDERED: ED cefTRIAXone 1 GM/50 ML 1 GM/50 ML PREMIX.SET IVPB ONE (18:34)
[2018-11-03] MEDS ORDERED: metroNIDAZOLE IV 500 MG/100ML* 500 MG/100 ML BAG IVPB ONE (18:35)
[2018-11-03] MEDS ORDERED: cefTRIAXone(*) 1 GM in NS 0.9% 50 ML* 50 ML IVPB ONE (18:50)
[2018-11-03] MEDS ORDERED: Ropinirole TAB* 0.5 MG TAB PO ONE ×2 (19:01→20:03)
[2018-11-03] MEDS ORDERED: Magnesium Hydroxide LIQ* 30 ML UDC PO ONE (20:17)
[2018-11-03 20:28] LABS: INR 1.11 (0.82-1.09)
[2018-11-03] MEDS: Glycerin ADULT SUPP PR ONE ×2 (20:41→20:49)
[2018-11-03] MEDS ORDERED: Spironolactone/HCTZ 25-25 MG* 1 TAB PO PRN (21:01)
[2018-11-03] MEDS ORDERED: Fluticasone NASAL SPRAY 50MCG* 16 gm SPRAY BTL BOTH NARES PRN (21:01)
[2018-11-03] MEDS ORDERED: Epinastine 0.05% OPHTH(NF) 5 ML BTL BOTH EYES PRN (21:01)
[2018-11-03] MEDS ORDERED: Warfarin TAB(*) 2.5 MG PO SCH (22:00)
[2018-11-03] MEDS: rOPINIRole TAB* 1 MG PO PRN (22:47)
[2018-11-03] MEDS: Polyethylene Glycol 3350* 17 GM PACKET PO SCH (22:47)
[2018-11-03] MEDS: Ciprofloxacin 400MG IVPREMIX(* 400 MG/200 ML BAG IVPB SCH (22:49)
[2018-11-03] MEDS: Ondansetron TAB* 4 MG PO PRN (23:04)
[2018-11-03] MEDS: Morphine ORAL.SOLN 10 mg* 2 MG/ML UDC 5 ml PO PRN (23:18)
[2018-11-03] MEDS ORDERED: Warfarin TAB(*) 4 MG PO ONE (23:30)
[2018-11-04] MEDS: NS 0.9% 1000 ML** 1,000 ML IV SCH ×2 (00:04→13:38)
--- NOTE | 2018-11-04 00:32 | HP ---
CC: King Aponte MD * HISTORY AND PHYSICAL: DATE OF ADMISSION: 11/03/18 CHIEF COMPLAINT: Left lower quadrant abdominal pain. HISTORY OF PRESENT ILLNESS: This is a 78-year-old male with past medical history of hypertension, previously admitted with confusion in May 2018 although the reason for confusion at that point was unclear, also history of benign prostatic hypertrophy, asthma, restless leg syndrome, spinal stenosis, migraine, and history of DVT, here due to left lower quadrant abdominal pain. The patient stated that since yesterday, he has been having left lower abdominal pain, nonradiating, severe intensity, and has not had a bowel movement and was accompanied by nausea, but no vomiting. He denies any other diarrhea. He was constantly complaining about his restless legs stating that he was never treated for anything even though the ER physician had given him his ropinirole, he kept saying he was never given. He seemed to have a very confused state and was constantly needed to be reoriented. So, his history was noted to be unreliable. I did try to contact Marlene Mena, that is listed as emergency contact, but the phone was not answering and kept coming as engaged. I also called [phone], which the ER staff stated that is the person who brought the patient in and I left 2 voice mails, but no reply yet. As mentioned, the patient is confused and constantly needed to be reoriented and this appears to be similar in nature to what he did 6 months ago when he was admitted in May. His focus constantly switched to his restless legs and he starts wandering off around the emergency room and keeps saying that he was never taken care of. So, rest of his history was obtained by reviewing his records as the patient was an unreliable historian. PAST MEDICAL HISTORY: Hypertension; history of DVT, diagnosed in 2012 on the left leg; history of benign prostatic hypertrophy, asthma, restless leg syndrome , spinal stenosis, migraine, chronic pain syndrome, on multiple pain medications ; irritable bowel syndrome, appears to be constipation type; previous history of iron deficiency anemia, no longer taking iron. PAST SURGICAL HISTORY: He stated that he has had an appendectomy many years ago. He also stated that he has had a torn biceps which was surgically repaired , he thinks it is on the left side, but there was no surgical scar on either side of his arms. HOME MEDICATIONS: As documented in the ER chart included: 1. Ropinirole 1 mg oral twice a day p.r.n. 2. Vitamin B complex 1 tablet oral daily. 3. Spironolactone with hydrochlorothiazide 25/25 one tablet oral daily listed as p.r.n. for fluid retention. 4. Pseudoephedrine oral daily. 5. Mometasone intranasal p.r.n. for nasal congestion. 6. Clarinex 5 mg oral daily. 7. Tylenol every 6 hours p.r.n. for mild pain. 8. Vitamin D3 400 units oral daily. 9. Melatonin with pyridoxine 1 tablet oral daily at bedtime. 10. Sumatriptan 100 mg daily p.r.n. for headache. 11. MiraLAX 17 g packet oral daily. 12. Xyzal 5 mg oral daily. 13. Morphine sulphate 15 to 30 mg 4 times a day p.r.n. for mild pain. 14. Elestat 0.05% ophthalmic solution 1 to 2 drops both eyes b.i.d. p.r.n. 15. Zofran 4 mg p.o. q.6 hours p.r.n. 16. Montelukast 10 mg daily at bedtime. 17. Klonopin 0.5 mg p.o. b.i.d. p.r.n. 18. Coumadin 1.25 mg oral daily. 19. Promethazine 25 mg every 6 hours p.r.n. for nausea, vomiting. ALLERGIES: The patient is documented to have allergies to BUSPIRONE, which caused unknown reaction, CAT and DOG DANDER, and HORSE or EQUINE containing products give him hay fever, and TESTOSTERONE gives him allergies and redness. FAMILY HISTORY: Noncontributory at his age. SOCIAL HISTORY: He denies any smoking or alcohol use. 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 He listed his roommate, Marlene Mena as the emergency contact and he wants to be full code. He denies any drug, but stated that he had tried smoking pot about 20 to 30 years ago. REVIEW OF SYSTEMS: The patient is unreliable with his history, but his main focus at this point was his left lower quadrant pain, some nausea, and wanting to go to the bathroom, but unable to do so, and also his restless legs. PHYSICAL EXAMINATION GENERAL: The patient is awake, alert, and oriented to person, place, he stated it was [facility], but then he stated that name was changed to [facility]. With respect to month and time, he is unaware. He basically stated that he is not sure. VITAL SIGNS: In the ER, BP was documented at 145/98, temperature 98 degrees Fahrenheit, heart rate 67, respiration rate 18, saturating 98% on room air. HEAD AND NECK: Atraumatic, normocephalic. Bilateral pupils were reactive. Oral mucosa was moist. Neck supple. No jugular venous distention. LUNGS: Clear to auscultation bilaterally. No wheezing, rhonchi, or rales. HEART: S1, S2. Regular rate and rhythm. ABDOMEN: Minimally distended with tenderness mostly around the left lower quadrant. EXTREMITIES: No cyanosis, clubbing or edema. DIAGNOSTIC STUDIES/LAB DATA: CBC showed minimally elevated white count of 11.0 , hemoglobin and hematocrit shows stable, platelet count was noted to be 177. Coagulation profile was subtherapeutic INR at 1.11. Comprehensive metabolic panel was unremarkable. CT abdomen and pelvis was read as severe constipation with mild sigmoid diverticulitis. A brain CT was also performed due to his memory impairment, which showed no acute intracranial abnormalities, no interval changes when compared to his previous brain CT from 05/19. EKG showed sinus rhythm at 61 beats per minute without any ST elevation. IMPRESSION: This is a 78-year-old male with past medical history of hypertension; history of DVT, on Coumadin, but subtherapeutic INR; history of benign prostatic hypertrophy; severe restless leg syndrome; chronic pain syndrome, on multiple medications; irritable bowel syndrome; here with constipation, left lower quadrant pain and CT suggestive of diverticulitis and also noted to have some confusion. I could not obtain any collateral information at this point regarding if the patient has this baseline confusion all the time. We will try to obtain records from his family. We will try to call back both the contacts listed in the computer, Marlene Mena and Shanelle who apparently brought the patient in at phone #[phone] in the morning and obtain additional history. ASSESSMENT AND PLAN: 1. Left lower quadrant pain secondary to diverticulitis. We will start the patient on Cipro, Flagyl and we will also keep the patient n.p.o. for now given his nausea and advance diet as tolerated in the morning. We will give glycerin suppository along with milk of magnesium and MiraLAX, but we will increase the dose of MiraLAX to twice a day to see if the patient will have some bowel movement. 2. History of restless leg syndrome. Restart his ropinirole. 3. History of chronic pain syndrome. We will restart his pain medications. 4. Use of benzodiazepines at home, unclear. We will try to obtain and review the records from PCP. 5. DVT prophylaxis. The patient is already on Coumadin, but it is subtherapeutic at this point. We will continue the current dosage of Coumadin as the patient is going to be receiving both Flagyl and Cipro, which could increase the therapeutic efficacy of Coumadin. Repeat INR on a daily basis to adjust his Coumadin level. 6. Confusion with memory impairment, likely some underlying dementia. We will get more collateral information in the morning and also get records from his PCP. [id number]/[facility] #: [id number] DELON
[2018-11-04 02:22] LABS: Urine Appearance Clear; Urine Bilirubin Negative (Negative); Urine Blood Negative (Negative); Urine Color Yellow; Urine Glucose Negative (Negative); Urine Ketones Trace (Negative); Urine Nitrite Negative (Negative); Urine Protein Negative (Negative); Urine Specific Gravity 1.025 (1.010-1.030); Urine Urobilinogen Negative (Negative)
[2018-11-04] MEDS: Morphine ORAL.SOLN 10 mg* 2 MG/ML UDC 5 ml PO PRN ×4 (04:05→21:20)
[2018-11-04] MEDS: metroNIDAZOLE IV 500 MG/100ML* 500 MG/100 ML BAG IVPB SCH ×3 (04:07→20:30)
[2018-11-04] MEDS: Ondansetron TAB* 4 MG PO PRN ×3 (05:11→21:21)
[2018-11-04] MEDS: rOPINIRole TAB* 1 MG PO PRN ×2 (05:32→17:03)
[2018-11-04 06:43] LABS: ABS Eosinophils 0.1 10^3/ul (0-0.6); ABS Lymphocytes 0.6 10^3/ul (1.0-4.8); ABS Monocytes 0.9 10^3/ul (0-0.8); Eosinophil % 1.6 %; Hematocrit 40 % (42-52); Hemoglobin 13.3 g/dL (14.0-18.0); Lymphocyte % 6.5 %; Mean Corpuscular HGB Conc 33 g/dL (31-36); Mean Corpuscular Hemoglobin 27 pg (27-31); Mean Corpuscular Volume 81 fL (80-94); Mean Platelet Volume 10.1 fL (7.4-10.4); Platelet Count 143 10^3/uL (150-450); Red Blood Count 4.92 10^6 /uL (4.18-5.48); Red Cell Distribution Width 17 % (10-15); White Blood Count 8.6 10^3/uL (3.5-10.8)
[2018-11-04 06:56] LABS: INR 1.23 (0.82-1.09)
[2018-11-04 07:03] LABS: Calcium 8.8 mg/dL (8.6-10.3); EGFR African American 81.3 (>60); EGFR Non-African American 67.2 (>60); Potassium 3.8 mmol/L (3.5-5.0)
[2018-11-04] MEDS: Cholecalciferol TAB* 400 UNIT PO SCH (09:48)
[2018-11-04] MEDS: Polyethylene Glycol 3350* 17 GM PACKET PO SCH ×2 (09:48→20:50)
[2018-11-04] MEDS: Ciprofloxacin 400MG IVPREMIX(* 400 MG/200 ML BAG IVPB SCH (10:16)
[2018-11-04] MEDS ORDERED: Warfarin TAB(*) 4 MG PO ONE (17:00)
[2018-11-04] MEDS: Cetirizine* 10 MG TAB PO SCH (17:51)
[2018-11-04] MEDS ORDERED: Morphine ORAL.SOLN 10 mg* 2 MG/ML UDC 5 ml PO PRN (18:20)
--- NOTE | 2018-11-04 18:29 | PN ---
Subjective Date of Service: 11/04/18 Interval History: Received call from RN that patient was frequently repeating himself regarding lower abd pain and frequently calling for pain medications even though he had just received pain medications. In addition, RN later called reporting that during infusion of Cipro patient started to have irritation and redness at IV site. On assessment by this pattern chart writer patient states "by the way I have lower abd pain" on 3 occasions. Discussed abd pain at length each time. Patient denies nausea, vomiting, diarrhea, fever, chills, recently illness. Objective Active Medications: Cetirizine HCl (Zyrtec*) 10 mg PO QPM [facility]; Protocol Last Admin: 11/04/18 17:51 Dose: 10 mg Cholecalciferol (Vitamin D Tab*) 400 unit PO DAILY [facility] Last Admin: 11/04/18 09:48 Dose: 400 unit Epinastine HCl (Elestat 0.05% Opth Marcia (Nf)) 1 drop BOTH EYES BID PRN; Protocol PRN Reason: ITCHING Fluticasone Propionate (Flonase Nasal [place] 50mcg*) 1 spray BOTH NARES BID PRN PRN Reason: CONGESTION HCTZ/Spironolactone (Aldactazide 25-25*) 1 tab PO DAILY PRN PRN Reason: FLUID RETENTION Sodium Chloride (Ns 0.9% 1000 Ml) 1,000 mls @ 100 mls/hr IV PER RATE [facility] Last Admin: 11/04/18 13:38 Dose: 100 mls/hr Metronidazole/Sodium Chloride (Flagyl 500 Mg Ivpb*) 500 mg in 100 mls @ 100 mls /hr IVPB Q8H [facility] Last Admin: 11/04/18 13:38 Dose: 100 mls/hr Ceftriaxone Sodium 1 gm/ (Sodium Chloride) 50 mls @ 100 mls/hr IVPB Q24H [facility] Melatonin (Melatonin) 3 mg PO BEDTIME [facility] Montelukast Sodium (Singulair Tab*) 10 mg PO BEDTIME [facility] Morphine Sulfate (Morphine Oral.Soln 10 Mg*) 30 mg PO QID PRN PRN Reason: PAIN - SEVERE Morphine Sulfate (Morphine Oral.Soln 10 Mg*) 15 mg PO QID PRN PRN Reason: PAIN - MODERATE Ondansetron HCl (Zofran Tab*) 4 mg PO Q6H PRN PRN Reason: NAUSEA Last Admin: 11/04/18 11:07 Dose: 4 mg Pharmacy Profile Note (Coumadin Daily Reminder*) 1 note FOLLOW UP 1700 [facility] Last Admin: 11/04/18 17:23 Dose: Not Given Pharmacy Profile Note (Coumadin Per Pharmacy*) 1 note FOLLOW UP .PER PHARMACY PROTOC [facility]; Protocol Polyethylene Glycol/Electrolytes (Miralax*) 17 gm PO BID [facility] Last Admin: 11/04/18 09:48 Dose: 17 gm Ropinirole HCl (Requip Tab*) 1 mg PO BID PRN PRN Reason: RESTLESS LEG Last Admin: 11/04/18 17:03 Dose: 1 mg Vital Signs - 8 hr 11/04/18 11/04/18 11/04/18 11:18 13:39 14:55 Temperature 97.5 F 98.4 F Pulse Rate 77 77 Respiratory 18 16 16 Rate Blood Pressure 130/74 131/71 (mmHg) O2 Sat by Pulse 95 94 Oximetry 11/04/18 16:29 Temperature Pulse Rate Respiratory 16 Rate Blood Pressure (mmHg) O2 Sat by Pulse Oximetry Oxygen Devices in Use Now: None Appearance: Comfortable, NAD Eyes: No Scleral Icterus Ears/Nose/Mouth/Throat: Clear Oropharnyx, Mucous Membranes Moist Neck: NL Appearance and Movements; NL JVP Respiratory: Symmetrical Chest Expansion and Respiratory Effort, Clear to Auscultation Cardiovascular: NL Sounds; No Murmurs; No JVD, RRR, No Edema Abdominal: - - Soft. Tender to lower quads bilaterally. BS normal Lymphatic: No Cervical Adenopathy Extremities: No Edema Skin: No Rash or Ulcers Neurological: Alert and Oriented x 3, NL Sensation, NL Muscle Strength and Tone , - - Cranial nerves grossly intact. No drift. Coordination intact. Nutrition: - - NPO. Result Diagrams: 11/04/18 06:26 11/04/18 06:26 Additional Lab and Data: Laboratory Results - last 24 hr 11/03/18 11/04/18 11/04/18 15:25 02:11 06:26 WBC RBC Hgb Hct MCV MCH MCHC RDW Plt Count MPV Neut % (Auto) Lymph % (Auto) Dougherty % (Auto) Eos % (Auto) Baso % (Auto) Absolute Neuts (auto) Absolute Lymphs (auto) Absolute Monos (auto) Absolute Eos (auto) Absolute Basos (auto) Absolute Nucleated RBC Nucleated RBC % INR (Anticoag Therapy) 1.11 H Sodium 137 Potassium 3.8 Chloride 107 Carbon Dioxide 24 Anion Gap 6 BUN 16 Creatinine 1.07 Est GFR ( Amer) 81.3 Est GFR (Non-Af Amer) 67.2 BUN/Creatinine Ratio 15.0 Glucose 101 H Calcium 8.8 Ammonia Urine Color Yellow Urine Appearance Clear Urine pH 5.0 Ur Specific [place] 1.025 Urine Protein Negative Urine Ketones Trace A Urine Blood Negative Urine Nitrate Negative Urine Bilirubin Negative Urine Urobilinogen Negative Ur Leukocyte Esterase Negative Urine Glucose Negative 11/04/18 11/04/18 11/04/18 06:26 06:26 08:42 WBC 8.6 RBC 4.92 Hgb 13.3 L Hct 40 L MCV 81 MCH 27 MCHC 33 RDW 17 H Plt Count 143 L MPV 10.1 Neut % (Auto) 81.1 Lymph % (Auto) 6.5 Dougherty % (Auto) 10.6 Eos % (Auto) 1.6 Baso % (Auto) 0.2 Absolute Neuts (auto) 7.0 Absolute Lymphs (auto) 0.6 L Absolute Monos (auto) 0.9 H Absolute Eos (auto) 0.1 Absolute Basos (auto) 0.0 Absolute Nucleated RBC 0.0 Nucleated RBC % 0.0 INR (Anticoag Therapy) 1.23 H Sodium Potassium Chloride Carbon Dioxide Anion Gap BUN Creatinine Est GFR ( Amer) Est GFR (Non-Af Amer) BUN/Creatinine Ratio Glucose Calcium Ammonia TNP Urine Color Urine Appearance Urine pH Ur Specific [place] Urine Protein Urine Ketones Urine Blood Urine Nitrate Urine Bilirubin Urine Urobilinogen Ur Leukocyte Esterase Urine Glucose 11/04/18 13:04 WBC RBC Hgb Hct MCV MCH MCHC RDW Plt Count MPV Neut % (Auto) Lymph % (Auto) Dougherty % (Auto) Eos % (Auto) Baso % (Auto) Absolute Neuts (auto) Absolute Lymphs (auto) Absolute Monos (auto) Absolute Eos (auto) Absolute Basos (auto) Absolute Nucleated RBC Nucleated RBC % INR (Anticoag Therapy) Sodium Potassium Chloride Carbon Dioxide Anion Gap BUN Creatinine Est GFR ( Amer) Est GFR (Non-Af Amer) BUN/Creatinine Ratio Glucose Calcium Ammonia 42 Urine Color Urine Appearance Urine pH Ur Specific [place] Urine Protein Urine Ketones Urine Blood Urine Nitrate Urine Bilirubin Urine Urobilinogen Ur Leukocyte Esterase Urine Glucose Microbiology and Other Data: . Assess/Plan/Problems-Billing Assessment: 78 yr old male with pmh of htn, dvt, bph, asthma, rls, spinal stenosis, migraine , chronic pain, ibs, iron deficiency anemia; who presented to ED with abd pain - Patient Problems (1) Abdominal pain Comment: - CT revealed severe constipation with mild diverticulitis - Cont Flagyl. Patient had local reaction to cipro therefore changed to rocephin - Cont bowel medications. (2) Forgetfulness Comment: - Patient lives with female friend who is out of the country and has been for at least one week - Per outpatient note this friend sets up patient medications - Concern for compliance - Social work consulting - Ammonia wnl - Neuro exam benign. - Dementia? - Requested records from PCP (3) Chronic pain Comment: - 2/2 spinal stenosis - Nurse verified dosing with pharmacy and I verified with [employer] TEACH[employer]. Patient home dose of Morphine is 15 mg ot 30 mg QID for pain - Given severe constipation I will continue 15 mg Morphine QID, but hold on increasing due to risk of continued constipation (4) Constipation SNOMED Code(s): 11455827 Comment: - Continue aggressive bowel regmien - Cont reduced dose of home Morphine (5) DVT prophylaxis Comment: - Warfarin per pharmacy (6) Full code status Comment: Attending: Renita Lovell
[2018-11-04] MEDS: cefTRIAXone(*) 1 GM in NS 0.9% 50 ML* 50 ML IVPB SCH (19:30)
[2018-11-04] MEDS: Montelukast Sodium TAB* 10 MG PO SCH (20:50)
[2018-11-04] MEDS: Melatonin 3 MG TAB PO SCH (20:50)
[2018-11-04] MEDS ORDERED: Sodium Phosphate ADULT ENEMA* 118 ml bottle PR ONE (21:50)
[2018-11-05] MEDS: Morphine ORAL.SOLN 10 mg* 2 MG/ML UDC 5 ml PO PRN ×3 (01:50→22:31)
[2018-11-05] MEDS: rOPINIRole TAB* 1 MG PO PRN (01:54)
[2018-11-05] MEDS: metroNIDAZOLE IV 500 MG/100ML* 500 MG/100 ML BAG IVPB SCH ×3 (03:02→22:33)
[2018-11-05] MEDS: Acetaminophen TAB* 325 MG PO PRN ×3 (03:02→15:48)
[2018-11-05] MEDS: NS 0.9% 1000 ML** 1,000 ML IV SCH ×2 (03:40→15:50)
[2018-11-05 07:34] LABS: ABS Eosinophils 0.3 10^3/ul (0-0.6); ABS Lymphocytes 0.6 10^3/ul (1.0-4.8); ABS Monocytes 0.8 10^3/ul (0-0.8); ABS Neutrophils 4.8 10^3/ul (1.5-7.7); Eosinophil % 4.3 %; Hematocrit 38 % (42-52); Hemoglobin 12.6 g/dL (14.0-18.0); Lymphocyte % 9.3 %; Mean Corpuscular HGB Conc 33 g/dL (31-36); Mean Corpuscular Hemoglobin 28 pg (27-31); Mean Corpuscular Volume 83 fL (80-94); Mean Platelet Volume 10.6 fL (7.4-10.4); Nucleated Red Blood Cells % 0.2; Platelet Count 129 10^3/uL (150-450); Red Cell Distribution Width 17 % (10-15); White Blood Count 6.5 10^3/uL (3.5-10.8)
[2018-11-05 07:40] LABS: INR 2.57 (0.82-1.09)
[2018-11-05 07:53] LABS: Albumin 3.7 g/dL (3.2-5.2); Albumin/Globulin Ratio 1.8 (1-3); BUN/Creatinine Ratio 10.9 (8-20); Calcium 8.4 mg/dL (8.6-10.3); EGFR African American 86.9 (>60); EGFR Non-African American 71.8 (>60); Globulin 2.1 g/dL (2-4); Potassium 3.6 mmol/L (3.5-5.0); Total Bilirubin 0.7 mg/dL (0.2-1.0); Total Protein 5.8 g/dL (6.4-8.9)
[2018-11-05] MEDS: Cholecalciferol TAB* 400 UNIT PO SCH (09:01)
[2018-11-05] MEDS: Polyethylene Glycol 3350* 17 GM PACKET PO SCH ×2 (09:22→20:35)
[2018-11-05 10:43] LABS: TSH (Thyroid Stimulating Horm) 1.38 mcIU/mL (0.34-5.60)
--- NOTE | 2018-11-05 14:26 | CONSULT ---
Consult Consult: S: Psychiatry is asked to evaluate this 78 year old single male for medical decision making capacity. He lives with a roommate in [place] who is currently out of the country. He was upset upon entering the room about having a roommate that made noise. He mentioned that he knows someone that helps him shop for food. He was unable to identify who is able to help him in the time of need. 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 He is admitted to the Hospitalist service following stomach pain. He was unable to name his current medical issues or the treatment plan that his providers discussed with him. Past Psychiatric history: Denied O: 78 year old male appears older than stated age , dressed in hospital gown, Irritable and anxious affect. Intermittent circumstantial thought process. No delusions . He denied suicidal ideation, intent or plan. He denied homicidal ideation intent or plan. perceptual disturbances. Insight and judgment poor. He is aware of the name of his name, current location, not to the month, day and year. He is unable to name the current president and often has word finding difficulty during the encounter. A/P: Capacity: DX: Unspecified Neuro-Cognitive disorder Recommend locating a health care proxy This patient lacks the capacity to make his own medical decisions. He is unable to appreciate the situation, and its consequences of making a certain medical decision. He is also unable to consider alterative treatment options or there possible outcomes. The consulting provider was contacted and informed of the following recommendations, and is in agreement with the plan. Thank you for the consult. Patient informed of follow up care resources and that if he becomes suicidal to call 911. He was also notified 24 hour availability of the ER. As capacity is subject to change at any time, feel free to consult Psychiatry again in the event of any changes. Juno Barton M.D.
[2018-11-05] MEDS: Cetirizine* 10 MG TAB PO SCH (16:42)
[2018-11-05] MEDS ORDERED: Warfarin TAB(*) 2.5 MG PO ONE (17:00)
[2018-11-05] MEDS: rOPINIRole TAB* 1 MG PO SCH ×2 (17:27→22:31)
--- NOTE | 2018-11-05 17:48 | CONS ---
NEUROLOGY CONSULTATION NOTE: DATE OF CONSULT: 11/05/18 CONSULTING PROVIDER: Jeri Galindo NP REASON FOR CONSULT: Memory impairment. CHIEF COMPLAINT: Abdominal pain. 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 He sees Dr. Manjula Alcazar as an outaptient. The patient presented to [facility] on 11/03/18 for abdominal pain. During the hospitalization, the patient was noted to have intermittent confusion state. He required constant reorientation. When discussing these complaints with the patient, he stated that he has had memory problems as long as he remembers. He stated that he recalls having memory problems since he was 7 years of age, but his memory impairment has slightly worsened over the last few years. I personally spoke with the patient's roommate and the healthcare proxy, Marlene Mena, who is currently in [place]. Marlene stated that the patient does have mild memory impairment, mostly short-term memory loss. He has seen Dr. Manjula Alcazar for the same problem. I reviewed [facility] and found a Pepito Cognitive Assessment test that was done on 03/20/18 with a score of 23/30. The patient was being followed for cognitive impairment and possible Parkinson's disease. The patient denied any focal weakness or paresthesias. He has headaches, which he has had in the past. He stated that the head pain is typical for his migraine headaches. He reports pain near the forehead region, 8/10 severity, with associated photo and phonophobia. He does have slight nausea. He stated that usually when he takes sumatriptan, the headaches go away. The patient usually takes ropinirole 6 mg a day and he has only been receiving 1-2 mg a day while he was hospitalized. Furthermore, the patient has recently received a dose of ciprofloxacin and is currently on metronidazole for diverticulitis. Of note, Marlene stated that the patient typically takes 4-6 mg of Ropinirole a day for his restless leg syndrome. PAST MEDICAL HISTORY: Hypertension, cognitive impairment, history of DVT in the left leg, asthma, restless legs syndrome, migraine headaches, chronic pain syndrome, spinal stenosis. PAST SURGICAL HISTORY: Appendectomy, torn biceps which was surgically repaired. MEDICATIONS: 1. Ropinirole 1 mg p.o. b.i.d. as needed. 2. Sumatriptan 100 mg p.o. daily as needed. 3. Montelukast 10 mg p.o. at bedtime. 4. Clonazepam 0.5 mg p.o. b.i.d. as needed. 5. Nasonex 1 spray both nares. 6. Clarinex 5 mg p.o. daily. 7. Vitamin B complex 1 cap p.o. daily. 8. Levocetirizine 5 mg p.o. daily. 9. Morphine 15-30 mg p.o. 4 times daily p.r.n. 10. Ondansetron 4 mg p.o. every 6 hours. 11. Pseudoephedrine 120 mg p.o. daily. 12. Acetaminophen 650 p.o. every 6 hours. 13. Vitamin D 400 units p.o. daily. 14. Melatonin. 15. Warfarin 1.25 tablets p.o. daily. 16. Spironolactone/hydrochlorothiazide 1 tablet p.o. daily p.r.n. 17. Promethazine 25 mg p.o. every 6 hours. 18. Polyethylene glycol 17 g p.o. daily. REVIEW OF SYSTEMS: A 14-point review of systems was obtained and otherwise negative except for what was mentioned in the HPI. PHYSICAL EXAM: Vitals: Temperature of 97.9, pulse of 75, respiratory rate of 16, oxygen saturation of 96%, blood pressure of 129/68. General: Well- nourished, well- developed man, in no acute distress. Head: Atraumatic, normocephalic. Eyes: Conjunctivae/corneas are clear. Neck is supple and symmetrical with no carotid bruits. Respiratory: Clear to auscultation bilaterally with no rhonchi or wheezing. Cardiovascular: Regular rate and rhythm with normal S1, S2. Extremities: No cyanosis. No hammertoes or high arches. Skin: No skin lesions or lacerations. Psych: Affect is flat with normal mood. Easy to establish rapport. Neurological Examination: Mental Status: Awake, alert, and oriented to person, place, time, and general circumstances. Speech and language including expression, repetition, and comprehension were assessed and found to be normal. The patient does have short- term memory loss. Pepito Cognitive Assessment was completed today and the patient scored 25/30. Please keep in mind that the patient's orientation questions were recently asked by Dr. Barton from Psychiatry for which the patient was unable to answer at that time, but was able to answer when I did the assessment. The patient had 1/5 recall where he recalled face only and was unable to connect letters and numbers. Cranial Nerves: Pupils are equal, round, and reactive to light. Extraocular muscles are intact. There is no facial asymmetry. Motor Examination: Normal tone and bulk. No bradykinesia. No cogwheel rigidity. He is able to move all 4 extremities to command. Reflexes trace throughout the upper and lower extremities, 0 at the ankles bilaterally. Sensation is intact to light touch and pinprick throughout. Coordination: Normal dazdut-sm-fvvl and rfme-ph-[id number] testing. Gait: Wide based gait, but no ataxia. DIAGNOSTIC STUDIES/LAB DATA: WBC 6.5, hemoglobin of 12.6, hematocrit of 38, platelet count of 129. INR of 2.57. Sodium 137, chloride of 110, BUN of 11, creatinine 1.01, calcium 8.4. Vitamin B12 of 884. TSH is 1.38. CT of the head completed on 11/03/18 showed no evidence of acute intracranial abnormality. I personally reviewed the study. IMPRESSION AND RECOMMENDATIONS: Mr. Chetan Carter is a 78-year-old man who has history of restless legs syndrome, known cognitive impairment, and migraines headaches, who presented to [facility] for abdominal pain. The patient is being treated for constipation and presumed diagnosis of diverticulitis. During the hospitalization, the patient has episodes of waxing and waning delirium and confusion. Today, his neurological examination is nonfocal other than he has mild cognitive impairment for which he scored a 25/30 on the Pepito Cognitive Assessment. When compared to a previous MoCA exam, the patient scored better than the assessment in 2018 (23/30). However, the orientation questions were answered wrong with the psychiatrist's assessment but were answered correctly when I assessed him. Recent orientation to the date and time may have improved his score. 1. Acute encephalopathy manifesting as delirium in a patient with known cognitive impairment. We certainly established that the patient has underlying mild cognitive impairment at baseline. The etiology is unclear, but it could be early Alzheimer's dementia. Dr. Manjula Alcazar is working him up for possible Parkinson's disease, which can manifest with dementia. Given that he has had episodes of hallucination, another differential diagnosis would be early onset of Lewy body dementia. I suspect his worsening mental status and cognitive dysfunction could be due to the recent hospitalization, infection, antibiotic induced ( ciprofloxacin), or dopaminergic withdrawal. The patient is typically takes ropinirole 6 mg a day and for the past 3 days, he is only taking 1 mg a day. We will increase his ropinirole to at least 3 times a day to prevent any dopamine withdrawal. Other recommendations include practicing delirium measures with frequent reorientation. I spoke to Marlene, his healthcare proxy, and she is willing to set up home care and discuss with neighbors to help Mr. Carter with making sure he takes his medications. Marlene will be back from [place] in 10 days and then she will be able to resume caring for the patient. The patient's TSH and B12 were within normal range. I do not recommend any further neurological workup at this time. Please contact us for any questions or concerns. I recommend followup with Dr. Alcazar in 3-4 months. [id number]/[facility] #: [id number] DELON
--- NOTE | 2018-11-05 18:15 | PN ---
Subjective Date of Service: 11/05/18 Interval History: Earlier today received call from nurse that patient was forgetting he had just received medication and was demanding more medication specifically for RLS. In addition patient was demanding to leave and attempting to call cab. Given concerns for patient safety psych consulted. Given concerns for AMS neurology consulted. Later in the day on assessment by this communications writer. He is cooperative and oriented x3. He reports lower abd pain has improved as it was an "8" yesterday and today is "2". Also reports he had a BM yesterday (confirmed by RN). Denies nausea, vomiting, diarrhea, fever, chills, cp, sob, palpitations. Reports headache and has hx of migraine. Objective Active Medications: Acetaminophen (Tylenol Tab*) 650 mg PO Q6H PRN PRN Reason: .PAIN Last Admin: 11/05/18 15:48 Dose: 650 mg Cetirizine HCl (Zyrtec*) 10 mg PO QPM [facility]; Protocol Last Admin: 11/05/18 16:42 Dose: 10 mg Cholecalciferol (Vitamin D Tab*) 400 unit PO DAILY [facility] Last Admin: 11/05/18 09:01 Dose: 400 unit Epinastine HCl (Elestat 0.05% Opth Marcia (Nf)) 1 drop BOTH EYES BID PRN; Protocol PRN Reason: ITCHING Fluticasone Propionate (Flonase Nasal [place] 50mcg*) 1 spray BOTH NARES BID PRN PRN Reason: CONGESTION HCTZ/Spironolactone (Aldactazide 25-25*) 1 tab PO DAILY PRN PRN Reason: FLUID RETENTION Sodium Chloride (Ns 0.9% 1000 Ml) 1,000 mls @ 100 mls/hr IV PER RATE [facility] Last Admin: 11/05/18 15:50 Dose: 100 mls/hr Metronidazole/Sodium Chloride (Flagyl 500 Mg Ivpb*) 500 mg in 100 mls @ 100 mls /hr IVPB Q8H [facility] Last Admin: 11/05/18 11:29 Dose: 100 mls/hr Ceftriaxone Sodium 1 gm/ (Sodium Chloride) 50 mls @ 100 mls/hr IVPB Q24H [facility] Last Admin: 11/04/18 19:30 Dose: 100 mls/hr Melatonin (Melatonin) 3 mg PO BEDTIME [facility] Last Admin: 11/04/18 20:50 Dose: 3 mg Montelukast Sodium (Singulair Tab*) 10 mg PO BEDTIME [facility] Last Admin: 11/04/18 20:50 Dose: 10 mg Morphine Sulfate (Morphine Oral.Soln 10 Mg*) 15 mg PO BID PRN PRN Reason: PAIN - MODERATE Ondansetron HCl (Zofran Tab*) 4 mg PO Q6H PRN PRN Reason: NAUSEA Last Admin: 11/04/18 21:21 Dose: 4 mg Pharmacy Profile Note (Coumadin Daily Reminder*) 1 note FOLLOW UP 1700 [facility] Last Admin: 11/05/18 16:43 Dose: 1 note Pharmacy Profile Note (Coumadin Per Pharmacy*) 1 note FOLLOW UP .PER PHARMACY PROTOC [facility]; Protocol Polyethylene Glycol/Electrolytes (Miralax*) 17 gm PO BID [facility] Last Admin: 11/05/18 09:22 Dose: Not Given Ropinirole HCl (Requip Tab*) 1 mg PO TID [facility] Last Admin: 11/05/18 17:27 Dose: 1 mg Vital Signs - 8 hr 11/05/18 11/05/18 11/05/18 11:25 11:28 13:22 Temperature 98.1 F Pulse Rate 67 Respiratory 16 16 18 Rate Blood Pressure 132/70 (mmHg) O2 Sat by Pulse 96 Oximetry 11/05/18 15:13 Temperature 98.4 F Pulse Rate 45 Respiratory 20 Rate Blood Pressure 149/75 (mmHg) O2 Sat by Pulse 96 Oximetry Oxygen Devices in Use Now: None Appearance: Comfortable, NAD Eyes: No Scleral Icterus, PERRLA Ears/Nose/Mouth/Throat: Clear Oropharnyx, Mucous Membranes Moist Neck: NL Appearance and Movements; NL JVP Respiratory: Symmetrical Chest Expansion and Respiratory Effort, Clear to Auscultation Cardiovascular: NL Sounds; No Murmurs; No JVD, RRR, No Edema Abdominal: NL Sounds; No Tenderness; No Distention Lymphatic: No Cervical Adenopathy Extremities: No Clubbing, Cyanosis Skin: No Rash or Ulcers Neurological: Alert and Oriented x 3, NL Muscle Strength and Tone Nutrition: - - NPO Result Diagrams: 11/05/18 06:58 11/05/18 06:58 Additional Lab and Data: Laboratory Results - last 24 hr 11/05/18 11/05/18 11/05/18 06:58 06:58 06:58 WBC 6.5 RBC 4.60 Hgb 12.6 L Hct 38 L MCV 83 MCH 28 MCHC 33 RDW 17 H Plt Count 129 L MPV 10.6 H Neut % (Auto) 73.6 Lymph % (Auto) 9.3 [place]cl[place] % (Auto) 12.2 Eos % (Auto) 4.3 Baso % (Auto) 0.6 Absolute Neuts (auto) 4.8 Absolute Lymphs (auto) 0.6 L Absolute Monos (auto) 0.8 Absolute Eos (auto) 0.3 Absolute Basos (auto) 0.0 Absolute Nucleated RBC 0.0 Nucleated RBC % 0.2 INR (Anticoag Therapy) 2.57 H Sodium 137 Potassium 3.6 Chloride 110 Carbon Dioxide 22 Anion Gap 5 BUN 11 Creatinine 1.01 Est GFR ( Amer) 86.9 Est GFR (Non-Af Amer) 71.8 BUN/Creatinine Ratio 10.9 Glucose 96 Calcium 8.4 L Total Bilirubin 0.70 AST 37 ALT 25 Alkaline Phosphatase 73 Ammonia Total Protein 5.8 L Albumin 3.7 Globulin 2.1 Albumin/Globulin Ratio 1.8 Vitamin B12 884 TSH 1.38 11/05/18 09:26 WBC RBC Hgb Hct MCV MCH MCHC RDW Plt Count MPV Neut % (Auto) Lymph % (Auto) [place] % (Auto) Eos % (Auto) Baso % (Auto) Absolute Neuts (auto) Absolute Lymphs (auto) Absolute Monos (auto) Absolute Eos (auto) Absolute Basos (auto) Absolute Nucleated RBC Nucleated RBC % INR (Anticoag Therapy) Sodium Potassium Chloride Carbon Dioxide Anion Gap BUN Creatinine Est GFR ( Amer) Est GFR (Non-Af Amer) BUN/Creatinine Ratio Glucose Calcium Total Bilirubin AST ALT Alkaline Phosphatase Ammonia 49 Total Protein Albumin Globulin Albumin/Globulin Ratio Vitamin B12 TSH Microbiology and Other Data: . Microbiology 11/03/18 19:22 Aerobic Blood Culture - Preliminary Blood Venous No Growth Day 1 Anaerobic Blood Culture - Preliminary No Growth Day 1 11/03/18 19:22 Aerobic Blood Culture - Preliminary Blood Venous No Growth Day 1 Anaerobic Blood Culture - Preliminary No Growth Day 1 Assess/Plan/Problems-Billing Assessment: 78 yr old male with pmh of htn, dvt, bph, asthma, rls, spinal stenosis, migraine , chronic pain, ibs, iron deficiency anemia; who presented to ED with abd pain - Patient Problems (1) Abdominal pain Comment: - Improved today, therefore, will advance diet from NPO to clears - CT revealed severe constipation with mild diverticulitis - Cont Flagyl. Patient had local reaction to cipro therefore changed to rocephin - Had BM. Cont bowel medications. (2) Forgetfulness Comment: - Neurology and Psych consulted and we appreciate their assistance. - Psych reports patient does not have capacity - Neurology reports patient has mild cognitive impairment given MOCA score. Neurologist spoke with HCP who reports this is baseline and they have support set up at home for patient for his safety. - Patient lives HCP and Supervisor Water Soft[employer] Service/Pipe Assembly Worker will be contacting her to discuss safe discharge plan - Social work consulting - Ammonia wnl - Neuro exam benign. (3) Chronic pain Comment: - Per HCP patient only takes his morphine at night, therefore, order changed to reflect home dosing. - 2/2 spinal stenosis - Nurse verified dosing with pharmacy and I verified with [facility]BR[facility]. Patient home dose of Morphine is 15 mg ot 30 mg QID for pain (4) Constipation SNOMED Code(s): 91535458 Comment: - Had BM - Continue bowel regmien given narcotic use (5) DVT prophylaxis Comment: - Warfarin per pharmacy (6) Full code status Comment: Status and Disposition: Inpatient Attending: Evi Sheppard
[2018-11-05] MEDS: cefTRIAXone(*) 1 GM in NS 0.9% 50 ML* 50 ML IVPB SCH (20:34)
[2018-11-05] MEDS: Montelukast Sodium TAB* 10 MG PO SCH (20:35)
[2018-11-05] MEDS: Ondansetron TAB* 4 MG PO PRN (20:35)
[2018-11-05] MEDS: Melatonin 3 MG TAB PO SCH (22:30)
[2018-11-05] MEDS: Tamsulosin CAP* 0.4 MG PO SCH (22:30)
[2018-11-06] MEDS: Ondansetron TAB* 4 MG PO PRN ×2 (02:56→14:30)
[2018-11-06] MEDS: Acetaminophen TAB* 325 MG PO PRN ×2 (02:56→14:30)
[2018-11-06] MEDS: NS 0.9% 1000 ML** 1,000 ML IV SCH ×2 (04:55→18:35)
[2018-11-06 06:01] LABS: ABS Eosinophils 0.4 10^3/ul (0-0.6); ABS Lymphocytes 0.6 10^3/ul (1.0-4.8); ABS Monocytes 0.5 10^3/ul (0-0.8); ABS Neutrophils 3.9 10^3/ul (1.5-7.7); Hematocrit 37 % (42-52); Hemoglobin 12.3 g/dL (14.0-18.0); Lymphocyte % 11.4 %; Mean Corpuscular HGB Conc 34 g/dL (31-36); Mean Corpuscular Hemoglobin 28 pg (27-31); Mean Corpuscular Volume 82 fL (80-94); Mean Platelet Volume 10.4 fL (7.4-10.4); Platelet Count 119 10^3/uL (150-450); Red Blood Count 4.48 10^6 /uL (4.18-5.48); Red Cell Distribution Width 18 % (10-15); White Blood Count 5.4 10^3/uL (3.5-10.8)
[2018-11-06 06:04] LABS: Urine Appearance Clear; Urine Bilirubin Negative (Negative); Urine Blood Negative (Negative); Urine Color Yellow; Urine Glucose Negative (Negative); Urine Ketones 1+ (Negative); Urine Nitrite Negative (Negative); Urine Protein Negative (Negative); Urine Urobilinogen Negative (Negative)
[2018-11-06 06:05] LABS: INR 3.47 (0.82-1.09)
[2018-11-06 06:25] LABS: BUN/Creatinine Ratio 10.2 (8-20); Calcium 8.4 mg/dL (8.6-10.3); EGFR African American 101.9 (>60); EGFR Non-African American 84.2 (>60); Potassium 3.6 mmol/L (3.5-5.0)
[2018-11-06] MEDS: metroNIDAZOLE IV 500 MG/100ML* 500 MG/100 ML BAG IVPB SCH ×4 (07:44→23:12)
[2018-11-06] MEDS: Morphine ORAL.SOLN 10 mg* 2 MG/ML UDC 5 ml PO PRN (07:46)
[2018-11-06] MEDS: Cholecalciferol TAB* 400 UNIT PO SCH (08:37)
[2018-11-06] MEDS: rOPINIRole TAB* 1 MG PO SCH ×3 (08:38→20:44)
[2018-11-06] MEDS: Polyethylene Glycol 3350* 17 GM PACKET PO SCH ×3 (08:40→20:44)
[2018-11-06] MEDS ORDERED: Magnesium Hydroxide LIQ* 30 ML UDC PO PRN (13:38)
[2018-11-06] MEDS ORDERED: Senna TAB 8.6 mg* TAB PO PRN (13:38)
[2018-11-06] MEDS ORDERED: Docusate CAP* 100 MG PO PRN (13:38)
[2018-11-06] MEDS ORDERED: WARFARIN - No Order Today* 1 NOTE MISC FOLLOW UP ONE (17:00)
--- NOTE | 2018-11-06 17:48 | PN ---
Subjective Date of Service: 11/06/18 Interval History: Patient assessed this morning while lying in bed. Patient reports pain in lower abd has greatly improved and patient is interested in advancing diet and being discharged home. Discussed plan to advance diet and d/c home with patient and HCP (on the phone). 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 He reports to Safety Office that he is still feeling abd pain and is concerned about going home since his roommate/HCP is out of the country. This evening received call from RN who reports patient is retaining greater than 400 mls on post void residual scan, Objective Active Medications: Acetaminophen (Tylenol Tab*) 650 mg PO Q6H PRN PRN Reason: .PAIN Last Admin: 11/06/18 14:30 Dose: 650 mg Cetirizine HCl (Zyrtec*) 10 mg PO QPM ROSA ELENA; Protocol Last Admin: 11/05/18 16:42 Dose: 10 mg Cholecalciferol (Vitamin D Tab*) 400 unit PO DAILY ROSA ELENA Last Admin: 11/06/18 08:37 Dose: 400 unit Docusate Sodium (Colace Cap*) 100 mg PO BID PRN PRN Reason: CONSTIPATION Last Admin: 11/06/18 14:00 Dose: 100 mg Epinastine HCl (Elestat 0.05% Opth Marcia (Nf)) 1 drop BOTH EYES BID PRN; Protocol PRN Reason: ITCHING Fluticasone Propionate (Flonase Nasal D[place] 50mcg*) 1 spray BOTH NARES BID PRN PRN Reason: CONGESTION HCTZ/Spironolactone (Aldactazide 25-25*) 1 tab PO DAILY PRN PRN Reason: FLUID RETENTION Sodium Chloride (Ns 0.9% 1000 Ml) 1,000 mls @ 100 mls/hr IV PER RATE ROSA ELENA Last Admin: 11/06/18 04:55 Dose: 100 mls/hr Ceftriaxone Sodium 1 gm/ (Sodium Chloride) 50 mls @ 100 mls/hr IVPB Q24H ROSA ELENA Last Admin: 11/05/18 20:34 Dose: 100 mls/hr Metronidazole/Sodium Chloride (Flagyl 500 Mg Ivpb*) 500 mg in 100 mls @ 100 mls /hr IVPB 0630,1430,2230 ROSA ELENA Last Admin: 11/06/18 14:58 Dose: 100 mls/hr Magnesium Hydroxide (Milk Of Magnesia Liq*) 30 ml PO Q6H PRN PRN Reason: CONSTIPATION Last Admin: 11/06/18 14:00 Dose: 30 ml Melatonin (Melatonin) 3 mg PO BEDTIME [facility] Last Admin: 11/05/18 22:30 Dose: 3 mg Montelukast Sodium (Singulair Tab*) 10 mg PO BEDTIME [facility] Last Admin: 11/05/18 20:35 Dose: 10 mg Morphine Sulfate (Morphine Oral.Soln 10 Mg*) 15 mg PO BID PRN PRN Reason: PAIN - MODERATE Last Admin: 11/06/18 07:46 Dose: 15 mg Ondansetron HCl (Zofran Tab*) 4 mg PO Q6H PRN PRN Reason: NAUSEA Last Admin: 11/06/18 14:30 Dose: 4 mg Pharmacy Profile Note (Coumadin Daily Reminder*) 1 note FOLLOW UP 1700 [facility] Last Admin: 11/05/18 16:43 Dose: 1 note Pharmacy Profile Note (Coumadin Per Pharmacy*) 1 note FOLLOW UP .PER PHARMACY PROTOC [facility]; Protocol Polyethylene Glycol/Electrolytes (Miralax*) 17 gm PO BID [facility] Last Admin: 11/06/18 08:47 Dose: 17 gm Ropinirole HCl (Requip Tab*) 1 mg PO TID [facility] Last Admin: 11/06/18 14:00 Dose: 1 mg Senna (Senokot 8.6 Mg Tab*) 2 tab PO BEDTIME PRN PRN Reason: CONSTIPATION Tamsulosin HCl (Flomax Cap*) 0.4 mg PO BEDTIME [facility] Last Admin: 11/05/18 22:30 Dose: 0.4 mg Vital Signs - 8 hr 11/06/18 11/06/18 09:47 14:42 Temperature 98.1 F Pulse Rate 71 Respiratory 18 17 Rate Blood Pressure 132/67 (mmHg) O2 Sat by Pulse 94 Oximetry Oxygen Devices in Use Now: None Appearance: Comfortable, NAD Eyes: No Scleral Icterus Ears/Nose/Mouth/Throat: Clear Oropharnyx, Mucous Membranes Moist Neck: NL Appearance and Movements; NL JVP Respiratory: Symmetrical Chest Expansion and Respiratory Effort, Clear to Auscultation Cardiovascular: NL Sounds; No Murmurs; No JVD, No Edema Abdominal: NL Sounds; No Tenderness; No Distention Lymphatic: No Cervical Adenopathy Extremities: No Edema Skin: No Rash or Ulcers Neurological: Alert and Oriented x 3, NL Muscle Strength and Tone Nutrition: Taking PO's Result Diagrams: 11/06/18 05:37 11/06/18 05:37 Additional Lab and Data: Laboratory Results - last 24 hr 11/06/18 11/06/18 11/06/18 05:13 05:37 05:37 WBC 5.4 RBC 4.48 Hgb 12.3 L Hct 37 L MCV 82 MCH 28 MCHC 34 RDW 18 H Plt Count 119 L MPV 10.4 Neut % (Auto) 71.7 Lymph % (Auto) 11.4 [place] % (Auto) 9.3 Eos % (Auto) 7.0 Baso % (Auto) 0.6 Absolute Neuts (auto) 3.9 Absolute Lymphs (auto) 0.6 L Absolute Monos (auto) 0.5 Absolute Eos (auto) 0.4 Absolute Basos (auto) 0.0 Absolute Nucleated RBC 0.0 Nucleated RBC % 0.0 INR (Anticoag Therapy) 3.47 H Sodium Potassium Chloride Carbon Dioxide Anion Gap BUN Creatinine Est GFR ( Amer) Est GFR (Non-Af Amer) BUN/Creatinine Ratio Glucose Calcium Urine Color Yellow Urine Appearance Clear Urine pH 6.0 Ur Specific [place] 1.010 Urine Protein Negative Urine Ketones 1+ A Urine Blood Negative Urine Nitrate Negative Urine Bilirubin Negative Urine Urobilinogen Negative Ur Leukocyte Esterase Negative Urine Glucose Negative 11/06/18 05:37 WBC RBC Hgb Hct MCV MCH MCHC RDW Plt Count MPV Neut % (Auto) Lymph % (Auto) [place] % (Auto) Eos % (Auto) Baso % (Auto) Absolute Neuts (auto) Absolute Lymphs (auto) Absolute Monos (auto) Absolute Eos (auto) Absolute Basos (auto) Absolute Nucleated RBC Nucleated RBC % INR (Anticoag Therapy) Sodium 139 Potassium 3.6 Chloride 112 H Carbon Dioxide 20 L Anion Gap 7 BUN 9 Creatinine 0.88 Est GFR ( Amer) 101.9 Est GFR (Non-Af Amer) 84.2 BUN/Creatinine Ratio 10.2 Glucose 94 Calcium 8.4 L Urine Color Urine Appearance Urine pH Ur Specific [place] Urine Protein Urine Ketones Urine Blood Urine Nitrate Urine Bilirubin Urine Urobilinogen Ur Leukocyte Esterase Urine Glucose Microbiology and Other Data: Microbiology 11/03/18 19:22 Aerobic Blood Culture - Preliminary Blood Venous No Growth Day 2 Anaerobic Blood Culture - Preliminary No Growth Day 2 11/03/18 19:22 Aerobic Blood Culture - Preliminary Blood Venous No Growth Day 2 Anaerobic Blood Culture - Preliminary No Growth Day 2 Assess/Plan/Problems-Billing Assessment: 78 yr old male with pmh of htn, dvt, bph, asthma, rls, spinal stenosis, migraine , chronic pain, ibs, iron deficiency anemia; who presented to ED with abd pain - Patient Problems (1) Abdominal pain Comment: - On initial assessment reported improved abd pain therefore diet advanced to soft diet. - CT revealed severe constipation with mild diverticulitis - Cont Flagyl. Patient had local reaction to cipro therefore changed to rocephin - Cont bowel medications. (2) Forgetfulness Comment: - Patient has baseline mild cognitive impairment, therefore, plans should be discussed with patient and HCP. - Neurology and Psych consulted and we appreciate their assistance. - Psych reports patient does not have capacity - Neurology reports patient has mild cognitive impairment given MOCA score. Neurologist spoke with HCP who reports this is baseline and they have support set up at home for patient for his safety. - Patient lives HCP and Tow Motor Driver/Disability Attorney in contact with her to discuss safe discharge plan (3) Chronic pain Comment: - Per HCP patient only takes his morphine at night, therefore, order changed to reflect home dosing. - 2/2 spinal stenosis - Nurse verified dosing with pharmacy and I verified with [facility]. (4) Constipation SNOMED Code(s): 22631649 Comment: - Had BM yesterday and today - Continue bowel regmien given narcotic use (5) DVT prophylaxis Comment: - Warfarin per pharmacy (6) Full code status Comment: Status and Disposition: Inpatient Attending: Evi Sheppard
[2018-11-06] MEDS: Cetirizine* 10 MG TAB PO SCH (17:56)
[2018-11-06] MEDS ORDERED: Morphine ORAL.SOLN 10 mg* 2 MG/ML UDC 5 ml PO PRN (17:57)
[2018-11-06] MEDS: cefTRIAXone(*) 1 GM in NS 0.9% 50 ML* 50 ML IVPB SCH (18:34)
[2018-11-06] MEDS: Tamsulosin CAP* 0.4 MG PO SCH (20:45)
[2018-11-06] MEDS: Melatonin 3 MG TAB PO SCH (20:45)
[2018-11-06] MEDS: Montelukast Sodium TAB* 10 MG PO SCH (20:45)
[2018-11-07 02:09] LABS: Urine Appearance Clear; Urine Bacteria Absent (Absent); Urine Bilirubin Negative (Negative); Urine Blood 1+ (Negative); Urine Color Yellow; Urine Glucose Negative (Negative); Urine Ketones Negative (Negative); Urine Nitrite Negative (Negative); Urine Protein Negative (Negative); Urine Red Blood Cell 1+(3-5/hpf) (Absent); Urine Specific Gravity 1.013 (1.010-1.030); Urine Urobilinogen Negative (Negative); Urine White Blood Cell Trace(0-5/hpf) (Absent)
[2018-11-07] MEDS: Acetaminophen TAB* 325 MG PO PRN ×2 (02:16→08:13)
[2018-11-07] MEDS: metroNIDAZOLE IV 500 MG/100ML* 500 MG/100 ML BAG IVPB SCH (05:58)
[2018-11-07] MEDS: Polyethylene Glycol 3350* 17 GM PACKET PO SCH (08:13)
[2018-11-07] MEDS: Cholecalciferol TAB* 400 UNIT PO SCH (08:13)
[2018-11-07] MEDS: rOPINIRole TAB* 1 MG PO SCH ×2 (08:13→13:53)
[2018-11-07] MEDS: Ondansetron TAB* 4 MG PO PRN (08:50)
[2018-11-07] MEDS: Sodium Phosphate ADULT ENEMA* 118 ml bottle PR ONE ×2 (10:51→11:02)
[2018-11-07 11:07] LABS: INR 1.92 (0.82-1.09)
[2018-11-07 12:27] VITALS: BP 160/82
--- NOTE | 2018-11-07 21:17 | DS ---
AMENDED REPORT NOW INCLUDES DESIGNATED COSIGNER CC: Dr. King Aponte; Dr. Chetna Alcazar * DISCHARGE SUMMARY: DATE OF ADMISSION: 11/03/18 DATE OF DISCHARGE: 11/07/18 PRIMARY CARE PROVIDER: Dr. King Aponte. ATTENDING PHYSICIAN: Dr. Evi Sheppard * (dictated by Stefania Marie NP) PRIMARY DIAGNOSES: 1. Diverticulitis. 2. Acute urinary retention. 3. Acute encephalopathy, superimposed on mild cognitive impairment. SECONDARY DIAGNOSES: 1. Hypertension. 2. Deep vein thrombosis. 3. Chronic pain. 4. Spinal stenosis. 5. Restless leg syndrome. 6. Asthma. 7. Migraine. STUDIES DONE WHILE IN THE HOSPITAL: 1. EKG on 11/03/18 showed normal sinus rhythm with a rate of 61, QTc 404. This EKG appears consistent with previous EKG on file. 2. Abdomen and pelvis CT on 11/03/18 reads as severe constipation, mild sigmoid diverticulitis. 3. Brain CT on 11/03/18 reads as no acute intracranial abnormalities, no interval changes. CONSULTATIONS WHILE IN THE HOSPITAL: 1. Dr. Juno Barton from Psychiatry on 11/05/18. 2. Dr. Yuniel Koch with Neurology on 11/05/18. HISTORY OF PRESENT ILLNESS AND HOSPITAL COURSE: Mr. Carter is a 78-year- old male with past medical history of a mild cognitive impairment, hypertension , DVT, restless leg syndrome, irritable bowel syndrome, and chronic pain who presented to the emergency room on 11/03/18 with complaints of left lower quadrant pain. Please see the history and physical by Dr. Lovell for a complete summary of the events leading up to this hospitalization. In short, the patient reported 1 day of left lower abdominal pain accompanied by nausea, but no diarrhea or vomiting. He appeared very confused in the emergency room and his baseline was unclear as they were not able to get a hold of his healthcare proxy. He had lab work, which was essentially unremarkable, although INR was noted to be subtherapeutic on Coumadin. Due to his symptoms, he was admitted by the hospitalist service. The patient was started on Cipro and Flagyl for his diverticulitis. He was given a bowel regimen for his constipation. The patient subsequently did have an erythema and irritation at his IV site during an infusion of Cipro and so that was discontinued and added as an allergy. He was then placed on ceftriaxone instead. Again, the patient's baseline mental status was not clear and his healthcare proxy was noted to be out of town. The patient was seen by Dr. Barton from Psychiatry who noted that he did not have capacity to make his own medical decisions. He was also seen by Dr. Koch from Neurology who felt as though the patient was experiencing delirium superimposed on his known cognitive impairment, which is currently being worked up by his outpatient neurologist, Dr. Alcazar. He suspected that mental status changes could be due to recent hospitalization, infection, antibiotic induced or dopaminergic withdrawal. The patient did ultimately have some acute urinary retention likely exacerbated by his constipation and history of BPH and so a Israel was placed. The Israel was removed on 11/06/18. The patient did have some difficulty voiding, but was able to eventually void with an insignificant postvoid residual. He has remained constipated, though this morning received a Fleet enema with good effect. At this point, the patient's abdominal pain has resolved and he is anxious to return home. Case management has already spoken with the patient's healthcare proxy who is currently out of town but is agreeable to the patient returning home as she has arranged for other people to stay with him and check on him until she returns. On exam, the patient has no focal neurological deficits. His heart has a regular rate and rhythm without murmurs, rubs, or gallops. His lungs are clear to auscultation without rhonchi , wheezes, or rubs. Abdomen is soft, nontender throughout with normoactive bowel sounds. Physical assessment is otherwise benign. Mr. Carter is stable for discharge today. Vital signs are as follows: Temp 98.0, heart rate 66, respiratory rate 16, oxygen saturation 98% on room air , blood pressure 160/82. DISCHARGE MEDICATIONS: New medications: 1. Augmentin 875 mg p.o. q.8 hours x4 days. 2. Docusate 100 mg p.o. b.i.d. 3. Senna 2 tabs p.o. at bedtime p.r.n. constipation. 4. Tamsulosin 0.4 mg p.o. at bedtime. Changed medications: 1. Warfarin 3 mg p.o. daily (previously was 2.5 or 5 mg daily.) Continued medications: 1. Acetaminophen 650 mg p.o. q.6 hours p.r.n. pain. 2. Cholecalciferol 400 units p.o. daily. 3. Clonazepam 0.5 mg p.o. b.i.d. p.r.n. anxiety. 4. Epinastine 0.05% one to two drops both eyes b.i.d. p.r.n. itching. 5. Levocetirizine 5 mg p.o. daily. 6. Melatonin 1 tab p.o. at bedtime. 7. Mometasone 1 spray both nares b.i.d. p.r.n. congestion. 8. Singulair 10 mg p.o. at bedtime. 9. Morphine 15 to 30 mg p.o. 4 times a day p.r.n. pain. 10. Ondansetron 4 mg p.o. q.6 hours p.r.n. nausea. 11. MiraLAX 17 g p.o. daily. 12. Promethazine 25 mg p.o. q.6 hours p.r.n. nausea, vomiting. 13. ReQuip 1 mg p.o. b.i.d. p.r.n. RLS. 14. Spironolactone/hydrochlorothiazide 25/25 one tab p.o. daily p.r.n. edema. 15. Sumatriptan 100 mg p.o. daily p.r.n. migraine. 16. Vitamin B 1 cap p.o. daily. Discontinued medications: 1. Cetirizine. 2. Pseudoephedrine. DISCHARGE PLAN: Mr. Carter will be discharged home. Activity will be as tolerated. Diet will be regular as tolerated. Medications are noted above. Again, the patient will need a complete 4 days of Augmentin to complete a total of 7 days of antibiotic therapy for his mild diverticulitis. He should be taking a bowel regimen as he does take narcotics pain medications at home. He additionally has been placed on tamsulosin as his acute urinary retention was likely in part due to BPH. Regarding his Coumadin dosing, the patient is noted to be very slightly subtherapeutic today with an INR of 1.92 and was subtherapeutic on admission. There was some confusion as to what dose of warfarin the patient was actually taking at home, though when I spoke with his healthcare proxy today, she reports that he takes either 2.5 or 5 mg a day based on INR and instructions from the PCP. At this point, I think the patient should be taking 3 mg daily. He will need to have his INR closely monitored. I did tell the healthcare proxy that the patient should go to his PCP's office where he normally get his INR drawn and have an INR drawn on either Friday or Friday to determine if he can stay on the 3 mg dose or if this needed to be further adjusted. The patient was noted to be taking cetirizine and levocetirizine and it is not entirely sure why, though he should not take both of these medications together and so I would recommend that he stop taking cetirizine. Again, I did speak with the patient's healthcare proxy at length this morning about medication changes and she is understanding of all these changes at this point and understanding appropriate followup. The patient should follow up with his PCP in the next 4 to 7 days, though again, should have his INR checked on either Friday or Friday. He can follow up with Dr. Alcazar in the next 3 to 4 months. He should return to the emergency room or nearest hospital for any worsening of symptoms, shortness of breath, lightheadedness, dizziness, chest discomfort, high fevers, chills, night sweats , loss of consciousness, or any other worrisome signs or symptoms. DISCHARGE CONDITION: Stable. DISCHARGE DISPOSITION: Home. This is a summarized report of a complex medical history and hospital stay. For further details, please see the entire medical record. TIME SPENT: Approximately 50 minutes were spent on this discharge. STEFANIA MARIE, HARVESTING MANAGER [id number]/CPS #: [id number] DELON
== END 2018-11-07 14:20 | disposition home or self-care (01) | DRG 392 ==
LOC: ED 14:43 → MEDTELE 20:34
PROVIDERS: ADMIT Internal Medicine; ATTEND Internal Medicine
DX: K57.92 Diverticulitis of intestine, part unspecified, without perforation or abscess without bleeding (principal); G93.49 Other encephalopathy; K58.1 Irritable bowel syndrome with constipation; J45.909 Unspecified asthma, uncomplicated; K21.9 Gastro-esophageal reflux disease without esophagitis; M41.9 Scoliosis, unspecified; M48.00 Spinal stenosis, site unspecified; G25.81 Restless legs syndrome; G43.909 Migraine, unspecified, not intractable, without status migrainosus; F32.9 Major depressive disorder, single episode, unspecified; I10 Essential (primary) hypertension; N40.0 Benign prostatic hyperplasia without lower urinary tract symptoms; G89.4 Chronic pain syndrome; F15.90 Other stimulant use, unspecified, uncomplicated; R33.9 Retention of urine, unspecified; G31.84 Mild cognitive impairment of uncertain or unknown etiology; R79.1 Abnormal coagulation profile; Z88.8 Allergy status to other drugs, medicaments and biological substances; Z86.718 Personal history of other venous thrombosis and embolism
CPT/HCPCS: 36415; 70450; 74177; 80048; 80053; 81003; 81015; 82140; 82607; 83605; 83690; 84443; 84484; 85025; 85610; 86140; 87040; 87086; 93005; 99284; A9270-GY; J0696; J0744; J1200; J2270; J2405; J2765; Q9967

== ENCOUNTER 2018-11-08 03:23 | Emergency (ER) | payer MEDICARE ==
--- NOTE | 2018-11-08 03:44 | ED ---
GI/ HPI - HPI Summary HPI Summary: This patient is a 78 year old male presenting to [facility] with a chief complaint of nausea and vomiting. The patient was discharged yesterday on abx for diverticulitis. He states he is unable to keep food down. He says he is unable to manage at home. He reports headache. He denies diarrhea. He did not experiencing vomiting yesterday. He states he still has LLQ pain. - History of Current Complaint Chief Complaint: EDNauseaVomitDiarrh Stated Complaint: NAUSEA AND HEADACHE PER PT Hx Obtained From: Patient Onset/Duration: Started Hours Ago Pain Intensity: 3 - Additional Pertinent History Primary Care Physician: ROBBIN - Allergy/Home Medications Allergies/Adverse Reactions: Allergies Allergy/AdvReac Type Severity Reaction Status Date / Time buspirone [From BuSpar] Allergy Unknown Verified 11/08/18 03:31 Reaction Details cat dander Allergy Hay fever Verified 11/08/18 03:31 ciprofloxacin Allergy Rash Verified 11/08/18 03:31 dog dander Allergy Hay fever Verified 11/08/18 03:31 Horse/Equine Containing Allergy Hay fever Verified 11/08/18 03:31 Products testosterone Allergy Redness Verified 11/08/18 03:31 PMH/Surg Hx/FS Hx/Imm Hx Endocrine/Hematology History: Reports: Hx Anemia - IRON TABLET Denies: Hx Diabetes, Hx Thyroid Disease Cardiovascular History: Reports: Other Cardiovascular Problems/Disorders - DVT 2013-LEFT LEG Denies: Hx Angina, Hx Congestive Heart Failure, Hx Coronary Artery Disease, Hx Deep Vein Thrombosis, Hx Hypercholesterolemia, Hx Hypertension, Hx Myocardial Infarction, Hx Pacemaker/ICD, Hx Valvular Heart Disease Respiratory History: Reports: Hx Asthma - "slight" Denies: Hx Chronic Obstructive Pulmonary Disease (COPD), Hx Lung Cancer GI History: Reports: Hx Gastroesophageal Reflux Disease - CONTROL WITH MEDS, Hx Irritable Bowel - POSSIBLE PER PATIENT, Other GI Disorders - HX BEZOAR 1 YEAR AGO. also slow peristalsis Denies: Hx Gall Bladder Disease, Hx Gastrointestinal Bleed, Hx Ulcer, Hx Urosepsis History: Denies: Hx Kidney Stones, Hx Renal Disease Musculoskeletal History: Reports: Hx Scoliosis, Other Musculoskeletal History - spinal stenosis, and extreme restless leg syndrome Sensory History: Reports: Hx Contacts or Glasses - Reading Denies: Hx Hearing Aid Opthamlomology History: Reports: Hx Contacts or Glasses - Reading Neurological History: Reports: Hx Headaches - SOMETIMES DAILY, MAYBE SIDE EFFECT OF MEDICATION, Hx Migraine - LAST ONE WAS 03/06 - USUALLY 2 TIMES A WEEK Denies: Hx Dementia, Hx Seizures, Hx Transient Ischemic Attacks (TIA) Comment Only: Other Neuro Impairments/Disorders - DYSTHIMIA Psychiatric History: Reports: Hx Depression - CONTROL WITH MED Denies: Hx Anxiety, Hx Panic Disorder, Hx Schizophrenia, Hx Bipolar Disorder - Surgical History Surgery Procedure, Year, and Place: APPENDECTOMY, [facility]. TONSILLECTOMY A CHILD. JAW SURGERY. [place] [facility] [place]. 2011 [place] [facility] [place],. [place]/23/[place]OM[place] [facility] [place] Anesthesia Reactions: No - Immunization History Date of Tetanus Vaccine: Unk Date of Influenza Vaccine: Fall 2014 Infectious Disease History: No Infectious Disease History: Denies: Traveled Outside the [place] in Last 30 Days - Family History Known Family History: Negative: Renal Disease, Blood Disorder - Social History Alcohol Use: None Hx Substance Use: Yes Substance Use Type: Reports: None Hx Tobacco Use: No Smoking Status (MU): Never Smoked Tobacco Have You Smoked in the Last Year: No Review of Systems Positive: Abdominal Pain, Vomiting, Nausea. Negative: Diarrhea Positive: Headache All Other Systems Reviewed And Are Negative: Yes Physical Exam - Summary Physical Exam Summary: VITAL SIGNS: Reviewed. GENERAL: Patient is a well-developed and nourished MALE who is lying comfortable in the stretcher. Patient is not in any acute respiratory distress. HEAD AND FACE: No signs of trauma. No ecchymosis, hematomas or skull depressions. No sinus tenderness. EYES: PERRLA, EOMI x 2, No injected conjunctiva, no nystagmus. EARS: Hearing grossly intact. Ear canals and tympanic membranes are within normal limits. MOUTH: Oropharynx within normal limits. NECK: Supple, trachea is midline, no adenopathy, no JVD, no carotid bruit, no c- spine tenderness, neck with full ROM CHEST: Symmetric, no tenderness at palpation LUNGS: Clear to auscultation bilaterally. No wheezing or crackles. CVS: Regular rate and rhythm, S1 and S2 present, no murmurs or gallops appreciated. ABDOMEN: Soft, LLQ tenderness. Abdominal distention. No rebound no guarding, and no masses palpated. Bowel sounds are hypoactive. EXTREMITIES: FROM in all major joints, no edema, no cyanosis or clubbing. NEURO: Alert and oriented x 3. No acute neurological deficits. Speech is normal and follows commands. SKIN: Dry and warm Triage Information Reviewed: Yes Vital Signs On Initial Exam: Initial Vitals Temp Pulse Resp BP Pulse Ox 99.4 F 92 18 164/99 94 11/08/18 03:25 11/08/18 03:25 11/08/18 03:25 11/08/18 03:25 11/08/18 03:25 Vital Signs Reviewed: Yes Diagnostics - Vital Signs Vital Signs Temp Pulse Resp BP Pulse Ox 11/08/18 03:25 99.4 F 92 18 164/99 94 - Laboratory Result Diagrams: 11/08/18 04:04 11/08/18 04:04 Lab Statement: Any lab studies that have been ordered have been reviewed, and results considered in the medical decision making process. - Radiology Abdomen XR Radiology Interpretation Completed By: ED Physician Summary of Radiographic Findings: Increased colonic stool consistent with constipation. Pending official radiologist report. GIGU Course/Dx - Course Course Of Treatment: This patient is a 78 year old male presenting to [facility] with a chief complaint of nausea and vomiting. The patient was discharged yesterday on abx for diverticulitis. Abdomen XR was remarkable for constipation. A plan for discharge was discussed with the patient and he was agreeable with this plan. - Diagnoses Provider Diagnoses: Constipation Discharge - Sign-Out/Discharge Documenting (check all that apply): Patient Departure - Discharge Patient Received Moderate/Deep Sedation with Procedure: No - Discharge Plan Condition: Stable Disposition: HOME Patient Education Materials: Constipation (ED) Referrals: King Aponte MD [Primary Care Provider] - Additional Instructions: Return to ED with any new or worsening symptoms. - Attestation Statements Document Initiated by Scribe: Yes Documenting Scribe: Mckinley Millan Provider For Whom Scribe is Documenting (Include Credential): Lise Cabral MD Scribe Attestation: Mckinley Flaherty, scribed for Lise Cabral MD on 11/08/18 at 0515. Status of Scribe Document: Ready
[2018-11-08] MEDS ORDERED: Metoclopramide IV* 5 MG/ML 2 ML VIAL IV SLOW PU ONE (03:52)
[2018-11-08] MEDS ORDERED: NS 0.9% 1000 ML** 1,000 ML IV ONE (03:52)
[2018-11-08 04:13] LABS: ABS Eosinophils 0.1 10^3/ul (0-0.6); ABS Lymphocytes 0.5 10^3/ul (1.0-4.8); ABS Monocytes 0.7 10^3/ul (0-0.8); ABS Neutrophils 6.4 10^3/ul (1.5-7.7); Eosinophil % 1.8 %; Hematocrit 40 % (42-52); Hemoglobin 13.2 g/dL (14.0-18.0); Lymphocyte % 6.6 %; Mean Corpuscular HGB Conc 33 g/dL (31-36); Mean Corpuscular Hemoglobin 27 pg (27-31); Mean Corpuscular Volume 82 fL (80-94); Mean Platelet Volume 10.3 fL (7.4-10.4); Platelet Count 149 10^3/uL (150-450); Red Blood Count 4.87 10^6 /uL (4.18-5.48); Red Cell Distribution Width 18 % (10-15); White Blood Count 7.8 10^3/uL (3.5-10.8)
[2018-11-08 04:28] LABS: ALT 36 U/L (7-52); AST 34 U/L (13-39); Alkaline Phosphatase 73 U/L (34-104); Amylase 17 U/L (29-103); Anion Gap 9 mmol/L (2-11); BUN/Creatinine Ratio 8.9 (8-20); Blood Urea Nitrogen 8 mg/dL (6-24); C Reactive Protein 14.21 mg/L (<8.01); CO2 Carbon Dioxide 22 mmol/L (22-32); Calcium 8.9 mg/dL (8.6-10.3); Chloride 106 mmol/L (101-111); EGFR African American 99.3 (>60); Glucose 113 mg/dL (70-100); Magnesium 1.8 mg/dL (1.9-2.7); Potassium 3.5 mmol/L (3.5-5.0); Sodium 137 mmol/L (135-145)
[2018-11-08] MEDS ORDERED: diPHENhydraMINE IV* 50 MG/ML 1 ml VIAL (BENADRYL) SLOW PUSH ONE (04:43)
[2018-11-08] MEDS ORDERED: Bisacodyl SUPP* 10 MG SUPP PR ONE (04:47)
[2018-11-08] MEDS ORDERED: Magnesium CITRATE* 300 ML BTL PO ONE (04:47)
[2018-11-08] MEDS ORDERED: Pramipexole TAB* 0.125 MG PO ONE (05:25)
[2018-11-08] MEDS ORDERED: rOPINIRole TAB* 1 MG PO ONE (05:28)
[2018-11-08 05:52] VITALS: BP 164/91
== END 2018-11-08 05:49 | disposition home or self-care (01) ==
LOC: ED 03:23
DX: K59.00 Constipation, unspecified (principal); R11.2 Nausea with vomiting, unspecified; R51 Headache; R10.32 Left lower quadrant pain; D64.9 Anemia, unspecified; K21.9 Gastro-esophageal reflux disease without esophagitis; F32.9 Major depressive disorder, single episode, unspecified; Z88.1 Allergy status to other antibiotic agents; Z88.8 Allergy status to other drugs, medicaments and biological substances
CPT/HCPCS: 36415; 74019; 80053; 82150; 83690; 83735; 85025; 85730; 86140; 96361; 96374; 96375; 99283; A9270-GY; J1200; J2765